=== PATIENT | female | born 1985 | race Caucasian/White ===

== ENCOUNTER 2019-07-19 02:54 | Emergency (ER) | payer BC, SELFPAY ==
--- NOTE | ~2019-07-19 | CT_ITS ---
EXAMINATION: CT abdomen pelvis w con DATE: 07/19/2019 04:25 INDICATION: Epigastric abdominal pain. Nausea and vomiting. TECHNIQUE: Computed tomography (CT) of the abdomen and pelvis was performed with 100 mL Omnipaque 350 intravenous contrast. Automated exposure control and iterative reconstruction technique were employe d. The dose-length product was 341.96 mGy-cm. COMPARISON: None. FINDINGS: The visualized portions of the lung bases demonstrate minimal atelectasis. No pleural effus ion. The heart size is normal. No pericardial effusion. There is diffuse hepatic steatosis. There are gallstones in the gallbladder including the gallbladder neck. There is mild fat stranding adjacent t o the gallbladder. The spleen, pancreas, adrenal glands, and kidneys are normal. There are no dilated loops of bowel. The appendix is normal. There are no pathologically enlarged lymph nodes. There is t race pelvic ascites. There is mild lumbar spondylosis. IMPRESSION: 1. Acute cholecystitis. Reviewed, dictated and finalized at location A. IMPRESSION: 1. Acute cholecystitis.
--- NOTE | 2019-07-19 03:02 | ED.ABDPAIN ---
HPI - Abdominal Pain General Chief Complaint: Abdominal Pain Stated Complaint: abd pain, n/v Time Seen by Provider: 07/19/19 03:01 History of Present Illness HPI narrative: Epigastric abdominal pain for the past few hours. Started after eating macaroni and cheese. She had similar pain several years ago and was told that it ws most likely her gall bladder. On review of the chart she did have an ultrasound at that time showing multiple gall stones. She never followed up. Related Data Allergies Allergy/AdvReac Type Severity Reaction Status Date / Time No Known Allergies Allergy Verified 07/19/19 03:13 Review of Systems Review of Systems: All systems reviewed & are unremarkable except as noted in HPI and below Constitutional: Constitutional: Reports chills Cardiovascular: Cardiovascular: Denies chest pain Respiratory: Respiratory: Denies dyspnea Gastrointestinal: Gastrointestinal: Reports abdominal pain and Reports nausea PMFSH Past Medical History Medical History (Updated 07/19/19 @ 05:41 by Roderick Buchanan MD) Gallstones Social History Social History (Updated 07/19/19 @ 03:26 by Roderick Buchanan MD) Smoking status: Never smoker Exam Const: General: no acute distress and alert Nutritional Appearance: well nourished Orientation/consciousness: patient oriented x3 HENMT: Head: normal to inspection Resp: Effort & Inspection: normal respiratory effort Auscultation: clear to auscultation bilaterally Cardio: Rate: regular rate Rhythm: regular rhythm GI: Inspection: non-distended GI Palp: Yes Soft to palpation, Yes Tenderness to palpation present (GI) (epigastrium), No Guarding due to palpation present (GI) and No Rebound tenderness present Neuro: General: patient oriented x3, moves all extremities, no focal motor deficits and CN's II-XI intact bilaterally Speech: normal speech Course Vital Signs Vital signs: Vital Signs Temperature 36.2 C L 07/19/19 03:10 Pulse Rate 91 07/19/19 03:10 Respiratory Rate 18 07/19/19 03:10 Blood Pressure 147/89 H 07/19/19 03:10 Pulse Oximetry 99 07/19/19 03:10 Temperature 36.2 C L 07/19/19 03:10 Pulse Rate 92 07/19/19 05:19 Respiratory Rate 17 07/19/19 05:19 Blood Pressure 131/89 07/19/19 05:19 Pulse Oximetry 100 07/19/19 05:19 MDM - Abdominal Pain Differential Diagnosis Differential diagnosis: Likely abdominal pain, pancreatitis and other (gastritis, acute cholecystitis) Medical Records Attestation: I reviewed the patient's medical records. Lab Data Attestation: I reviewed the patient's lab results. Result diagrams: 07/19/19 03:22 07/19/19 04:17 Labs: Lab Results 07/19/19 07/19/19 07/19/19 Range/Units 03:22 04:01 04:01 WBC 7.6 (4.5-10.0) K/mm3 RBC 4.13 L (4.2-5.4) M/mm3 Hgb 14.0 (12.0-15.0) g/dL Hct 41.7 (37.0-47.0) % MCV 101.0 H (80-100) fl MCH 33.9 (26-34) pg MCHC 33.6 (32-36) g/dl RDW 12.7 (11.5-14.5) % Plt Count 262 (150-375) k/mm3 MPV 9.9 (7.4-10.4) fl Immature Gran % (Auto) 0.4 (0-0.5) % Neut % (Auto) 60.8 (45.5-73.1) % Lymph % (Auto) 25.2 (18.3-44.2) % Sibley % (Auto) 11.9 H (2.6-8.5) % Eos % (Auto) 0.5 (0-4.4) % Baso % (Auto) 1.2 (0.2-1.2) % Lymph # (Auto) 1.92 (0.9-3.2) K/mm3 Sibley # (Auto) 0.9 H (0.1-0.6) K/mm3 Eos # (Auto) 0.0 (0-0.3) K/mm3 Baso # (Auto) 0.1 (0.0-0.1) K/mm3 Abs Immat Gran (auto) 0.03 (0.00-0.031) K/mm3 Absolute Neuts (auto) 4.6 (1.3-6.7) K/mm3 Absolute Nucleated RBC 0.0 (0.0-0.012) K/mm3 Nucleated RBC % 0.0 (0.0-0.2) % Sodium 132 L (137-145) mmol/L Potassium 3.8 (3.4-5.0) mmol/L Chloride 95 L (98-107) mmol/L Carbon Dioxide 25 (22-30) mmol/L BUN 3 L (7-17) mg/dL Creatinine 0.50 L (0.7-1.0) mg/dL Estim Creat Clear Calc Not Reportable Estimated GFR > 60 (59 - ) Glucose 134 H (65-105) mg/dL Calci
[2019-07-19 03:10] VITALS: BP 147/89; PULSE 91; RESP 18; TEMP 36.2; O2SAT 99
--- NOTE | 2019-07-19 03:10 | PC.NURSE ---
pt asked to provided urine sample. pt states she cannot go
[2019-07-19] MEDS: ONDANSETRON INJ 4 MG/2 ML VIAL IV PUSH (03:20)
[2019-07-19] MEDS: PANTOPRAZOLE SODIUM IV 40 MG VIAL IV PUSH (03:22)
[2019-07-19 03:28] LABS: Basophils Absolute Auto 0.1 K/mm3 (0.0-0.1); Basophils Percent Auto 1.2 % (0.2-1.2); Eosinophils Percent Auto 0.5 % (0-4.4); Hematocrit 41.7 % (37.0-47.0); Immature Granulocyte Absolute 0.03 K/mm3 (0.00-0.031); Immature Granulocyte Percent A 0.4 % (0-0.5); Lymphocytes Absolute Auto 1.92 K/mm3 (0.9-3.2); Lymphocytes Percent Auto 25.2 % (18.3-44.2); Mean Corpuscular HGB Conc 33.6 g/dl (32-36); Mean Corpuscular Hemoglobin 33.9 pg (26-34); Mean Platelet Volume 9.9 fl (7.4-10.4); Monocytes Absolute Auto 0.9 K/mm3 (0.1-0.6); Monocytes Percent Auto 11.9 % (2.6-8.5); Neutrophils Absolute Auto 4.6 K/mm3 (1.3-6.7); Neutrophils Percent Auto 60.8 % (45.5-73.1); Platelet Count Result 262 k/mm3 (150-375); Red Blood Count 4.13 M/mm3 (4.2-5.4); Red Cell Distribution Width 12.7 % (11.5-14.5); White Blood Count 7.6 K/mm3 (4.5-10.0)
[2019-07-19 04:14] LABS: Add Urine Microscopic? YES; Appearance Urine Clear (Clear); Bacteria Urine Trace /hpf; Bilirubin Urine Negative (Negative); Blood Urine Negative (Negative); Color Urine Yellow (Yellow); Glucose Urine UA Negative (Negative); Ketones Urine Trace mg/dL (Negative); Leukocyte Esterase Ur Negative LEU/UL (Negative); Mucus Urine Rare /lpf; Nitrate Urine Negative (Negative); Protein Urine Negative (Negative); RBC Urine 0-2 /hpf (0-2); Squamous Epithelial Cell Urine Occasional /hpf (Few); Urobilinogen Urine Negative mg/dL (<2.0); WBC Urine 0-3 /hpf
[2019-07-19 04:18] LABS: Estimated Glomerular Filt Rate > 60
[2019-07-19 04:21] LABS: Alanine Aminotransferase 102 U/L (4-35); Albumin Level 4.5 g/dL (3.5-5.1); Alkaline Phosphatase 76 U/L (38-126); Aspartate Amino Transferase 223 U/L (14-36); Bilirubin,Total 1.2 mg/dL (0.2-1.3); Blood Urea Nitrogen 3 mg/dL (7-17); Carbon Dioxide 25 mmol/L (22-30); Chloride 95 mmol/L (98-107); Estimated Glomerular Filt Rate > 60; Glucose 134 mg/dL (65-105); Lipase 86 U/L (23-300); Potassium 3.8 mmol/L (3.4-5.0); Sodium 132 mmol/L (137-145)
[2019-07-19 05:19] VITALS: BP 131/89; PULSE 92; RESP 17; O2SAT 100
[2019-07-19 05:45] VITALS: BP 130/77; PULSE 77; RESP 19; O2SAT 97
== END 2019-07-19 05:45 | disposition home or self-care (01) ==
PROVIDERS: Emergency Provider Emergency Medicine
DX: R10.84 Generalized abdominal pain (principal)
CPT/HCPCS: 36415; 74177; 80053; 81001; 81025; 83690; 85025; 96374; 96375; 99284; A9270; C9113; J2405; J3010; Q9967

== ENCOUNTER 2019-09-05 14:02 | Outpatient (CLI) | payer BC, SELFPAY ==
[2019-09-05 14:53] LABS: Alanine Aminotransferase 111 U/L (4-35); Albumin Level 4.3 g/dL (3.5-5.1); Alkaline Phosphatase 92 U/L (38-126); Amylase 51 U/L (30-110); Aspartate Amino Transferase 271 U/L (14-36); Bilirubin,Total 0.9 mg/dL (0.2-1.3); Lipase 42 U/L (23-300)
== END 2019-09-05 14:03 | disposition home or self-care (01) ==
PROVIDERS: Visit Provider Surgery
DX: K80.00 Calculus of gallbladder with acute cholecystitis without obstruction (principal); Z01.812 Encounter for preprocedural laboratory examination
CPT/HCPCS: 36415; 80076; 82150; 83690; 86850; 86900; 86901

== ENCOUNTER 2019-09-10 00:36 | Outpatient (CLI) | payer BC, SELFPAY ==
[2019-09-10 18:32] LABS: SARS-CoV-2 RNA PCR Negative
== END 2019-09-10 00:37 | disposition home or self-care (01) ==
LOC: ANHCOVIDDT 00:36
PROVIDERS: Visit Provider Surgery
DX: Z01.812 Encounter for preprocedural laboratory examination (principal); Z11.59 Encounter for screening for other viral diseases
CPT/HCPCS: 87635; C9803; U0003

== ENCOUNTER 2019-09-13 01:54 | Day surgery (SDC) | payer BC, SELFPAY ==
[2019-09-01 13:10] VITALS: BMI 24.3
[2019-09-13] VITALS (9 sets, daily range): BP systolic 104–134; BP diastolic 58–89; PULSE 61–102; RESP 12–20; TEMP 36.3–37; O2SAT 98–100
[2019-09-13] MEDS: LACTATED RINGERS 1,000 ML 30 ML IV CONT ×2 (08:10→10:40)
[2019-09-13] MEDS: KETOROLAC 15 MG/ML VIAL (*BKC) IV PUSH (08:10)
[2019-09-13 08:21] LABS: Hematocrit 38.4 % (37.0-47.0); Hemoglobin 13.3 g/dL (12.0-15.0); Mean Corpuscular HGB Conc 34.6 g/dl (32-36); Mean Corpuscular Hemoglobin 35.2 pg (26-34); Mean Corpuscular Volume 101.6 fl (80-100); Mean Platelet Volume 9.1 fl (7.4-10.4); Platelet Count Result 248 k/mm3 (150-375); Red Blood Count 3.78 M/mm3 (4.2-5.4); Red Cell Distribution Width 13.1 % (11.5-14.5); White Blood Count 7.3 K/mm3 (4.5-10.0)
[2019-09-13 08:31] LABS: Alanine Aminotransferase 79 U/L (4-35); Alkaline Phosphatase 93 U/L (38-126); Aspartate Amino Transferase 170 U/L (14-36); Bilirubin,Total 1.2 mg/dL (0.2-1.3)
--- NOTE | 2019-09-13 09:01 | PM.IMHP ---
H&P: HPI History of Present Illness Chief complaint: Acute Cholecystitis Narrative: Lalitha Piper is a 34 year old female who presents with a prior attack of abdominal pain and was worked up in the ED in June. She had evidence of acute cholecystitis, but was able to go home and felt better after some time. She now presents for elective lap ansley. Review of Systems Review of Systems: All systems reviewed & are unremarkable except as noted in HPI and below Constitutional: Constitutional: Denies chills, Denies fever(s), Denies headache(s) and Denies weight loss Eyes: Eyes: Denies change in vision ENT: Denies dizziness, Denies headache(s), Denies neck mass and Denies throat swelling Cardiovascular: Cardiovascular: Denies chest pain, Denies lightheadedness and Denies dyspnea Respiratory: Respiratory: Denies cough, Denies dyspnea and Denies wheezing Gastrointestinal: Gastrointestinal: Denies abdominal pain, Denies change in bowel habits, Denies nausea and Denies vomiting Genitourinary: Genitourinary: Denies hematuria and Denies dysuria Musculoskeletal: Musculoskeletal: Reports as per HPI Integumentary/Breasts: Skin/Breast: Reports as per HPI Neurologic: Denies dizziness and Denies headache(s) Allergic/Immunologic: Allergic/Immunologic: Denies throat swelling and Denies wheezing PMFSH Past Medical History Medical History Gallstones History of depression Family History Family History Mother Lupus Sibling Detached retina Grandparent Cancer Social History Social History Smoking packs per day: 0.5 Smoking cigarettes per day: 10.0 Years smoked: 10 Smoking pack-years: 5.00 Smoking status: Former smoker Tobacco type: e-cigarettes/vaping Additional smoking assessment comments: QUIT SMOKING CIGARETTES 6 YEARS AGO. 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 Gender identity (if verbalized by the patient): Female Spiritual care concerns: No Meds Home Medications and Allergies Home Medications Medication Instructions Recorded Confirmed Type multivitamin 1 tablet PO DAILY 09/01/19 09/13/19 History Allergies Allergy/AdvReac Type Severity Reaction Status Date / Time No Known Allergies Allergy Verified 09/13/19 08:21 Vital Signs Vital Signs - 24 hr 09/13/19 08:32 Temperature 37.0 C Pulse Rate 96 Respiratory Rate 20 Blood Pressure 125/77 Pulse Oximetry 100 Exam Const: General: no acute distress and alert Orientation/consciousness: patient oriented x3 HENMT: Head: normocephalic and atraumatic Ears: hearing grossly normal bilaterally General nose exam: Normal nares present Mouth: Yes Normal oral and palatal mucosa present Eyes: Periorbital: periorbital findings normal Sclera: sclerae normal EOM: EOMs intact bilaterally Neck: Neck: normal visual inspection, no lymphadenopathy and trachea midline Chest: Chest palpation & inspection: normal inspection of the chest Resp: Effort & Inspection: normal respiratory effort Auscultation: clear to auscultation bilaterally Cardio: Jugular venous distension: no JVD Rate: regular rate Rhythm: regular rhythm Heart sounds: S1 normal heart sound present and S2 normal heart sound present Peripheral pulses: Peripheral pulses 2+ throughout GI: Inspection: normal to inspection GI Palp: Yes Soft to palpation, No Tenderness to palpation present (GI), No Guarding due to palpation present (GI) and No Rebound tenderness present Percussion: Yes normal to percussion Auscultation: normal bowel sounds : General: Yes no CVA tenderness Back/Spine/Pelvis: Back: no CVA tenderness Neuro: General: patient oriented x3, no focal motor deficits and CN's II-X
--- NOTE | 2019-09-13 09:07 | WPDANESEPPF ---
Anes - Initial Pre Proc Eval Procedure: Operation Date: 09/13/19 09:30 Proposed Procedures p Laparoscopic Cholecystectomy, Possible Open - Benji Adames DO Date/Time: 09/13/19 09:07 Surgeon: Benji Adames DO Pre Op Diagnosis: Acute Cholecystitis Patient Data Age: 34 Gender: F Height: 1.65 m Weight: 65 kg Last Vital Signs Temp 37.0 C 09/13/19 08:32 Pulse 96 09/13/19 08:32 Resp 20 09/13/19 08:32 BP 125/77 09/13/19 08:32 Pulse Ox 100 09/13/19 08:32 Allergies Allergy/AdvReac Type Severity Reaction Status Date / Time No Known Allergies Allergy Verified 09/13/19 08:21 Home Medications Medication Instructions Recorded Confirmed Type multivitamin 1 tablet PO DAILY 09/01/19 09/13/19 History Laboratory Tests 09/13/19 09/13/19 08:07 08:07 WBC 7.3 K/mm3 K/mm3 (4.5-10.0) RBC 3.78 M/mm3 L M/mm3 (4.2-5.4) Hgb 13.3 g/dL g/dL (12.0-15.0) Hct 38.4 % % (37.0-47.0) MCV 101.6 fl H fl (80-100) MCH 35.2 pg H pg (26-34) MCHC 34.6 g/dl g/dl (32-36) RDW 13.1 % % (11.5-14.5) Plt Count 248 k/mm3 k/mm3 (150-375) MPV 9.1 fl fl (7.4-10.4) Total Bilirubin 1.2 mg/dL mg/dL (0.2-1.3) Direct Bilirubin 0.0 mg/dL mg/dL (0-0.3) AST 170 U/L H U/L (14-36) ALT 79 U/L H U/L (4-35) Alkaline Phosphatase 93 U/L U/L (38-126) Total Protein 7.0 g/dL g/dL (6.3-8.2) Albumin 4.0 g/dL g/dL (3.5-5.1) Patient hx anesthesia problems: none Family hx anesthesia problems: none [facility] Past Medical History Medical History (Updated 09/13/19 @ 09:08 by Rasta Casillas MD) Anxiety Eczema Gallstones History of depression Family History Family History Mother Lupus Sibling Detached retina Grandparent Cancer Social History Social History Smoking packs per day: 0.5 Smoking cigarettes per day: 10.0 Years smoked: 10 Smoking pack-years: 5.00 Smoking status: Former smoker Tobacco type: e-cigarettes/vaping Additional smoking assessment comments: QUIT SMOKING CIGARETTES 6 YEARS AGO. 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 Questions were solicited and answers provided to the satisfaction of the patient/family/POA.
[2019-09-13] MEDS: MIDAZOLAM HCL 2 MG/2 ML VIAL IV PUSH (09:20)
[2019-09-13] MEDS: ceFAZolin 2 GM/D5W 50 ML 2 GM/50 ML BAG IVPB (09:24)
[2019-09-13] MEDS: BUPIVACAINE/EPINEPHRINE 0.5% 10 ML VIAL 30 ML INFILTRATE (09:49)
--- NOTE | 2019-09-13 10:47 | PM.PROC ---
Procedure Note - Detailed Date of procedure: 09/13/19 Pre-op diagnosis: Acute Cholecystitis Post-op diagnosis: same Procedure performed: Laparoscopic Cholecystectomy Description of procedure: Procedure as well as risks, benefits, and alternatives were discussed with patient. Written consent was obtained and placed in chart prior to procedure. The patient was brought back to surgical suite. Patient was placed in supine position on operating table. Time-out was done to confirm patient and procedure. Patient was then intubated by the anesthesia department. Abdomen was prepped and draped in sterile fashion using chlorhexidine prep. 0.5% bupivacaine with epinephrine was infiltrated at each site of incision. An 11 millimeter vertical incision was made at the inferior portion of the umbilicus using a 15 blade scalpel. Blunt dissection was carried down to the linea alba. The linea alba was then incised using a 15 blade scalpel. The peritoneum was then bluntly entered. An 11 millimeter trocar was inserted and cabon dioxied insuflation was used to create a pneumoperitoneum. The camera was inserted and the abdomen was inspected. The patient was placed in reverse Trendelenberg position and rotated slightly to the left. A 5 millimeter incision was made in the epigastric region, and a 5 millimeter trocar was inserted under direct visualization. Two 5 millimeter incisions were made in the right upper quadrant, and two 5 millimeter trocars were inserted under direct visualization. The gallbladder was identified and grasped at the fundus and retracted superiorly. It was then grasped at the infundibulum retracted laterally. Careful dissection around the neck of the gallbladder was performed using blunt dissection with a [place] grasper and hook electrocautery. The cystic duct was identified, and a window was created behind it. The cystic artery was also identified and a window was created behind it. The critical view of safety was identified, visualizing the cystic duct running directly into the neck of the gallbladder, and the cystic artery running directly into the wall of the gallbladder. A 5 millimeter clip fly finisher was then used to place 2 clips proximally and 1 clip distally on both the cystic duct and cystic artery. They were then both transected using endoscopic scissors. Once safely away from the rohit hepatitis, the gallbladder was dissected free from the liver bed using hook electrocautery. Hemostasis was achieved along the way. The gallbladder was removed completely and then removed through the umbilical port. The liver bed was then inspected. Hemostasis appeared adequate, and our clips appeared secure. The area was gently irrigated with sterile saline. No other abnormalities were seen. The patient was flattened out in bed, and 1 final inspection was made around the abdominal cavity. The ports were then removed under direct visualization, the camera was removed, and the pneumoperitoneum was released. The fascia of the umbilical incision was approximated using an 0 Vicryl [id number] suture. The skin of the incisions was approximated using 4-0 Monocryl subcuticular sutures. Exofin glue was applied on top. The patient was then awakened from anesthesia, extubated, and transferred to recovery. Anesthesia: GETA and local (0.5% bupivicaine with epinephrine) Surgeon: Benji Adames DO Estimated blood loss (mL): 5 Complications: No immediate complications Condition: stable Disposition: same day Findings: This is a 34-year-old woman who presented with a prior episode of acute cholecystitis. She presented to the emergency department in June and a CT of her abdomen and pelvis showed evidence of acute cholecystitis. She had prior ultrasound 5 years ago that showed evidence of cholelithiasis. She improved after that initial episode in the emergency department and was minimally symptomatic after that. Discussions were made with the patient about treat
== END 2019-09-13 12:31 | disposition home or self-care (01) ==
PROVIDERS: Visit Provider Surgery
PROC: 0FT44ZZ Resection of Gallbladder, Percutaneous Endoscopic Approach (ICD-10-PCS; CPT 47562; principal; 2019-09-13 09:30)
DX: K80.10 Calculus of gallbladder with chronic cholecystitis without obstruction (principal); F17.290 Nicotine dependence, other tobacco product, uncomplicated
CPT/HCPCS: 47562; 36415; 80076; 85027; 88304; J0690; J1100; J1885; J2250; J2270; J2405; J2704; J7030; J7120

== ENCOUNTER 2021-09-29 05:36 | Inpatient (IN) | payer BC, SELFPAY ==
[2021-09-29] VITALS (25 sets, daily range): BP systolic 127–153; BP diastolic 82–108; PULSE 95–120; RESP 15–34; TEMP 36.1–36.3; O2SAT 93–100
--- NOTE | ~2021-09-29 | XR_ITS ---
EXAMINATION: XR abdomen obstructive series DATE: 10/01/2021 08:21 INDICATION: Adynamic ileus. TECHNIQUE: Upright and supine views of the abdomen were obtained. COMPARISON: CT abdomen pelvis 09/29/2021 FINDINGS: There are no dilated loops of bowel. No free intraperitoneal gas. There are airspace opacit ies at the lung bases, likely atelectasis. There are small pleural effusions. Surgical clips in the r ight upper quadrant are likely from cholecystectomy. IMPRESSION: 1. Nonobstructive bowel gas pattern. 2. Small pleural effusions. Reviewed, dictated and finalized at location A.
--- NOTE | ~2021-09-29 | XR_ITS ---
XR abdomen NG/feed tube insert INDICATION: Evaluate NG tube position. TECHNIQUE: Limited KUB perform for evaluating NG tube . COMPARISON: 10/01/2021 FINDINGS: NG tube tip in the stomach. Visualized bowel gas pattern is nonspecific.Cardiomegaly. Poss ible mild interstitial edema. Small right pleural effusion. IMPRESSION: 1: NG tube tip in the stomach. 2: Cardiomegaly with probable mild interstitial edema. Reviewed, dictated and finalized at location A.
--- NOTE | ~2021-09-29 | XR_ITS ---
EXAMINATION: XR chest 1V portable DATE: 10/02/2021 05:41 INDICATION: Respiratory failure. TECHNIQUE: A single frontal view of the chest was obtained. COMPARISON: Chest single view 10/01/21, chest CT 10/01/2021 FINDINGS: The lung volumes are small. There are small pleural effusions. There are airspace opacities at the lung bases. No pneumothorax. The heart size is normal. The endotracheal tube tip is 3.2 cm ab ove the shefali. The nasogastric tube tip is in the stomach. Surgical clips in the right upper quadran t are likely from cholecystectomy. A left upper extremity peripherally inserted central venous cathet er (PICC) is seen with tip at the superior cavoatrial junction. IMPRESSION: 1. Stable small lung volumes with airspace opacities at the lung bases, likely atelectasis. 2. Stable small pleural effusions. Reviewed, dictated and finalized at location A.
--- NOTE | ~2021-09-29 | CT_ITS ---
EXAMINATION: CT abdomen pelvis w con DATE: 09/29/2021 10:01 INDICATION: Epigastric abdominal pain, nausea and vomiting. Alcohol abuse. TECHNIQUE: Computed tomography (CT) of the abdomen and pelvis was performed with 100 CC Omnipaque 350 intravenous contrast. Automated exposure control and iterative reconstruction technique were employe d. Exam dose: 280.90 mGy-cm total exam DLP. COMPARISON: 07/19/2019 CT abdomen pelvis FINDINGS: Mild bilateral lower lobe atelectasis. Normal heart size. No pericardial or pleural effusio n. Diffuse hepatic steatosis. No hepatic space-occupying mass lesion is detected. Status post cholecystectomy. There is extensive fat stranding and fluid within the upper abdomen, surrounding the pancreas, extend ing along the left and right anterior pararenal fascia, surrounding the duodenum and portions of the stomach. There is duodenal dilatation and fluid suggesting adynamic ileus. Findings are consistent wi th acute pancreatitis. Normal morphology of the adrenal glands. Normal splenic size. No renal mass lesion or urinary tract c alculus or hydroureteronephrosis. Small wedge-shaped area of diminished attenuation in the lateral lo wer pole the right kidney may be due to acute pyelonephritis. Normal caliber of the abdominal aorta. No intraperitoneal or retroperitoneal or pelvic mass lesion or adenopathy or ascites. The uterus, adnexal areas and urinary bladder are unremarkable. There is mild free fluid in the parac olic gutters and adnexal areas and posterior cul-de-sac. No bowel obstruction or intraperitoneal free air. Small fat-containing umbilical hernia. Included skeletal structures are unremarkable. IMPRESSION: Acute pancreatitis Reviewed, dictated and finalized at Location A. Reviewed, dictated and finalized at location A. IMPRESSION: Acute pancreatitis
--- NOTE | ~2021-09-29 | XR_ITS ---
EXAMINATION: XR chest PICC line Exam Date/Time: 10/01/2021 17:38 CDT HISTORY: picc placement Comparison: X-ray chest 1:[address] chest abdomen and pelvis, 4:06 PM RESULT: Lines, tubes, and devices: New left upper extremity PICC, terminating at the cavoatrial junction. En dotracheal and nasogastric tubes remain in stable and good position. Cholecystectomy clips Lungs and pleura: Persistent bilateral lower lung consolidation and small-moderate bilateral effusio ns. Cardiomediastinal silhouette: Stable. Other: No acute osseous or upper abdominal finding. IMPRESSION: New left upper extremity PICC, in good position. No other significant interval change. Reviewed, dictated and finalized at location K.
--- NOTE | ~2021-09-29 | US_ITS ---
EXAMINATION: US renal BI DATE: 10/01/2021 18:17 INDICATION: Acute kidney injury rule out hydronephrosis TECHNIQUE: Multiple ultrasound grayscale images of the kidneys were obtained. COMPARISON: CT cap, same date FINDINGS: The right kidney measures 11.4 x 4.7 x 5.7 cm. The left kidney measures 12.8 x 5.7 x 6.1 cm. The kidn eys demonstrate normal parenchymal echogenicity. Right midpole renal anomaly detected on prior CT is not well seen sonographically There is no hydronephrosis. The bladder is normal. Echogenic liver pare nchyma. IMPRESSION: 1. No hydronephrosis. 2. Hepatic steatosis. Reviewed, dictated and finalized at location K.
--- NOTE | ~2021-09-29 | US_ITS ---
EXAMINATION: US percutaneous drain w cath DATE: 10/02/2021 16:46 INDICATION: Ascites. Abdominal compartment syndrome. TECHNIQUE: The procedure and its risks, benefits, and alternatives were discussed with the patient's mother. Potential risks discussed included bleeding and infection. The skin was prepped and draped in sterile fashion. 1% lidocaine was used for local anesthesia. Under ultrasound guidance, an 8.5 Fr pi gtail catheter with trochar was advanced into the ascites in the left lower quadrant. The catheter wa s stitched to the skin and a dressing was applied. There were no immediate complications. FINDINGS: Ultrasound images demonstrate ascites and the catheter within the fluid. IMPRESSION: 1. Successful ultrasound-guided peritoneal drain placement yielding clear, brown fluid. Reviewed, dictated and finalized at location A. IMPRESSION: 1. Successful ultrasound-guided peritoneal drain placement yielding clear, bro wn fluid.
--- NOTE | ~2021-09-29 | CT_ITS ---
EXAMINATION: CT BRAIN W/O DATE: 10/01/2021 16:14 INDICATION: Cardiac arrest. Acute pancreatitis. TECHNIQUE: Computed tomography (CT) of the head was performed without intravenous contrast. The dose- length product was 605.33 mGy-cm. Automated exposure control and iterative reconstruction technique w ere employed. COMPARISON: No prior studies for comparison. FINDINGS: Normal brain parenchymal volume for age. Normal rodas-white differentiation. No acute intrac ranial hemorrhage, infarction, mass or mass effect. No ventriculomegaly or midline shift. Midline sagittal images demonstrate a normal corpus callosum, c raniovertebral junction and sella turcica. Basilar cisterns are patent. Paranasal sinuses and mastoids are pneumatized. No depressed skull fractures. IMPRESSION: 1. No acute intracranial abnormality. Reviewed, dictated and finalized at location A.
--- NOTE | ~2021-09-29 | CT_ITS ---
EXAMINATION: CT chest abdomen pelvis wo con DATE: 10/01/2021 16:14 INDICATION: Cardiac arrest, acute pancreatitis . TECHNIQUE: Computed tomography (CT) of the chest, abdomen, and pelvis was performed without intraveno us contrast. Automated exposure control and iterative reconstruction technique were employed. The dos e-length product was 1058.83 mGy-cm. COMPARISON: CT abdomen and pelvis 09/29/2021. FINDINGS: Endotracheal and nasogastric tubes, in good position Thoracic aorta: No significant dilation or calcification. Lung parenchyma and airways: New bilateral upper lung dependent and lower lobe consolidation with vol ume loss. Thoracic inlet, axillae and chest wall: No thyroid or soft tissue mass. No axillary lymphadenopathy. Mild chest wall edema. Likely presternal soft tissue contusion. Mediastinum: No mass or lymphadenopathy. Heart and pericardium: Trace pericardial fluid. Coronary artery calcifications: Absent. Pleura: New moderate bilateral pleural fluid collections. Thoracic bones: Nondisplaced fractures anterior right fifth and sixth ribs. ABDOMEN/PELVIS: Liver: Hepatomegaly and steatosis. Biliary/Gallbladder: Gallbladder is absent. No bile duct dilation. Pancreas: Slightly increased pancreatic edema. Slightly increased degree of peripancreatic fluid. Spleen: Normal. Adrenals:No mass. Kidneys: Wedge-shaped hyperdensity in the right mid pole, may reflect contrast staining an area of is chemia/infarct or infection. GI tract: Decreased dilation of the second portion of the duodenum. Colonic submucosal fat as can be seen with chronic IBD, obesity, chemotherapy treatment, and celiac disease. No small or large bowel d ilation. Appendix not visualized. Mesentery/Peritoneum: Significantly increased volume of mesenteric, peritoneal, and deep pelvic fluid . Slightly hyperdense fluid layering in the left paracolic gutter. Ill-defined hyperdensity within a fluid collection in the anterior upper abdominal mesentery. Retroperitoneum: No mass Pelvis: The bladder is decompressed by a Abbasi catheter. Soft Tissues: Increased body wall edema. Abdominopelvic bones: No acute osseous finding in the abdomen/pelvis. IMPRESSION: Nondisplaced fractures of the anterior right fifth and sixth ribs. New bilateral dependent and lower lobe atelectasis/consolidation. New moderate bilateral pleural effusions. Increased pancreatic edema and peripancreatic inflammatory change. Possible upper abdominal mesenteric hematoma. Increased, now moderate abdominopelvic ascites. Hyperdensity in areas of abdominopelvic fluid may reflect proteinace ous or hemorrhagic content. Small infectious focus versus infarct in the right kidney midpole. Reviewed, dictated and finalized at location K. IMPRESSION: Nondisplaced fractures of the anterior right fifth and sixth ribs. New bilatera l dependent and lower lobe atelectasis/consolidation. New moderate bilateral pl eural effusions. Increased pancreatic edema and peripancreatic inflammatory matias nge. Possible upper abdominal mesenteric hematoma. Increased, now moderate abdo minopelvic ascites. Hyperdensity in areas of abdominopelvic fluid may reflect p roteinaceous or hemorrhagic content. Small infectious focus versus infarct in t he right kidney midpole.
--- NOTE | ~2021-09-29 | XR_ITS ---
EXAMINATION: XR chest ET placement DATE: 10/01/2021 13:21 INDICATION: Intubation. TECHNIQUE: A single frontal view of the chest was obtained. COMPARISON: CT abdomen and pelvis 09/29/2021 FINDINGS: There are airspace opacities in the perihilar regions and lower lung zones. There is a smal l left pleural effusion. No pneumothorax. The heart size is normal. The endotracheal tube tip is 1.6 cm above the shefali. The nasogastric tube tip is in the stomach. Surgical clips in the right upper qu adrant are likely from cholecystectomy. IMPRESSION: 1. Airspace opacities in the perihilar regions and lower lung zones, consistent with atelectasis vers us pneumonia versus pulmonary edema. 2. Small left pleural effusion. Reviewed, dictated and finalized at location A. IMPRESSION: 1. Airspace opacities in the perihilar regions and lower lung zones, consistent with atelectasis versus pneumonia versus pulmonary edema. 2. Small left pleural effusion.
[2021-09-29] MEDS: ONDANSETRON INJ 4 MG/2 ML VIAL IV PUSH ×5 (05:57→23:03)
[2021-09-29] MEDS: HYDROmorphone HCL INJ (*CRX) 1 MG/ML SYR 0.5 MG IV PUSH ×9 (06:00→23:02)
[2021-09-29] MEDS: SODIUM CHLORIDE 0.9% IV 2,000 ML 999 ML IV CONT (06:01)
[2021-09-29] MEDS: FAMOTIDINE 20 MG/2 ML VIAL IV PUSH (06:01)
--- NOTE | 2021-09-29 06:09 | ED.GENADULT ---
HPI - General Adult General Chief complaint: Abdominal Pain <Carlos Mcmullen MD - Last Filed: 09/29/21 07:07> Stated complaint: abd pain <Carlos Mcmullen MD - Last Filed: 09/29/21 07:07> Time Seen by Provider: 09/29/21 05:41 <Carlos Mcmullen MD - Last Filed: 09/29/21 07:07> History of Present Illness HPI narrative: This is a 36-year-old female with a history of alcohol use disorder presents to ED with sudden onset of epigastric pain that started approximately midnight. It is in the epigastric area and radiates to the rest of her stomach. It is 10 on 10 in intensity. Sudden onset constant. She felt like this before when she had gallbladder disease. There are no exacerbating or relieving factors. Is associated with persistent nausea and vomiting the patient has not been able to keep down water or food. She also has associated chills. She denies diarrhea or urinary symptoms. She denies chest pain or difficulty breathing. <Carlos Mcmullen MD - Last Filed: 09/29/21 07:07> Related Data Home medications: Home Medications Medication Instructions Recorded Confirmed multivitamin 1 tablet PO DAILY 09/01/19 09/30/19 <Carlos Mcmullen MD - Last Filed: 09/29/21 07:07> Allergies/adverse reactions: Allergies Allergy/AdvReac Type Severity Reaction Status Date / Time No Known Allergies Allergy Verified 09/29/21 07:00 <Carlos Mcmullen MD - Last Filed: 09/29/21 07:07> Review of Systems Review of Systems: CONSTITUTIONAL: Denies night sweats. EYES: No eye pain ENT: Denies rhinorrhea CARDIOVASCULAR: Denies palpitations RESPIRATORY: Denies hemoptysis GASTROINTESTINAL: Denies hematemesis GENITOURINARY: Denies hematuria. SKIN: Denies rash MUSCULOSKELETAL: Denies myalgia. NEUROLOGIC: Denies weakness. PSYCHIATRIC: Denies delusions <Carlos Mcmullen MD - Last Filed: 09/29/21 07:07> [facility] Past Medical History Medical History: Medical History (Updated 09/29/21 @ 11:52 by Kirsten Fisher MD) Anxiety Eczema Gallstones History of depression <Carlos Mcmullen MD - Last Filed: 09/29/21 07:07> Surgical History Surgical History: Surgical History Hx laparoscopic cholecystectomy <Carlos Mcmullen MD - Last Filed: 09/29/21 07:07> Family History Family History: Family History Mother Lupus Sibling Detached retina Grandparent Cancer <Carlos Mcmullen MD - Last Filed: 09/29/21 07:07> Social History Social History: Social History Smoking packs per day: 0.5 Smoking cigarettes per day: 10.0 Years smoked: 10 Smoking pack-years: 5.00 Smoking status: Former smoker Tobacco type: e-cigarettes/vaping Additional smoking assessment comments: QUIT SMOKING CIGARETTES 6 YEARS AGO. 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 EYES: PERRLA/EOMI, NOSE: Normal no drainage NECK: Supple, Trachea midline RESPIRATORY: CTAB, No increased work of breathing. CARDIOVASCULAR: S1S2 appreciated ABDOMINAL: abdomen is exquisitely tender in the epigastric area, Mild tenderness the right upper quadrant.the rest of the abdomen is soft nontender with no guarding or rebound. MUSCULOSKELETAl: No obvious deformities NEURO: Alert. Moving 4/4 extremities SKIN:: Warm, dry. Normal color PSYCHIATRIC: Normal affect <Carlos Mcmullen MD - Last Filed: 09/29/21 07:07> Course Course Emergency Course: This is a 36-year-old female presenting to ED with sudden onset of
[2021-09-29 06:29] LABS: Basophils Absolute Auto 0.2 K/mm3 (0.0-0.1); Basophils Percent Auto 1.3 % (0.2-1.2); Eosinophils Absolute Auto 0.1 K/mm3 (0-0.3); Eosinophils Percent Auto 0.8 % (0-4.4); Hematocrit 41.5 % (37.0-47.0); Hemoglobin 13.5 g/dL (12.0-15.0); Immature Granulocyte Absolute 0.08 K/mm3 (0.00-0.031); Immature Granulocyte Percent A 0.5 % (0-0.5); Lymphocytes Absolute Auto 3.83 K/mm3 (0.9-3.2); Lymphocytes Percent Auto 25.4 % (18.3-44.2); Mean Corpuscular HGB Conc 32.5 g/dl (32-36); Mean Corpuscular Hemoglobin 36.2 pg (26-34); Mean Corpuscular Volume 111.3 fl (80-100); Mean Platelet Volume 9.5 fl (7.4-10.4); Monocytes Absolute Auto 1.4 K/mm3 (0.1-0.6); Monocytes Percent Auto 9.5 % (2.6-8.5); Neutrophils Absolute Auto 9.4 K/mm3 (1.3-6.7); Neutrophils Percent Auto 62.5 % (45.5-73.1); Platelet Count Result 322 k/mm3 (150-375); Red Blood Count 3.73 M/mm3 (4.2-5.4); Red Cell Distribution Width 12.3 % (11.5-14.5); White Blood Count 15.1 K/mm3 (4.5-10.0)
[2021-09-29 06:46] LABS: Alanine Aminotransferase 54 U/L (6-35); Albumin Level 3.8 g/dL (3.5-5.1); Alkaline Phosphatase 148 U/L (38-126); Anion Gap 15 mmol/L (8-16); Aspartate Amino Transferase 230 U/L (14-36); Bilirubin,Total 1.4 mg/dL (0.2-1.3); Blood Urea Nitrogen 5 mg/dL (7-17); Calcium 7.8 mg/dL (8.4-10.2); Carbon Dioxide 21 mmol/L (22-30); Chloride 105 mmol/L (98-107); Estimated CRCL calculation 116 ml/min; Estimated Glomerular Filt Rate > 60; Glucose 161 mg/dL (65-110); Potassium 3.2 mmol/L (3.4-5.0); Sodium 141 mmol/L (137-145)
[2021-09-29 07:13] LABS: Ethanol 178 mg/dL (<10)
[2021-09-29 07:49] LABS: Lipase 31923 U/L (23-300)
[2021-09-29 09:39] LABS: SARS-CoV-2 RNA PCR Negative
[2021-09-29] MEDS: SODIUM CHLORIDE 0.9% IV 1,000 ML 999 ML IV CONT (09:41)
[2021-09-29 11:58] LABS: Glucose Point of Care 161 mg/dl (65-105)
--- NOTE | 2021-09-29 12:40 | PM.IMHP ---
H&P: HPI History of Present Illness Date/Time: 09/29/21 12:40 Chief Complaint: Abdominal pain. Narrative: This is a pleasant 36-year-old female with history of alcohol abuse who presented to the emergency department via EMS from home for evaluation of abdominal pain. Last evening around midnight when she was getting ready for bed she developed nausea and she had an episode of nonbilious, nonbloody emesis. She goes on to say that it is not unusual for her to have such episodes since she had a cholecystectomy a couple of years ago however she continued to have multiple episodes of emesis followed by dry heaves throughout the night. After a couple of hours she developed abdominal pain which she initially attributed to the retching, however it quickly increased in severity and has been constant since that time. She describes a squeezing and aching pain centered in the epigastric region which radiates diffusely throughout the upper abdomen. At its height she rates the pain 9.5/10 though IV pain medications given in the emergency department have taken the edge off. Pertinent findings on workup in the emergency department include a white blood cell count of 15.1, total bili I 0.4, AST 230, ALT 54, alkaline phosphatase 148, lipase of 31,923, and ethyl alcohol level was 178. CT of the abdomen and pelvis showed findings of acute pancreatitis and suggestions of adynamic ileus and she is being admitted in this setting for further care. It should be noted that she has a history of alcohol abuse, previously drinking a half of a 5th of vodka a day. Two weeks ago she started outpatient treatment and she has been cutting back on her alcohol consumption, now reportedly drinking less than a half a pt of vodka a day. Librium has helped with her symptoms though she does still get tremors. She reports that her last drink was over 24 hours ago though again her alcohol level was 178 at 06:00. Review of Systems Review of Systems: Twelve systems were reviewed. No fever, chills, or sweats. No recent cold or flu symptoms. No known sick contacts. She denies chest pain. Reports mild shortness of breath due to splinting as deep breaths make her pain worse. She had a normal bowel movement 2 days ago. No history of alcohol withdrawal seizures. She denies hallucinations. Except as documented, all other systems were reviewed and are negative. [facility] Past Medical History Medical History (Updated 09/29/21 @ 13:32 by Carrie Walter PA-C) Alcohol abuse Anxiety Cystic acne Depression Eczema Hepatic steatosis Surgical History Surgical History (Updated 09/29/21 @ 13:16 by Carrie Walter PA-C) History of laparoscopic cholecystectomy (08/2019) Family History Family History Mother Lupus Sibling Detached retina Grandparent Cancer Social History Social History (Updated 09/29/21 @ 13:17 by Carrie Walter PA-C) Social History: Surrogate medical decision maker: Lalitha Piper, mother. Code status: Full code. Smoking packs per day: 0.5 Smoking cigarettes per day: 10.0 Years smoked: 10 Smoking pack-years: 5.00 Smoking status: Former smoker Tobacco type: e-cigarettes/vaping Additional smoking assessment comments: Quit using cigarettes in 2015, now vapes. Alcohol intake: current Alcohol use details: Previously drank a half of a 5th of vodka a day, now reportedly drinking less than a half pt. Substance use: never Additional living arrangements comments: The patient lives with her fiance in [place]. Additional occupation/education comments: Artist, works from home. Spiritual care concerns: No Meds Home Medications and Allergies Home Medications Medication Instructions Recorded Confirmed Type multivitamin 1 tablet PO DAILY 09/01/19 09/30/19 History Allergies Allergy/AdvReac Type Severity Reaction Status Date / Time No Known Allergies Allergy Verifie
[2021-09-29] MEDS: SODIUM CHLORIDE 0.9% IV 1,000 ML 200 ML IV CONT ×2 (12:48→17:11)
[2021-09-29] MEDS: POTASSIUM CHLORIDE INJ 40 MEQ in SODIUM CHLORIDE 0.9% IV 500 ML 130 MEQ IVPB (12:48)
[2021-09-29] MEDS: diazePAM INJ (*CRX) 10 MG/2 ML SYRINGE 5 MG IV PUSH ×3 (14:36→23:01)
--- NOTE | 2021-09-29 14:46 | PC.NURSE ---
Patient report called to MARIAH Redmond. All questions answered at this time.
--- NOTE | 2021-09-29 15:15 | ADMGEN ---
This patient, Lalitha Piper, was admitted to Medical Room 345-01. Patient/family oriented to hospital policies and general routines including ID bracelet, bed and alarms, visiting hours, pain management, procedures, bathroom and other care routines, personal items, smoking policy, room service/diet, and visiting hours. Information on how to activate the Rapid Response Team has been discussed. Patient/Family are encouraged to report perceived risks to care and to ask questions if they do not understand what they are told or what they should do.
[2021-09-29 17:09] LABS: Glucose Point of Care 141 mg/dl (65-105)
[2021-09-29] MEDS: NICOTINE (*PBKC) 7 MG PATCH 1 PATCH TRANSDERM (22:31)
[2021-09-29] MEDS: chlordiazePOXIDE (*CRX) 10 MG CAPSULE PO (22:52)
--- NOTE | 2021-09-29 23:00 | PC.NURSE ---
Pt became severely nauseous and threw up shortly after taking ALIYA 10mg librium; RKWA performed w/ score of 13, pt given IV Valium at this time
[2021-09-30] VITALS (9 sets, daily range): BP systolic 99–114; BP diastolic 63–74; PULSE 116–144; RESP 18–20; TEMP 36.1–37.1; O2SAT 96–98
[2021-09-30 00:12] LABS: Glucose Point of Care 140 mg/dl (65-105)
[2021-09-30] MEDS: HYDROmorphone HCL INJ (*CRX) 1 MG/ML SYR 0.5 MG IV PUSH ×2 (01:37→05:02)
[2021-09-30] MEDS: SODIUM CHLORIDE 0.9% IV 1,000 ML 200 ML IV CONT ×2 (04:11→09:34)
[2021-09-30 05:59] LABS: Hematocrit 46.2 % (37.0-47.0); Hemoglobin 15.1 g/dL (12.0-15.0); Mean Corpuscular HGB Conc 32.7 g/dl (32-36); Mean Corpuscular Hemoglobin 36.1 pg (26-34); Mean Corpuscular Volume 110.5 fl (80-100); Mean Platelet Volume 9.8 fl (7.4-10.4); Platelet Count Result 253 k/mm3 (150-375); Red Blood Count 4.18 M/mm3 (4.2-5.4); White Blood Count 15.2 K/mm3 (4.5-10.0)
[2021-09-30 06:10] LABS: Iron 113 ug/dL (37-170)
[2021-09-30 06:19] LABS: Percent Iron Saturation 47 % (20-50)
[2021-09-30] MEDS: ONDANSETRON INJ 4 MG/2 ML VIAL IV PUSH (06:25)
[2021-09-30 06:28] LABS: Alanine Aminotransferase 37 U/L (6-35); Alkaline Phosphatase 87 U/L (38-126); Anion Gap 7 mmol/L (8-16); Aspartate Amino Transferase 138 U/L (14-36); Bilirubin,Total 3.4 mg/dL (0.2-1.3); Blood Urea Nitrogen 9 mg/dL (7-17); Calcium 5.2 mg/dL (8.4-10.2); Carbon Dioxide 21 mmol/L (22-30); Chloride 100 mmol/L (98-107); Estimated CRCL calculation 118 ml/min; Estimated Glomerular Filt Rate > 60; Glucose 120 mg/dL (65-110); Potassium 4.2 mmol/L (3.4-5.0); Sodium 128 mmol/L (137-145)
[2021-09-30 06:31] LABS: Magnesium 0.9 mg/dL (1.6-2.3)
[2021-09-30] MEDS: chlordiazePOXIDE (*CRX) 10 MG CAPSULE PO ×3 (06:33→22:16)
[2021-09-30] MEDS: FAMOTIDINE 20 MG/2 ML VIAL IV PUSH ×2 (06:35→20:36)
[2021-09-30 07:01] LABS: Glucose Point of Care 157 mg/dl (65-105)
[2021-09-30 07:17] LABS: Lipase 6711 U/L (23-300)
--- NOTE | 2021-09-30 07:21 | WPDGICN ---
Assessment and Plan Assessment and plan (1) Acute pancreatitis: Code(s): K85.90 - Acute pancreatitis without necrosis or infection, unspecified Status: Acute Assessment and Plan: Patient with acute pancreatitis manifested by elevated lipase levels as well as abnormal CT scan. Elevated LFTs likely on this basis. Will monitor LFTs and fractionate the bilirubin. If bilirubin fails to improve then follow-up MRCP may be indicated in a day or 2. At the present time treatment with NPO bowel rest pain control or encouraged IV fluid rehydration and monitor laboratory studies. (2) Alcohol abuse: Code(s): F10.10 - Alcohol abuse, uncomplicated Status: Acute Assessment and Plan: Patient with ongoing alcohol abuse. Currently monitored at [facility]. Plan is for continued alcohol rehabilitation and alcohol avoidance if at all possible. Watch for signs of withdrawal during this hospital stay. GI Consult Note Consult date/time: 09/30/21 07:21 Reason for consult: Acute pancreatitis. HPI: Lalitha Piper is a 36 year old female With an underlying history of alcohol abuse I am asked to see at the request of the emergency room because of acute pancreatitis. Patient has a history of cholecystectomy 2 years ago because of recurrent nausea vomiting. She has a history of ongoing alcohol abuse. Drinking heavily typically vodka. She recently has been followed at [facility] and has attempted to decrease her alcohol Intake. She was started on Librium 2 weeks ago because of concerns over withdrawal symptoms. Patient developed recurrent nausea vomiting along with diffuse abdominal pain that persisted in yesterday presented to the emergency room. She was found to have a markedly elevated lipase. CT scan consistent with pancreatitis. And also on elevated alcohol level. patient denies any other change in medication. She has had no recent travel. Family history noncontributory. Review of Systems Review of Systems: Review of systems noncontributory. FOR[facility]LY [facility] Past Medical History Medical History (Updated 09/29/21 @ 13:32 by Carrie Walter PA-C) Alcohol abuse Anxiety Cystic acne Depression Eczema Hepatic steatosis Surgical History Surgical History (Updated 09/29/21 @ 13:16 by Carrie Walter PA-C) History of laparoscopic cholecystectomy (08/2019) Family History Family History Mother Lupus Sibling Detached retina Grandparent Cancer Social History Social History (Updated 09/29/21 @ 13:17 by Carrie Walter PA-C) Social History: Surrogate medical decision maker: Lalitha Piper, mother. Code status: Full code. Smoking packs per day: 0.5 Smoking cigarettes per day: 10.0 Years smoked: 10 Smoking pack-years: 5.00 Smoking status: Current every day smoker Tobacco type: e-cigarettes/vaping Additional smoking assessment comments: Quit using cigarettes in 2016, now vapes. Alcohol intake: current Drinks per week: 70 Alcohol use details: Previously drank a half of a 5th of vodka a day, now reportedly drinking less than a half pt. Substance use: unknown Additional living arrangements comments: The patient lives with her fiance in [place]. Additional occupation/education comments: Artist, works from home. Spiritual care concerns: No Meds Home Medications and Allergies Home Medications Medication Instructions Recorded Confirmed Type multivitamin 1 tablet PO DAILY 09/01/19 09/29/21 History chlordiazepoxide 10 mg tablet 10 mg PO TID 09/29/21 09/29/21 History Allergies Allergy/AdvReac Type Severity Reaction Status Date / Time No Known Allergies Allergy Verified 09/29/21 15:23 Vital Signs Vital Signs - 24 hr 09/29/21 07:30 09/29/21 08:00 09/29/21 08:30 Temperature Pulse Rate 99 103 H 105 H Respiratory Rate 20 23 H 19 Blood Pressure 131/90 130/91 H 129/82 Pulse
[2021-09-30 07:36] LABS: Band Neutrophils Percent 19 % (0-6); Metamyelocytes Percent 4 %; Monocytes Absolute Manual 0.15 K/mm3 (0.1-0.90); Monocytes Percent Manual 1 % (3-9); Neutrophils Absolute Manual 14.44 K/mm3 (1.7-7.2); Neutrophils Percent Manual 76 % (46-73); Total Cells Counted 100
[2021-09-30 07:37] LABS: Platelet Estimate Adequate (Adequate)
[2021-09-30 07:38] LABS: Folic Acid 3.5 ng/mL (2.76->20)
[2021-09-30] MEDS: THIAMINE HCL 200 MG/2 ML VIAL 100 MG IV PUSH (09:31)
[2021-09-30] MEDS: FOLIC ACID 1 MG/0.2 ML INJ IV PUSH (09:31)
[2021-09-30] MEDS: NICOTINE (*PBKC) 7 MG PATCH 1 PATCH TRANSDERM (09:32)
[2021-09-30] MEDS: ENOXAPARIN 40 MG/0.4 ML SYRINGE SUB-Q (09:32)
[2021-09-30 10:20] LABS: Anion Gap 7 mmol/L (8-16); Blood Urea Nitrogen 11 mg/dL (7-17); Carbon Dioxide 21 mmol/L (22-30); Chloride 102 mmol/L (98-107); Estimated CRCL calculation 100 ml/min; Estimated Glomerular Filt Rate > 60; Glucose 110 mg/dL (65-110); Potassium 4.2 mmol/L (3.4-5.0); Sodium 130 mmol/L (137-145)
--- NOTE | 2021-09-30 11:16 | P.PNIM_ITS ---
Progress Note: A&P Assessment and Plan (1) Acute pancreatitis: Code(s): K85.90 - Acute pancreatitis without necrosis or infection, unspecified Status: Acute Assessment and Plan: Most likely related to alcohol abuse; she is status post cholecystectomy several years ago and there was no evidence of ductal dilatation on imaging. * Appreciate gastroenterology consultation * Continue with IV fluid rehydration NS 125 ml/hr and bowel rest. NPO diet * Analgesics and antiemetics available as needed. * Trend lipase. Improved to 6700 today * NPO diet * Will discontinue enoxaparin as pt is at risk for hemorrhagic pancreatitis. (2) Systemic inflammatory response syndrome: Code(s): R65.10 - Systemic inflammatory response syndrome (SIRS) of non-infectious origin without acute organ dysfunction Status: Acute Assessment and Plan: She has evidence of a systemic inflammatory response with tachycardia, tachypnea, and leukocytosis * [place] to be secondary to acute pancreatitis * Continue with close monitoring (3) Transaminitis: Code(s): R74.01 - Elevation of levels of liver transaminase levels Status: Acute Assessment and Plan: Likely due to a combination of factors including chronic alcohol abuse, diffuse hepatic steatosis noted on imaging, and pancreatitis. * Increase in total bilirubin today * Will evaluate indirect bilirubin levels * MRCP should be considered in 1-2 days if no improvement in bilirubin or LFTs (4) Electrolyte abnormality: Code(s): E87.8 - Other disorders of electrolyte and fluid balance, not elsewhere classified Status: Acute Assessment and Plan: Likely multifactorial secondary to acute pancreatitis and alcohol abuse * Hypokalemia: Resolved with supplementation. * Hyponatremia: Sodium improved with rehydration * Hypomagnesemia: Mag is 0.9. Will give 3 g IV magnesium sulfate * Hypocalcemia: Mag is down to 4.0 (5.6 corrected). Following magnesium supplementation, 1 g IV Calcium gluconate * Repeat BMP and mag following magnesium and calcium supplementation (5) Adynamic ileus: Code(s): K56.0 - Paralytic ileus Status: Acute Assessment and Plan: Related to pancreatitis. * Continue bowel rest, IV fluids, and supportive care. (6) Alcohol abuse: Code(s): F10.10 - Alcohol abuse, uncomplicated Status: Acute Assessment and Plan: Within the past couple weeks she has started outpatient therapy for her alcohol abuse and she is currently taking Librium while tapering off of alcohol. Currently drinking less than half a pint of vodka/day. Last drink 24 hours prior to presentation * Continue scheduled Librium 10 mg q8h * CIWA protocol in place. Scores 5-7 today * Valium as needed for CIWA >8 (due to IV ativan shortage) * Thiamine and folic acid supplementation. * Will need to return to outpatient program on resolution of acute illness Subjective Date/time seen: 09/30/21 11:16 Interval history: Date of service: 09/30/2021 Lalitha Piper is a 36-year-old female with a history of alcohol abuse, depression, anxiety, hepatic steatosis, history of laparoscopic cholecystectomy who is seen in follow-up for acute pancreatitis. She is feeling poorly today. She complains of cramping/bloating abdominal discomfort that she rates as 5/10. She occasionally become short of breath with this pain. She denies nausea, vomiting, fever, or chills. She states she is a bit dizzy after getting Li brium. She denies shakiness or tremors. Denies palpitations. Denies
--- NOTE | 2021-09-30 11:16 | PM.IMPN ---
Progress Note: A&P Assessment and Plan (1) Acute pancreatitis: Code(s): K85.90 - Acute pancreatitis without necrosis or infection, unspecified Status: Acute Assessment and Plan: Most likely related to alcohol abuse; she is status post cholecystectomy several years ago and there was no evidence of ductal dilatation on imaging. Appreciate gastroenterology consultation Continue with IV fluid rehydration NS 125 ml/hr and bowel rest. NPO diet Analgesics and antiemetics available as needed. Trend lipase. Improved to 6700 today NPO diet Will discontinue enoxaparin as pt is at risk for hemorrhagic pancreatitis. (2) Systemic inflammatory response syndrome: Code(s): R65.10 - Systemic inflammatory response syndrome (SIRS) of non-infectious origin without acute organ dysfunction Status: Acute Assessment and Plan: She has evidence of a systemic inflammatory response with tachycardia, tachypnea, and leukocytosis [place] to be secondary to acute pancreatitis Continue with close monitoring (3) Transaminitis: Code(s): R74.01 - Elevation of levels of liver transaminase levels Status: Acute Assessment and Plan: Likely due to a combination of factors including chronic alcohol abuse, diffuse hepatic steatosis noted on imaging, and pancreatitis. Increase in total bilirubin today Will evaluate indirect bilirubin levels MRCP should be considered in 1-2 days if no improvement in bilirubin or LFTs (4) Electrolyte abnormality: Code(s): E87.8 - Other disorders of electrolyte and fluid balance, not elsewhere classified Status: Acute Assessment and Plan: Likely multifactorial secondary to acute pancreatitis and alcohol abuse Hypokalemia: Resolved with supplementation. Hyponatremia: Sodium improved with rehydration Hypomagnesemia: Mag is 0.9. Will give 3 g IV magnesium sulfate Hypocalcemia: Mag is down to 4.0 (5.6 corrected). Following magnesium supplementation, 1 g IV Calcium gluconate Repeat BMP and mag following magnesium and calcium supplementation (5) Adynamic ileus: Code(s): K56.0 - Paralytic ileus Status: Acute Assessment and Plan: Related to pancreatitis. Continue bowel rest, IV fluids, and supportive care. (6) Alcohol abuse: Code(s): F10.10 - Alcohol abuse, uncomplicated Status: Acute Assessment and Plan: Within the past couple weeks she has started outpatient therapy for her alcohol abuse and she is currently taking Librium while tapering off of alcohol. Currently drinking less than half a pint of vodka/day. Last drink 24 hours prior to presentation Continue scheduled Librium 10 mg q8h CIWA protocol in place. Scores 5-7 today Valium as needed for CIWA >8 (due to IV ativan shortage) Thiamine and folic acid supplementation. Will need to return to outpatient program on resolution of acute illness Subjective Date/time seen: 09/30/21 11:16 Interval history: Date of service: 09/30/2021 Lalitha Piper is a 36-year-old female with a history of alcohol abuse, depression, anxiety, hepatic steatosis, history of laparoscopic cholecystectomy who is seen in follow-up for acute pancreatitis. She is feeling poorly today. She complains of cramping/bloating abdominal discomfort that she rates as 5/10. She occasionally become short of breath with this pain. She denies nausea, vomiting, fever, or chills. She states she is a bit dizzy after getting Librium. She denies shakiness or tremors. Denies palpitations. Denies hallucinations. She states she has never had alcohol withdrawal symptoms in the past. Her last bowel movement was 1 week ago. She denies any urinary symptoms including dysuria or hematuria. Review of Systems Review of Systems: All systems reviewed & are unremarkable except as noted in HPI and below Exam Narrative: General: Somewhat ill-appearing 36-year-old female, walking
[2021-09-30] MEDS: diazePAM INJ (*CRX) 10 MG/2 ML SYRINGE 5 MG IV PUSH (11:26)
[2021-09-30] MEDS: MAGNESIUM SULFATE 3GM/D5W100ML 3 GM/100 ML BAG IVPB (11:47)
[2021-09-30 12:24] LABS: Glucose Point of Care 155 mg/dl (65-105)
[2021-09-30] MEDS: CALCIUM GLUC 1,000 MG/NS 50 ML 1,000 MG/50 ML BAG 100 MG IVPB (12:48)
[2021-09-30 14:59] LABS: Anion Gap 9 mmol/L (8-16); Blood Urea Nitrogen 12 mg/dL (7-17); Calcium 4.1 mg/dL (8.4-10.2); Carbon Dioxide 17 mmol/L (22-30); Chloride 100 mmol/L (98-107); Estimated CRCL calculation 100 ml/min; Estimated Glomerular Filt Rate > 60; Glucose 127 mg/dL (65-110); Sodium 126 mmol/L (137-145)
[2021-09-30 18:04] LABS: Glucose Point of Care 150 mg/dl (65-105)
[2021-09-30] MEDS: SODIUM CHLORIDE 0.9% IV 1,000 ML 125 ML IV CONT (18:29)
[2021-09-30 22:18] LABS: Calcium 3.9 mg/dL (8.4-10.2); Sodium 125 mmol/L (137-145)
--- NOTE | 2021-09-30 23:23 | ECG_ITS ---
Measurements Intervals Burden Rate: 132 P: 53 LA: 144 QRS: 9 QRSD: 74 T: 15 QT: 327 QTc: 485 Interpretive Statements SINUS TACHYCARDIA POOR R-WAVE PROGRESSION, COMMIT NOT RULE OUT AN OLD ANTERIOR PR LOW VOLTAGE EKG NONSPECIFIC ST T-WAVE CHANGES NO PREVIOUS ECG AVAILABLE FOR COMPARISON Electronically Signed On 10-01-2021 16:28:41 CDT by Shira Carpenter M.D.
--- NOTE | 2021-09-30 23:38 | PC.NURSE ---
Patient refusing Telemetry, patient made aware of the urgent nature of her condition. Provider notified. EKG ordered. 1L bolus currently running.
[2021-09-30] MEDS: SODIUM CHLORIDE 0.9% IV 1,000 ML 999 ML IV CONT (23:40)
--- NOTE | 2021-09-30 23:46 | P.PNCROSS_ITS ---
Event Note Event Note Event Note: The patient's calcium level continues to drop. I spoke with the pharmacist socrates larson and calcium supplements. Since the patient is NPO we have to give her calcium IV therefore after speaking with the pharmacist was recommended that we do calcium chloride however the patient would need to be on telemetry. The patient was connected to telemetry and stated that she had epigastric discomfort and felt bloated. I obtained an EKG which was reading as abnormal. I spoke with the [facility] supervisor and we decided to move the patient to IMU to be monitored closely and to run troponins.
[2021-10-01] VITALS (22 sets, daily range): BP systolic 85–120; BP diastolic 64–103; PULSE 82–149; RESP 16–37; TEMP 36.4–37.2; O2SAT 95–100
[2021-10-01 00:05] LABS: Glucose Point of Care 103 mg/dl (65-105)
[2021-10-01] MEDS: chlordiazePOXIDE (*CRX) 25 MG CAPSULE 50 MG PO ×2 (00:32→05:41)
[2021-10-01] MEDS: diazePAM INJ (*CRX) 10 MG/2 ML SYRINGE IV PUSH ×3 (00:34→11:31)
--- NOTE | 2021-10-01 00:43 | PC.NURSE ---
Patient transferred to IMU per Masha JARA for worsening alcohol per CIWA scores and physical assessment. Dr. Miranda notified and new medication orders entered and executed per APR. Report called to IMU RN @ 0026. furniture polisher and kitchen work supervisor involved in transfer as well.
[2021-10-01] MEDS: HYDROmorphone HCL INJ (*CRX) 1 MG/ML SYR 0.5 MG IV PUSH ×2 (00:57→04:10)
--- NOTE | 2021-10-01 01:03 | PC.NURSE ---
PATIENT TRANSFERRED FROM [address] [place] [address]. PATIENT IS DROWSY, ORIENTED X2, RESTLESS, TREMORS, SOME PHOTOPHOBIA. PATIENT IS COOPERATIVE AT THIS TIME.
[2021-10-01] MEDS: CALCIUM CHLOR 1,000MG/100ML NS 1,000 MG/100 ML BAG 100 MG IVPB (01:11)
--- NOTE | 2021-10-01 01:29 | PC.NURSE ---
PATIENT IS DROWSY, UNCOOPERATIVE. REMOVING TELEMETRY, CALLED NURSE A BITCH FOR PUTTING IT BACK ON. PATIENT WAS INSTRUCTED OF THE IMPORTANCE OF THE TELEMETRY WHILE RECEIVING HER MEDICATION. PATIENT TOLD STAFF TO GET THE FUCK OUT OF HERE.
[2021-10-01] MEDS: THIAMINE 500 MG/NS 100 ML 500 MG/100 ML BAG 200 MG IVPB (02:59)
[2021-10-01 04:15] LABS: Hematocrit 43.6 % (37.0-47.0); Hemoglobin 14.2 g/dL (12.0-15.0); Mean Corpuscular HGB Conc 32.6 g/dl (32-36); Mean Corpuscular Hemoglobin 36.2 pg (26-34); Mean Corpuscular Volume 111.2 fl (80-100); Mean Platelet Volume 10.3 fl (7.4-10.4); Platelet Count Result 206 k/mm3 (150-375); Red Blood Count 3.92 M/mm3 (4.2-5.4); White Blood Count 21.1 K/mm3 (4.5-10.0)
[2021-10-01 04:34] LABS: Alanine Aminotransferase 33 U/L (6-35); Albumin Level 2.6 g/dL (3.5-5.1); Alkaline Phosphatase 68 U/L (38-126); Anion Gap 12 mmol/L (8-16); Aspartate Amino Transferase 159 U/L (14-36); Bilirubin,Total 4.3 mg/dL (0.2-1.3); Blood Urea Nitrogen 20 mg/dL (7-17); Calcium 3.8 mg/dL (8.4-10.2); Carbon Dioxide 14 mmol/L (22-30); Chloride 100 mmol/L (98-107); Estimated CRCL calculation 49 ml/min; Estimated Glomerular Filt Rate 47; Glucose 117 mg/dL (65-110); Magnesium 1.6 mg/dL (1.6-2.3); Phosphorus 2.4 mg/dL (2.5-4.5); Potassium 4.2 mmol/L (3.4-5.0); Sodium 126 mmol/L (137-145)
[2021-10-01 04:44] LABS: Parathyroid Intact 341.1 pg/mL (7.5-53.5)
[2021-10-01 04:50] LABS: Troponin I 0.027 ng/mL (0.000-0.034)
[2021-10-01 05:08] LABS: Vitamin D 25 Hydroxy 30.5 ng/mL
[2021-10-01 05:53] LABS: Glucose Point of Care 138 mg/dl (65-105)
--- NOTE | 2021-10-01 06:19 | PCDIET ---
PATIENT IS CLIMBING OUT OF BED. SHE HAD DIARRHEA ALL OVER HERSELF. SHE TOOK HER PANTS AND UNDERWEAR OFF AND SOMEWHAT CLEANED HERSELF UP. SHE REFUSED HELP FROM US. SHE IS ALERT AND ORIENTED BARELY X 2. SHE WAS HALF NAKED AND WAS TRYING TO GO OUTSIDE TO VAPE. SHE KEPT SAYING THAT WE WERE BEING HATEFUL AND TREATING HER LIKE A PRISONER. SHE WAS CURSING AT STAFF AND THREATENING TO DO HARM. I TRIED TO EXPLAIN HER CONDITION TO HER AND TRIED TO SETTLE HER DOWN. I WAS ABLE TO FINALLY CONVINCE HER TO TAKE HER LIBRIUM AND VALIUM, TO MAKE HER LESS JITTERY AND ANXIOUS. SHE REFUSED A NICOTINE PATCH. A VAPE WAS CONVISCATED FROM HER AND LOCKED IN CLOSET WITH HER NAME ON IT. LAP WELDER AND CHARGE NURSE GARY DUNHAM. DR EPPS IS AWARE OF PATIENTS CURRENT CONDITION AND DID NOT WANT THE PATIENT TO LEAVE IN HER CONDITION.
[2021-10-01 07:52] LABS: Troponin I 0.029 ng/mL (0.000-0.034)
--- NOTE | 2021-10-01 07:53 | WPDGIPROGNO ---
Progress Note: A&P Assessment and Plan (1) Acute pancreatitis: Code(s): K85.90 - Acute pancreatitis without necrosis or infection, unspecified Status: Acute Assessment and Plan: Patient with acute pancreatitis. White count is elevated. She appears to have an ileus with absent bowel sounds and distended abdomen. Plan to place NG tube. Obstructive series will be monitored. We will try it to collect suppository to stimulate bowel motility. Continue NPO status. Continue to follow labs including LFTs and lipase. Because of her decreased level of arousal would try to limit narcotics and sedation at this point. (2) Alcohol abuse: Code(s): F10.10 - Alcohol abuse, uncomplicated Status: Acute Assessment and Plan: Patient somewhat sedated this morning would recommend limiting narcotics and sedatives. Continue to watch for signs of alcohol withdrawal otherwise not yet evident. Subjective Date/time seen: 10/01/21 07:53 Patient is somnolent this morning. Very quiet. Reports no recent bowel movement. Continues to receive pain medicines. Review of Systems Review of Systems: Review of systems noncontributory. Exam Narrative: Patient appears somnolent. Somewhat difficult to arouse this morning quiet. HEENT exam reveals no icterus. Lungs are clear. Heart without murmur. Abdomen is modestly distended. Bowel sounds are absent. No organomegaly present no localized tenderness at this time she did recently received pain stress. Objective Data Vital Signs Vital Signs: Vital Signs - 24 hr 09/30/21 08:00 09/30/21 08:00 09/30/21 12:00 Temperature Pulse Rate Pulse Rate [Left Monitor] Respiratory Rate Blood Pressure 114/74 114/74 Pulse Oximetry Oxygen Delivery Room Air 09/30/21 15:03 09/30/21 16:00 09/30/21 20:00 Temperature 97.0 F L Pulse Rate 132 H Pulse Rate [Left Monitor] 144 H 120 H Respiratory Rate 20 Blood Pressure 107/73 113/74 Pulse Oximetry 97 Oxygen Delivery 09/30/21 20:00 09/30/21 21:10 09/30/21 23:55 Temperature Pulse Rate Pulse Rate [Left Monitor] 132 H Respiratory Rate Blood Pressure Pulse Oximetry 97 Oxygen Delivery Room Air Room Air 09/30/21 23:56 10/01/21 00:05 10/01/21 01:18 Temperature 98.7 F 98.7 F Pulse Rate 128 H 130 H 128 H Pulse Rate [Left Monitor] Respiratory Rate 18 16 Blood Pressure 99/63 L 120/72 Pulse Oximetry 98 98 Oxygen Delivery 10/01/21 01:18 10/01/21 01:18 10/01/21 02:00 Temperature Pulse Rate 128 H 120 H Pulse Rate [Left Monitor] 128 H Respiratory Rate 16 Blood Pressure 85/64 L Pulse Oximetry 98 Oxygen Delivery Room Air 10/01/21 04:00 10/01/21 04:00 10/01/21 04:00 Temperature 98.9 F Pulse Rate 141 H 139 H Pulse Rate [Left Monitor] 130 H Respiratory Rate 20 Blood Pressure 95/74 L 95/74 L Pulse Oximetry 95 Oxygen Delivery 10/01/21 04:00 10/01/21 06:00 Temperature Pulse Rate 139 H 128 H Pulse Rate [Left Monitor] Respiratory Rate 16 Blood Pressure Pulse Oximetry 98 Oxygen Delivery Room Air Intake/Output Intake/Output: Intake & Output 09/28/21 09/29/21 09/30/21 10/01/21 23:59 23:59 23:59 23:59 Intake Total 4520 3170 Output Total 2 Balance 4520 3170 -2 Meds/Results Medications: Active Medications Generic Name Dose Route Start Last Admin Trade Name Freq PRN Reason Stop Dose Admin Chlordiazepoxide HCl 50 mg 10/01/21 00:20 10/01/21 05:41 Chlordiazepoxide (*Crx) 25 Mg Capsule PO 50 mg Q6HR ALIYA Administration Diazepam 10 mg 10/01/21 01:41 10/01/21 05:42 Diazepam Inj (*Crx) 10 Mg/2 Ml Syringe IV PUSH 10 mg Q4H PRN Administration Withdrawal AND CIWA > 8 Enoxaparin Sodium 40 mg 09/30/21 09:00 09/30/21 09:32 Enoxaparin 40 Mg/0.4 Ml Syringe SUB-Q 40 mg DAILY ALIYA Administration Famotidine 20 mg 09/30/21 09:00 09/30/21 20:36 Famotidine 20 Mg/2 M
[2021-10-01 08:24] LABS: Glucose Point of Care 117 mg/dl (65-105)
[2021-10-01 08:29] LABS: Bilirubin Direct 1.4 mg/dL (0-0.3); Bilirubin Indirect 1.8 mg/dL (0-1.1); Bilirubin,Total 4.2 mg/dL (0.2-1.3)
--- NOTE | 2021-10-01 08:30 | P.PNIM_ITS ---
Progress Note: A&P Assessment and Plan (1) Acute pancreatitis: Code(s): K85.90 - Acute pancreatitis without necrosis or infection, unspecified Status: Acute Assessment and Plan: Most likely related to alcohol abuse; she is status post cholecystectomy several years ago and there was no evidence of ductal dilatation on imaging. * GI following and appreciate recommendations. * Lipase trending down. 31,923 to 6711 to 3570 today * Increase IV fluid given worsening BUN/Cr and 5 urine voids in 24 hours. NS 250 ml/hr and bowel rest. * Continue NPO * Analgesics and antiemetics available as needed. * On lovenox for VTE prophylaxis. H/H stable. * Will repeat CT abd/pelvis if no clinical improvement to rule out necrosis or abscess. (2) Systemic inflammatory response syndrome: Code(s): R65.10 - Systemic inflammatory response syndrome (SIRS) of non-infectious origin without acute organ dysfunction Status: Acute Assessment and Plan: On admission: WBC 15, tachycardia, tachypnea, acute pancreatitis on imaging. * [place] to be secondary to acute pancreatitis * WBC 21 today, afebrile. Monitor closely. Consider adding IV abx. (3) Electrolyte abnormality: Code(s): E87.8 - Other disorders of electrolyte and fluid balance, not elsewhere classified Status: Acute Assessment and Plan: Likely multifactorial secondary to acute pancreatitis and alcohol abuse * Hypocalcemia: serum calcium 3.9, albumin 2.5 today. Ionized calcium pending. Patient given 1 g IV Calcium gluconate x 3 doses since 09/30/21, 1 gram IV calcium chloride x1 09/30 @2200. Give stat 2 grams IVPB calcium gluconate, repeat calcium in 2 hours. Mag 1.6 and supplement Magnesium 2 grams IVPB. PTH elevated, Vit D 25-OH 30. Phos 2.9. Monitor tetany. * Hypokalemia: Resolved after supplementation. K 4.2 today. * Hyponatremia: Sodium 126 today. Continue IV fluids. * Hypomagnesemia: Mag is 1.6. Give 2 g IV magnesium sulfate * Monitor chemistry closely. (4) Adynamic ileus: Code(s): K56.0 - Paralytic ileus Status: Acute Assessment and Plan: Related to pancreatitis. * Bowel rest, IV fluids, and supportive care. * NG tube placed per GI. (5) Transaminitis: Code(s): R74.01 - Elevation of levels of liver transaminase levels Status: Acute Assessment and Plan: Likely due to a combination of factors including chronic alcohol abuse, diffuse hepatic steatosis noted on imaging, and pancreatitis. H/O lap ansley 08/2019 * Tbili 4.2; indirect 1.8, direct 1.4, AST 159 * GI following and appreciate recommendations. Will defer need for MRCP to GI. (6) Alcohol abuse: Code(s): F10.10 - Alcohol abuse, uncomplicated Status: Acute Assessment and Plan: Within the past couple weeks she has started outpatient therapy for her alcohol abuse and she is currently taking Librium while tapering off of alcohol. Currently drinking less than half a pint of vodka/day. Last drink 24 hours prior to presentation, per patient, however alcohol level 178 on admission. 10/01/21 - +tachycardia, CIWA 20, patient visibly agitated. Increase Valium 10 mg IV Q2 hours PRN CIWA>8. * Librium scheduled, however, patient may not be able to take d/t NG tube. * CIWA protocol * Seizure precautions. * Continue thiamine and folic acid supplementation. * Will need to return to outpatient program on resolution of acute illness. Discussed Vivitrol injections. (7) Acute kidney injury: Code(s): N17.9 - Acute kidney failure, unspecified St
--- NOTE | 2021-10-01 08:30 | PM.IMPN ---
Progress Note: A&P Assessment and Plan (1) Acute pancreatitis: Code(s): K85.90 - Acute pancreatitis without necrosis or infection, unspecified Status: Acute Assessment and Plan: Most likely related to alcohol abuse; she is status post cholecystectomy several years ago and there was no evidence of ductal dilatation on imaging. GI following and appreciate recommendations. Lipase trending down. 31,923 to 6711 to 3570 today Increase IV fluid given worsening BUN/Cr and 5 urine voids in 24 hours. NS 250 ml/hr and bowel rest. Continue NPO Analgesics and antiemetics available as needed. On lovenox for VTE prophylaxis. H/H stable. Will repeat CT abd/pelvis if no clinical improvement to rule out necrosis or abscess. (2) Systemic inflammatory response syndrome: Code(s): R65.10 - Systemic inflammatory response syndrome (SIRS) of non-infectious origin without acute organ dysfunction Status: Acute Assessment and Plan: On admission: WBC 15, tachycardia, tachypnea, acute pancreatitis on imaging. [place] to be secondary to acute pancreatitis WBC 21 today, afebrile. Monitor closely. Consider adding IV abx. (3) Electrolyte abnormality: Code(s): E87.8 - Other disorders of electrolyte and fluid balance, not elsewhere classified Status: Acute Assessment and Plan: Likely multifactorial secondary to acute pancreatitis and alcohol abuse Hypocalcemia: serum calcium 3.9, albumin 2.5 today. Ionized calcium pending. Patient given 1 g IV Calcium gluconate x 3 doses since 09/30/21, 1 gram IV calcium chloride x1 09/30 @2200. Give stat 2 grams IVPB calcium gluconate, repeat calcium in 2 hours. Mag 1.6 and supplement Magnesium 2 grams IVPB. PTH elevated, Vit D 25-OH 30. Phos 2.9. Monitor tetany. Hypokalemia: Resolved after supplementation. K 4.2 today. Hyponatremia: Sodium 126 today. Continue IV fluids. Hypomagnesemia: Mag is 1.6. Give 2 g IV magnesium sulfate Monitor chemistry closely. (4) Adynamic ileus: Code(s): K56.0 - Paralytic ileus Status: Acute Assessment and Plan: Related to pancreatitis. Bowel rest, IV fluids, and supportive care. NG tube placed per GI. (5) Transaminitis: Code(s): R74.01 - Elevation of levels of liver transaminase levels Status: Acute Assessment and Plan: Likely due to a combination of factors including chronic alcohol abuse, diffuse hepatic steatosis noted on imaging, and pancreatitis. H/O lap ansley 08/2019 Tbili 4.2; indirect 1.8, direct 1.4, AST 159 GI following and appreciate recommendations. Will defer need for MRCP to GI. (6) Alcohol abuse: Code(s): F10.10 - Alcohol abuse, uncomplicated Status: Acute Assessment and Plan: Within the past couple weeks she has started outpatient therapy for her alcohol abuse and she is currently taking Librium while tapering off of alcohol. Currently drinking less than half a pint of vodka/day. Last drink 24 hours prior to presentation, per patient, however alcohol level 178 on admission. 10/01/21 - +tachycardia, CIWA 20, patient visibly agitated. Increase Valium 10 mg IV Q2 hours PRN CIWA>8. Librium scheduled, however, patient may not be able to take d/t NG tube. CIWA protocol Seizure precautions. Continue thiamine and folic acid supplementation. Will need to return to outpatient program on resolution of acute illness. Discussed Vivitrol injections. (7) Acute kidney injury: Code(s): N17.9 - Acute kidney failure, unspecified Status: Acute Assessment and Plan: 2/2 acute pancreatitis, 10/01/21- BUN 20, creatinine 1.3, GFR 47. Continue IV fluids. Insert guillermo for acute I/O monitoring in acutely ill patient. Plan Patient transferred to ICU for closer patient monitoring. Time Spent With Patient Time with patient: Greater than 35 minutes Subjective Date/time seen: 10/01/21 08:30 Patient found sit
[2021-10-01] MEDS: NICOTINE (*PBKC) 7 MG PATCH 1 PATCH TRANSDERM (08:31)
[2021-10-01] MEDS: ENOXAPARIN 40 MG/0.4 ML SYRINGE SUB-Q (08:32)
[2021-10-01] MEDS: SODIUM CHLORIDE 0.9% IV 500 ML IV CONT (08:32)
[2021-10-01] MEDS: FAMOTIDINE 20 MG/2 ML VIAL IV PUSH (08:32)
[2021-10-01] MEDS: diazePAM INJ (*CRX) 10 MG/2 ML SYRINGE 5 MG IV PUSH (08:32)
[2021-10-01 08:38] LABS: Lipase 3570 U/L (23-300)
[2021-10-01] MEDS: SODIUM CHLORIDE 0.9% IV 1,000 ML 250 ML IV CONT (09:24)
[2021-10-01] MEDS: CALCIUM GLUC 2,000 MG/NS 100ML 2,000 MG/100 ML BAG 100 MG IVPB ×3 (09:25→18:53)
[2021-10-01 09:46] LABS: Phosphorus 2.9 mg/dL (2.5-4.5)
[2021-10-01 10:44] LABS: Amphetamine Screen Urine Negative (Negative); Barbiturate Screen Urine Negative (Negative); Benzodiazepines Screen Urine Positive (Negative); Cannabinoid Screen Urine Negative (Negative); Cocaine Screen Urine Negative (Negative); Methadone Screen Urine Negative (Negative); Opiate Screen Urine Positive (Negative); Phencyclidine Screen Urine Negative (Negative)
[2021-10-01] MEDS: MAGNESIUM SULF 2 GM/WATER 50ML 2 GM/50 ML BAG IVPB (11:30)
[2021-10-01 12:19] LABS: Glucose Point of Care 100 mg/dl (65-105)
[2021-10-01] MEDS: FOLIC ACID 1 MG/0.2 ML INJ IV PUSH (12:23)
[2021-10-01 12:31] LABS: Calcium 3.5 mg/dL (8.4-10.2)
[2021-10-01] MEDS: hetaSTARCH 6%/NACL 500 ML 250 ML IV CONT ×2 (12:48→15:02)
--- NOTE | 2021-10-01 13:37 | WPDCNINT ---
Assessment and Plan Assessment and plan (1) Cardiac arrest: Code(s): I46.9 - Cardiac arrest, cause unspecified Status: Acute Assessment and Plan: Patient went into PEA arrest after starting Precedex infusion, brief arrest with ROSC in 3 minutes -patient unresponsive dilated but reactive pupils, following, -could be multifactorial, SIRS secondary to acute pancreatitis but most likely occurred after starting the Precedex infusion -will check troponins, EKG and stat labs (2) Acute respiratory failure: Code(s): J96.00 - Acute respiratory failure, unspecified whether with hypoxia or hypercapnia Status: Acute Assessment and Plan: Acute respiratory failure likely related to PEA arrest -patient was intubated and placed on mechanical ventilation on 10/01/2021 -patient was cyanotic during code blue, bag-mask ventilation was commenced immediately at the time of the code -continue CMV mode of ventilation, peep of 5, 100% FiO2, in O2 sats greater than 92% -chest x-ray post intubation showed airspace opacities in the perihilar regions and lower lung zones consistent with atelectasis versus pneumonia versus pulmonary edema, small left pleural effusion -patient is currently sedated with fentanyl and Versed infusion as she is tachycardic and dyssynchronous with the ventilator (3) Acute pancreatitis: Code(s): K85.90 - Acute pancreatitis without necrosis or infection, unspecified Status: Acute Assessment and Plan: Acute pancreatitis on admission currently elevated lipase which is trending down -patient also has an ileus, NG tube in place -hypocalcemia due to pancreatitis with aggressive calcium replacement -will check ionized calcium -GI following the patient, may require MRCP once able -may repeat CT scan of the chest, abdomen and pelvis (4) Acute kidney injury: Code(s): N17.9 - Acute kidney failure, unspecified Status: Acute Assessment and Plan: Acute kidney injury likely related to SIRs, acute pancreatitis, hypovolemia, third-spacing -decreased urine output, worsening renal function -will add albumin -will check renal ultrasound and urine lytes, CK level and urine eosinophil -consult nephrology -continue IV fluids at 100 mL/hour (they were at 250 mL/hour, chest x-ray shows pulmonary edema) -continue to monitor renal function, electrolytes and urine (5) Alcohol abuse: Code(s): F10.10 - Alcohol abuse, uncomplicated Status: Acute Assessment and Plan: Patient was on Librium which is currently on hold, patient is sedated with fentanyl and Versed at this time -continue folic acid and thiamine (6) Adynamic ileus: Code(s): K56.0 - Paralytic ileus Status: Acute Assessment and Plan: Patient has an ileus, likely related to acute pancreatitis -NG tube to low intermittent suction -GI following the patient (7) Hypocalcemia: Code(s): E83.51 - Hypocalcemia Status: Acute Assessment and Plan: Hypocalcemia related to acute severe pancreatitis -will replace calcium (corrected calcium is 4.90) -ionized calcium pending Plan CT brain, chest, abdomen and pelvis Sodium bicarb infusion Renal ultrasound Nephrology consult Calcium gluconate Repeat lactic acid Additional Plan Discussed with patient's mother and updated with patient's condition and plan of care, answered all questions Code status: Full Code Critical care time spent: 55 minutes This dictation may have been done utilizing a voice recognition system. Attempts have been made to correct errors. However, there may be uncorrected grammatical, spelling, and recognition errors present. Due to a high probability of clinically significant, life threatening deterioration, the patient required my highest level of preparedness to intervene emergently and I personally spent this critical care time directly and personally managing the patient. This critical care time included louie
--- NOTE | 2021-10-01 13:37 | WPDPROCEDUR ---
Procedures Intubation Intubation Date: 10/01/21 Intubation Time: 13:05 Consent: Emergent intubation due to code blue Sedative: none Laryngoscope: fiber optic video scope Assist device used: fiber optic device ET tube size: 7.5 Tube secured depth (cm): 23 Tube secured location: lips Tube placement confirmation: visualized tube passing through cords, equal breath sounds bilaterally, no breath sounds over epigastrium and confirmation by capnometry Patient tolerated procedure: well Intubation complications: none
--- NOTE | 2021-10-01 14:03 | PDCODEBLUE ---
Code Blue Note Code Blue Note Time Arrived at Code Blue: 1:00 p.m. Initial Rhythm on Arrival: PEA Airway Management: Pt intubated during resuscitation Chest Compressions: Initiated upon arrival Result of Code Blue: In ICU Cardiac Rhythm Post Code: Sinus tachycardia at 1:03 p.m. Code Blue Summary: Patient was transferred to the ICU from intermediate Unit for Precedex infusion. Once Precedex was started, patient became bradycardic, hypotensive, went PEA arrest. CPR commenced immediately, patient received 1 round of epinephrine, 1 bicarb, 1 D50 and 1 atropine with ROSC at 1:03 p.m. -patient was intubated at 1:05 p.m. -patient is unresponsive, pupils are dilated and reactive -updated patient's mother in the conference room
[2021-10-01] MEDS: FENTANYL 2,500MCG/NS250ML(*CRX 2,500 MCG/250 ML BAG IV CONT (14:13)
[2021-10-01] MEDS: MIDAZOLAM 100MG/NS 100ML(*CRX) 100 MG/100 ML BAG IV CONT (14:14)
[2021-10-01 14:34] LABS: INR 2.1; Partial Thromboplastin Time 39.3 SECONDS (22.3-36.8); Prothrombin Time 22.9 Seconds (11.1-14.7)
[2021-10-01 14:47] LABS: Lactic Acid Reflex 5.6 mmol/L (0.7-2.0)
[2021-10-01 14:52] LABS: Alanine Aminotransferase 39 U/L (6-35); Albumin Level 1.9 g/dL (3.5-5.1); Alkaline Phosphatase 99 U/L (38-126); Anion Gap 16 mmol/L (8-16); Aspartate Amino Transferase 187 U/L (14-36); Bilirubin,Total 3.8 mg/dL (0.2-1.3); Blood Urea Nitrogen 25 mg/dL (7-17); Calcium 3.3 mg/dL (8.4-10.2); Carbon Dioxide 10 mmol/L (22-30); Chloride 101 mmol/L (98-107); Creatine Kinase 1480 U/L (30-135); Estimated CRCL calculation 29 ml/min; Estimated Glomerular Filt Rate 25; Glucose 158 mg/dL (65-110); Magnesium 2.6 mg/dL (1.6-2.3); Phosphorus 5.7 mg/dL (2.5-4.5); Potassium 4.1 mmol/L (3.4-5.0); Sodium 127 mmol/L (137-145); Troponin I 0.039 ng/mL (0.000-0.034)
[2021-10-01 14:57] LABS: Alveolar/Arterial O2 Gradient 601.3 mmHg; Fractional Inspired Oxygen 100 %; HCO3 ABG 8.6 mEq/l (22.0-26.0); Oxygen Content ABG 16.5 %vol (16.0-22.0); Oxygen Saturation ABG 95.8 % (95.0-100.0); Oxyhemoglobin 95.1 % THb (90.0-100.0); PO2 ABG 90.9 mmHg (80.0-100.0); PO2 FiO2 Ratio Arterial Blood 0.91 %; Total Hemoglobin 12.3 g/dL (12.0-18.0)
[2021-10-01 15:00] LABS: PCO2 ABG 20.8 mmHg (35.0-45.0); pH ABG 7.232 (7.350-7.450)
[2021-10-01 15:01] LABS: Arterial Blood Gas PEEP 5 cmH2O; Arterial Blood Gas Tidal Volume 400 ml; Arterial Blood Gas Vent Mode CMV; Arterial Blood Gas Ventilator rate 20 /MIN; Device VENTILATOR; Site Drawn LEFT BRACHIAL
[2021-10-01] MEDS: SODIUM BICARBONATE 8.4% 50 MEQ/50 ML SYRINGE IV PUSH (15:13)
[2021-10-01 15:29] LABS: D Dimer > 20.00 ug/mL (<0.48)
[2021-10-01] MEDS: SODIUM BICARBONATE 8.4% 150 MEQ in DEXTROSE 5% 1,000 ML 950 ML 100 MEQ IV CONT (15:31)
[2021-10-01 15:59] LABS: Hematocrit 34.3 % (37.0-47.0); Hemoglobin 10.8 g/dL (12.0-15.0); Mean Corpuscular HGB Conc 31.5 g/dl (32-36); Mean Corpuscular Hemoglobin 36.4 pg (26-34); Mean Corpuscular Volume 115.5 fl (80-100); Mean Platelet Volume 10.7 fl (7.4-10.4); Platelet Count Result 150 k/mm3 (150-375); Red Blood Count 2.97 M/mm3 (4.2-5.4); Red Cell Distribution Width 12.3 % (11.5-14.5); White Blood Count 15.4 K/mm3 (4.5-10.0)
[2021-10-01 16:10] LABS: Ammonia 10 umol/L (9-30)
[2021-10-01 16:11] LABS: Lactic Acid Reflex 3.5 mmol/L (0.7-2.0)
[2021-10-01 16:21] LABS: Creatine Kinase 2541 U/L (30-135)
[2021-10-01 16:57] LABS: Lipase 2810 U/L (23-300)
[2021-10-01 17:05] LABS: Band Neutrophils Percent 25 % (0-6); Lymphocytes Absolute Manual 1.38 K/mm3 (1.1-4.5); Metamyelocytes Percent 2 %; Monocytes Absolute Manual 0.77 K/mm3 (0.1-0.90); Monocytes Percent Manual 5 % (3-9); Neutrophils Absolute Manual 12.93 K/mm3 (1.7-7.2); Neutrophils Percent Manual 59 % (46-73); Platelet Estimate Adequate (Adequate); Total Cells Counted 100
[2021-10-01 17:19] LABS: Reflex Lactic Acid Yes or No Add Lactic
[2021-10-01 18:29] LABS: Lactic Acid 1.8 mmol/L (0.7-2.0)
[2021-10-01 18:47] LABS: Troponin I 0.055 ng/mL (0.000-0.034)
[2021-10-01 18:51] LABS: Glucose Point of Care 152 mg/dl (65-105)
[2021-10-01] MEDS: ALBUMIN HUMAN 25% 25 GM/100 ML 100 ML IVPB (18:56)
[2021-10-01 19:57] LABS: Appearance Urine Slightly Cloudy (Clear); Bilirubin Urine 3+ (Negative); Blood Urine 3+ (Negative); Color Urine Yellow (Yellow); Glucose Urine UA Trace mg/dL (Negative); Ketones Urine Trace mg/dL (Negative); Leukocyte Esterase Ur Negative LEU/UL (Negative); Nitrate Urine Negative (Negative); Protein Urine 2+ mg/dL (Negative); Specific Grav Ur >= 1.030 (1.001-1.035)
[2021-10-01 20:04] LABS: Budding Yeast Urine Present /hpf; Mucus Urine Few /lpf; RBC Urine 21-50 /hpf (0-2); Squamous Epithelial Cell Urine Many /hpf (Few); WBC Urine 21-30 /hpf
[2021-10-01 20:06] LABS: Add Urine Microscopic? YES
[2021-10-01 20:26] LABS: Eosinophil Urine None Seen % (None Seen)
[2021-10-01 20:34] LABS: Creatinine Urine 169.3 mg/dL
[2021-10-01 20:36] LABS: Potassium Urine Random 48.2 meq/L; Sodium Urine Random 16 meq/L
[2021-10-01] MEDS: MINERAL OIL/WHITE PETROLATUM OINTMENT 1 APPLIC EACH EYE (20:37)
[2021-10-02] VITALS (19 sets, daily range): BP systolic 97–125; BP diastolic 59–69; PULSE 101–124; RESP 16–20; TEMP 36.6–37.1; O2SAT 95–100; BMI 26.9
[2021-10-02] MEDS: ALBUMIN HUMAN 25% 25 GM/100 ML 100 ML IVPB ×4 (00:14→17:06)
[2021-10-02] MEDS: CENTRAL LINE FLUSH 10 ML IV PUSH ×3 (00:16→14:18)
[2021-10-02 00:24] LABS: Glucose Point of Care 193 mg/dl (65-105)
[2021-10-02] MEDS: MIDAZOLAM 100MG/NS 100ML(*CRX) 100 MG/100 ML BAG 8 MG IV CONT ×2 (01:54→14:11)
[2021-10-02] MEDS: SODIUM BICARBONATE 8.4% 150 MEQ in DEXTROSE 5% 1,000 ML 950 ML 100 MEQ IV CONT (01:56)
[2021-10-02 05:09] LABS: Hematocrit 28.5 % (37.0-47.0); Hemoglobin 9.2 g/dL (12.0-15.0); Immature Platelet Fraction Pct 8.3 % (0.9-11.2); Mean Corpuscular HGB Conc 32.3 g/dl (32-36); Mean Corpuscular Hemoglobin 36.1 pg (26-34); Mean Corpuscular Volume 111.8 fl (80-100); Mean Platelet Volume 11.3 fl (7.4-10.4); Platelet Count Result 110 k/mm3 (150-375); Red Blood Count 2.55 M/mm3 (4.2-5.4); Red Cell Distribution Width 12.6 % (11.5-14.5); White Blood Count 7.9 K/mm3 (4.5-10.0)
[2021-10-02 05:17] LABS: Lactic Acid Reflex 1.5 mmol/L (0.7-2.0)
[2021-10-02 05:30] LABS: INR 1.8; Prothrombin Time 20.3 Seconds (11.1-14.7)
[2021-10-02 05:31] LABS: Partial Thromboplastin Time 38.7 SECONDS (22.3-36.8)
[2021-10-02 05:32] LABS: Band Neutrophils Percent 10 % (0-6); Lymphocytes Absolute Manual 0.47 K/mm3 (1.1-4.5); Monocytes Absolute Manual 0.63 K/mm3 (0.1-0.90); Monocytes Percent Manual 8 % (3-9); Neutrophils Absolute Manual 6.79 K/mm3 (1.7-7.2); Neutrophils Percent Manual 76 % (46-73); Total Cells Counted 100
[2021-10-02 05:33] LABS: Anisocytosis 1+ (NORMAL); Platelet Estimate Decreased (Adequate)
[2021-10-02 05:35] LABS: Alveolar/Arterial O2 Gradient 191.3 mmHg; Carboxyhemoglobin 0.2 % THb (0-2.0); Fractional Inspired Oxygen 45 %; HCO3 ABG 16.1 mEq/l (22.0-26.0); Methemoglobin ABG 0.6 %THb (0-1.5); Oxygen Content ABG 14.1 %vol (16.0-22.0); Oxygen Saturation ABG 97.4 % (95.0-100.0); Oxyhemoglobin 95.7 % THb (90.0-100.0); PCO2 ABG 28.3 mmHg (35.0-45.0); PO2 ABG 97.4 mmHg (80.0-100.0); PO2 FiO2 Ratio Arterial Blood 2.16 %; Reduced Hemoglobin 3.5 %THb (0-5.0); Total Hemoglobin 10.4 g/dL (12.0-18.0); pH ABG 7.372 (7.350-7.450)
[2021-10-02 05:36] LABS: Arterial Blood Gas Ventilator rate 20 /MIN; Device VENTILATOR; Modified Allen's Test Pass; Site Drawn RIGHT RADIAL
[2021-10-02 05:37] LABS: Arterial Blood Gas PEEP 8 cmH2O; Arterial Blood Gas Tidal Volume 400 ml; Arterial Blood Gas Vent Mode CMV
[2021-10-02 05:45] LABS: Alanine Aminotransferase 25 U/L (6-35); Albumin Level 2.3 g/dL (3.5-5.1); Alkaline Phosphatase 63 U/L (38-126); Anion Gap 10 mmol/L (8-16); Aspartate Amino Transferase 168 U/L (14-36); Bilirubin,Total 3.7 mg/dL (0.2-1.3); Blood Urea Nitrogen 33 mg/dL (7-17); Calcium 2.2 mg/dL (8.4-10.2); Carbon Dioxide 17 mmol/L (22-30); Chloride 101 mmol/L (98-107); Estimated CRCL calculation 31 ml/min; Estimated Glomerular Filt Rate 27; Glucose 172 mg/dL (65-110); Lipase 1108 U/L (23-300); Magnesium 1.7 mg/dL (1.6-2.3); Phosphorus 2.5 mg/dL (2.5-4.5); Potassium 3.4 mmol/L (3.4-5.0); Sodium 128 mmol/L (137-145)
[2021-10-02 06:00] LABS: Creatine Kinase 4248 U/L (30-135)
[2021-10-02] MEDS: FENTANYL 2,500MCG/NS250ML(*CRX 2,500 MCG/250 ML BAG 15 MCG IV CONT (06:11)
--- NOTE | 2021-10-02 07:40 | WPDGIPROGNO ---
Progress Note: A&P Assessment and Plan (1) Cardiac arrest: Code(s): I46.9 - Cardiac arrest, cause unspecified Status: Acute Assessment and Plan: patient is status post CP arrest yesterday now on ventilator. ICU management to continue. (2) Acute kidney injury: Code(s): N17.9 - Acute kidney failure, unspecified Status: Acute Assessment and Plan: Patient with modest renal insufficiency after cardiopulmonary arrest. Could be related to volume contraction associated with pancreatitis. Continue IV fluid resuscitation monitor renal function. CK level elevated raising question rhabdomyolysis is a contributing factor. (3) Acute respiratory failure: Code(s): J96.00 - Acute respiratory failure, unspecified whether with hypoxia or hypercapnia Status: Acute Assessment and Plan: Patient now on ventilator support. (4) Alcohol abuse: Code(s): F10.10 - Alcohol abuse, uncomplicated Status: Acute Assessment and Plan: Ongoing going alcohol abuse prior to admission the hospital. (5) Acute pancreatitis: Code(s): K85.90 - Acute pancreatitis without necrosis or infection, unspecified Status: Acute Assessment and Plan: Patient admitted to the hospital with acute pancreatitis from alcohol use. Lipase gradually decreasing. Follow-up see CT scan reveals pancreatitis slowly improving. Continue supportive care. Subjective Date/time seen: 10/02/21 07:40 Patient now in the ICU. Had cardiopulmonary arrest yesterday now on the ventilator unable to add any history. Review of Systems Review of Systems: ROS unobtainable: Yes unobtainable due to endotracheal tube Exam Narrative: Patient on the ventilator. Vital signs stable with support. HEENT exam reveals No obvious icterus. NG tube in place. Lungs reveal few rhonchi. Heart without murmur. Abdomen with modest distention. Absent bowel sounds. Objective Data Vital Signs Vital Signs: Vital Signs - 24 hr 10/01/21 08:00 10/01/21 08:00 10/01/21 08:00 Temperature 97.7 F Pulse Rate 139 H 132 H Pulse Rate [Left Monitor] Respiratory Rate 22 H Blood Pressure 117/82 Pulse Oximetry 100 Oxygen Delivery Room Air Fraction of Inspired Oxygen 10/01/21 12:00 10/01/21 12:00 10/01/21 10:00 Temperature Pulse Rate 130 H 122 H Pulse Rate [Left Monitor] Respiratory Rate Blood Pressure Pulse Oximetry Oxygen Delivery Room Air Fraction of Inspired Oxygen 10/01/21 13:06 10/01/21 14:13 10/01/21 14:14 Temperature Pulse Rate 140 H 146 H 146 H Pulse Rate [Left Monitor] Respiratory Rate 37 H 37 H Blood Pressure Pulse Oximetry 99 Oxygen Delivery Mechanical Ventilation Fraction of Inspired Oxygen 100 10/01/21 14:29 10/01/21 14:30 10/01/21 16:44 Temperature Pulse Rate 149 H 149 H 129 H Pulse Rate [Left Monitor] Respiratory Rate 33 H 33 H Blood Pressure Pulse Oximetry 97 Oxygen Delivery Mechanical Ventilation Fraction of Inspired Oxygen 80 10/01/21 12:00 10/01/21 14:00 10/01/21 16:00 Temperature Pulse Rate 110 H 82 Pulse Rate [Left Monitor] 128 H Respiratory Rate 23 H Blood Pressure 116/103 H Pulse Oximetry 100 Oxygen Delivery Fraction of Inspired Oxygen 10/01/21 16:00 10/01/21 16:00 10/01/21 16:00 Temperature 98.4 F Pulse Rate 131 H 89 131 H Pulse Rate [Left Monitor] Respiratory Rate 18 18 Blood Pressure 108/75 Pulse Oximetry 100 100 Oxygen Delivery Mechanical Ventilation Fraction of Inspired Oxygen 10/01/21 18:00 10/01/21 15:00 10/01/21 15:00 Temperature Pulse Rate 122 H 140 H 140 H Pulse Rate [Left Monitor] Respiratory Rate 33 H 33 H Blood Pressure Pulse Oximetry Oxygen Delivery Fraction of Inspired Oxygen 10/01/21 20:00 10/01/21 20:00 10/01/21 20:00 Temperature Pulse Rate 122 H 122 H Pulse Rate [Left Monitor] 122 H Res
[2021-10-02] MEDS: ENOXAPARIN 40 MG/0.4 ML SYRINGE SUB-Q (08:37)
[2021-10-02] MEDS: MINERAL OIL/WHITE PETROLATUM OINTMENT 1 APPLIC EACH EYE (08:37)
[2021-10-02] MEDS: FOLIC ACID 1 MG/0.2 ML INJ IV PUSH (08:41)
[2021-10-02] MEDS: NICOTINE (*PBKC) 7 MG PATCH 1 PATCH TRANSDERM (08:41)
[2021-10-02] MEDS: THIAMINE HCL 200 MG/2 ML VIAL 100 MG IV PUSH (08:41)
[2021-10-02] MEDS: FAMOTIDINE 20 MG/2 ML VIAL IV PUSH (08:42)
[2021-10-02 09:43] LABS: Triglycerides 193 mg/dL (<150)
[2021-10-02] MEDS: MAGNESIUM SULF 2 GM/WATER 50ML 2 GM/50 ML BAG IVPB (10:17)
[2021-10-02] MEDS: CALCIUM CHLOR 1,000MG/100ML NS 1,000 MG/100 ML BAG 100 MG IVPB ×4 (10:32→17:05)
[2021-10-02] MEDS: PANTOPRAZOLE SODIUM IV 40 MG VIAL IV PUSH (11:42)
--- NOTE | 2021-10-02 11:46 | WPDINTPN ---
Progress Note: A&P Assessment and Plan (1) Cardiac arrest: Code(s): I46.9 - Cardiac arrest, cause unspecified Status: Acute Assessment and Plan: Patient went into PEA arrest after starting Precedex infusion, brief arrest with ROSC in 3 minutes -patient intubated and sedated -likely multifactorial, SIRS, electrolyte and metabolic abnormalities, acidosis secondary to acute pancreatitis which could have been exacerbated by Precedex infusion Mildly Elevated troponins Reviewed EKG Check echocardiogram if patient does not transfer -see below (2) Acute respiratory failure: Code(s): J96.00 - Acute respiratory failure, unspecified whether with hypoxia or hypercapnia Status: Acute Assessment and Plan: Acute respiratory failure likely related to PEA arrest -patient was intubated and placed on mechanical ventilation on 10/01/2021 -patient was cyanotic during code blue, bag-mask ventilation was commenced immediately at the time of the code -continue CMV mode of ventilation, peep of 8, 40 % FiO2, in O2 sats greater than 92% -chest x-ray reviewed -ABG reviewed -patient is currently sedated with fentanyl and Versed infusion as she is tachycardic and dyssynchronous with the ventilator (3) Acute pancreatitis: Code(s): K85.90 - Acute pancreatitis without necrosis or infection, unspecified Status: Acute Assessment and Plan: Acute pancreatitis on admission currently elevated lipase which is trending down -triglycerides 193 -patient also has an ileus, NG tube in place -NPO -hypocalcemia due to pancreatitis with aggressive calcium replacement -GI following the patient, general surgery consulted 10/01 CT scan of the chest, abdomen and pelvis Nondisplaced fractures of the anterior right fifth and sixth ribs. New bilateral dependent and lower lobe atelectasis/consolidation. New moderate bilateral pleural effusions. Increased pancreatic edema and peripancreatic inflammatory change. Possible upper abdominal mesenteric hematoma. Increased, now moderate abdominopelvic ascites. Hyperdensity in areas of abdominopelvic fluid may reflect proteinaceous or hemorrhagic content. Small infectious focus versus infarct in the right kidney midpole. (4) Acute kidney injury: Code(s): N17.9 - Acute kidney failure, unspecified Status: Acute Assessment and Plan: Acute kidney injury likely related to SIRs, acute pancreatitis, hypovolemia, rhabdomyolysis, third-spacing and possible abdominal compartment syndrome -decreased urine output, worsening renal function -continue albumin -no hydronephrosis on renal ultrasound -prerenal picture as per urine lytes -consult nephrology -hold IV fluids with bicarb until calcium is replaced and then restart -monitor CK level -continue to monitor renal function, electrolytes and urine (5) Alcohol abuse: Code(s): F10.10 - Alcohol abuse, uncomplicated Status: Acute Assessment and Plan: Patient was on Librium which is currently on hold, patient is sedated with fentanyl and Versed at this time -continue folic acid and thiamine (6) Adynamic ileus: Code(s): K56.0 - Paralytic ileus Status: Acute Assessment and Plan: Patient has an ileus, likely related to acute pancreatitis -NG tube to low intermittent suction -GI following the patient (7) Hypocalcemia: Code(s): E83.51 - Hypocalcemia Status: Acute Assessment and Plan: Hypocalcemia related to acute severe pancreatitis and IV fluids with bicarb -hold IV fluids with bicarb at this time until calcium is in place -2 g of calcium chloride is ordered. Recheck BMP post replacement -ionized calcium is a send out test at our hospital and is hence not very useful (8) Abdominal compartment syndrome: Code(s): T79.A3XA - Traumatic compartment syndrome of abdomen, initial encounter Status: Acute Assessment and Plan: On exam patient's abdomen is distended and firm. Abd
[2021-10-02 11:47] LABS: Glucose Point of Care 140 mg/dl (65-105)
--- NOTE | 2021-10-02 11:58 | PCFNICU ---
ICU Rounding Note: Pt current nutrition is NPO Last recorded weight is 73.4 kg. Bowel Motility:+Bm reported 10/02 Labs Reviewed:Lipase 1108, BUN 33, GFR 27, Na 128, HCt 28.5,Hgb 9.2, TG 193 Meds Noted:Folic Acid, Thiamine, Versed, Fentanyl, Lovenox, Protonix Skin: WNL Additional Notes: Patient current with mechanical vent. No plans for tube feedings today. RD will continue to monitor daily in ICU rounds.
--- NOTE | 2021-10-02 12:08 | P.CONNP_ITS ---
Assessment and Plan Assessment and plan (1) Acute kidney injury: Code(s): N17.9 - Acute kidney failure, unspecified Status: Acute Assessment and Plan: * multifactorial etiology: * SIRS * acute pancreatitis * hypovolemia * third-spacing * rhabdomyolysis * cardiac arrest * possible abdominal compartment syndrome * evaluation to date noted: * urine electrolytes prerenal * CPK mildly elevated * renal ultrasound w/o osbtruction * elevated bladder pressure noted (abdominal compartment syndrome?) * minimize IVFs * agree with efforts to decrease bladder pressures (paracentesis, abdominal drain, ?surgery) * remains at high risk for [employer]IST/dialysis * follow repeat labs annd UOP (2) Cardiac arrest: Code(s): I46.9 - Cardiac arrest, cause unspecified Status: Acute Assessment and Plan: * etiology? * SIRS and pancreatitis * drug reaction to precedex(?) * follow telemetry/EKG and troponins * follow hemodynamics (3) Acute respiratory failure: Code(s): J96.00 - Acute respiratory failure, unspecified whether with hypoxia or hypercapnia Status: Acute Assessment and Plan: * secondary to PEA arrest * continue ventilator support (4) Acute pancreatitis: Code(s): K85.90 - Acute pancreatitis without necrosis or infection, unspecified Status: Acute Assessment and Plan: * as evidence by imaging on admission as well as elevated lipase * likely cause of hypocalcemia -- continue aggressive repletion * continue supportive therapy (5) Adynamic ileus: Code(s): K56.0 - Paralytic ileus Status: Acute Assessment and Plan: * as noted by recent imaging * secondary to pancreatitis * NGT in place - low intermittent suction * Gastroenterology following (6) Hypocalcemia: Code(s): E83.51 - Hypocalcemia Status: Acute Assessment and Plan: * related to acute severe pancreatitis * replace as needed * follow ionized calcium levels Long and extensive discussion (> 20 minutes) with patient's mother at bedside; she is aware of her daughter's critical illness as well as the possibility that her renal function may continue to decline and she may require AUT[employer]IVE [employer]S [employer]IST/dialysis as well. Will continue to follow. History of Present Illness Reason for Consult Consult date: 10/02/21 Reason for consult: acute renal failure Chief Complaint Chief complaint: acute pancreatitis,hypokalemia History of Present Illness Narrative: All the information I have obtained is from review of the electronic medical record, discussion with Dr. Aditi caceres yesterday, and discussion with the patient's mother at bedside as the patient is unable to provide any history as she is currently intubated and sedated. The patient is a 36-year-old female with a past medical history as outlined below who presented to [facility] Emergency room several days ago with complaints of abdominal pain. The abdominal pain apparently started about 24 hours prior to admission, was localized to the epigastric area, rated 10/10 in severity, and apparently was of sudden onset and constant since it began. Subsequent evaluation emergency room demonstrated the [place] to [place] [address], elevated liver function tests and a mildly elevated total bilirubin, and a lipase of greater than 30,000 with an alcohol level of 178. Subsequent CT scan of the abdomen pelvis demonstrated acute pancreatitis with suggestions of an ad
--- NOTE | 2021-10-02 12:08 | PM.CNNEP ---
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 SIRS and pancreatitis drug reaction to precedex(?) follow telemetry/EKG and troponins follow hemodynamics (3) Acute respiratory failure: Code(s): J96.00 - Acute respiratory failure, unspecified whether with hypoxia or hypercapnia Status: Acute Assessment and Plan: secondary to PEA arrest continue ventilator support (4) Acute pancreatitis: Code(s): K85.90 - Acute pancreatitis without necrosis or infection, unspecified Status: Acute Assessment and Plan: as evidence by imaging on admission as well as elevated lipase likely cause of hypocalcemia -- continue aggressive repletion continue supportive therapy (5) Adynamic ileus: Code(s): K56.0 - Paralytic ileus Status: Acute Assessment and Plan: as noted by recent imaging secondary to pancreatitis NGT in place - low intermittent suction Gastroenterology following (6) Hypocalcemia: Code(s): E83.51 - Hypocalcemia Status: Acute Assessment and Plan: related to acute severe pancreatitis replace as needed follow ionized calcium levels Long and extensive discussion (> 20 minutes) with patient's mother at bedside; she is aware of her daughter's critical illness as well as the possibility that her renal function may continue to decline and she may require [employer] CLASS [employer] EDUCATION TEACHER/dialysis as well. Will continue to follow. History of Present Illness Reason for Consult Consult date: 10/02/21 Reason for consult: acute renal failure Chief Complaint Chief complaint: acute pancreatitis,hypokalemia History of Present Illness Narrative: All the information I have obtained is from review of the electronic medical record, discussion with Dr. Aditi caceres yesterday, and discussion with the patient's mother at bedside as the patient is unable to provide any history as she is currently intubated and sedated. The patient is a 36-year-old female with a past medical history as outlined below who presented to [facility] Emergency room several days ago with complaints of abdominal pain. The abdominal pain apparently started about 24 hours prior to admission, was localized to the epigastric area, rated 10/10 in severity, and apparently was of sudden onset and constant since it began. Subsequent evaluation emergency room demonstrated the [place] to [place] [address], elevated liver function tests and a mildly elevated total bilirubin, and a lipase of greater than 30,000 with an alcohol level of 178. Subsequent CT scan of the abdomen pelvis demonstrated acute pancreatitis with suggestions of an adynamic ileus and hepatics day a ptosis. Further history was noted that the patient has been drinking half a pt of vodka daily up until her presentation to the hospital. The patient was subsequently admitted to the hospital for acute pancreatitis. During her hospital stay, she apparently went in to alcohol withdrawal with symptoms of somnolence, tremors, and fluctuating mental status. She was noted to have issues and problems with significant hypocalcemia requiring aggr
[2021-10-02 12:53] LABS: Hematocrit 25.1 % (37.0-47.0); Hemoglobin 8.2 g/dL (12.0-15.0)
[2021-10-02 13:22] LABS: Anion Gap 11 mmol/L (8-16); Blood Urea Nitrogen 35 mg/dL (7-17); Calcium 3.7 mg/dL (8.4-10.2); Carbon Dioxide 17 mmol/L (22-30); Chloride 98 mmol/L (98-107); Estimated CRCL calculation 26 ml/min; Estimated Glomerular Filt Rate 22; Glucose 122 mg/dL (65-110); Magnesium 2.2 mg/dL (1.6-2.3); Potassium 3.1 mmol/L (3.4-5.0); Sodium 126 mmol/L (137-145)
--- NOTE | 2021-10-02 14:03 | P.PNIM_ITS ---
Progress Note: A&P Assessment and Plan (1) Cardiac arrest: Code(s): I46.9 - Cardiac arrest, cause unspecified Status: Acute Assessment and Plan: Patient went into PEA arrest after starting Precedex infusion, brief arrest with ROSC in 3 minutes -patient intubated and sedated -likely multifactorial, SIRS, electrolyte and metabolic abnormalities, acidosis secondary to acute pancreatitis which could have been exacerbated by Precedex infusion Mildly Elevated troponins Reviewed EKG Check echocardiogram if patient does not transfer -see below (2) Acute respiratory failure: Code(s): J96.00 - Acute respiratory failure, unspecified whether with hypoxia or hypercapnia Status: Acute Assessment and Plan: Acute respiratory failure likely related to PEA arrest -patient was intubated and placed on mechanical ventilation on 10/01/2021 -patient was cyanotic during code blue, bag-mask ventilation was commenced immediately at the time of the code -continue CMV mode of ventilation, peep of 8, 40 % FiO2, in O2 sats greater than 92% -chest x-ray reviewed -ABG reviewed -patient is currently sedated with fentanyl and Versed infusion as she is tachycardic and dyssynchronous with the ventilator (3) Acute pancreatitis: Code(s): K85.90 - Acute pancreatitis without necrosis or infection, unspecified Status: Acute Assessment and Plan: Acute pancreatitis on admission currently elevated lipase which is trending down -triglycerides 193 -patient also has an ileus, NG tube in place -NPO -hypocalcemia due to pancreatitis with aggressive calcium replacement -GI following the patient, general surgery consulted 10/01 CT scan of the chest, abdomen and pelvis Nondisplaced fractures of the anterior right fifth and sixth ribs. New bilateral dependent and lower lobe atelectasis/consolidation. New moderate bilateral pleural effusions. Increased pancreatic edema and peripancreatic inflammatory change. Possible upper abdominal mesenteric hematoma. Increased, now moderate abdominopelvic ascites. Hyperdensity in areas of abdominopelvic fluid may reflect proteinaceous or hemorrhagic content. Small infectious focus versus infarct in the right kidney midpole. (4) Acute kidney injury: Code(s): N17.9 - Acute kidney failure, unspecified Status: Acute Assessment and Plan: Acute kidney injury likely related to SIRs, acute pancreatitis, hypovolemia, rhabdomyolysis, third-spacing and possible abdominal compartment syndrome -decreased urine output, worsening renal function -continue albumin -no hydronephrosis on renal ultrasound -prerenal picture as per urine lytes -consult nephrology -hold IV fluids with bicarb until calcium is replaced and then restart -monitor CK level -continue to monitor renal function, electrolytes and urine (5) Alcohol abuse: Code(s): F10.10 - Alcohol abuse, uncomplicated Status: Acute Assessment and Plan: Patient was on Librium which is currently on hold, patient is sedated with fentanyl and Versed at this time -continue folic acid and thiamine (6) Adynamic ileus: Code(s): K56.0 - Paralytic ileus Status: Acute Assessment and Plan: Patient has an ileus, likely related to acute pancreatitis -NG tube to low intermittent suction -GI following the patient (7) Hypocalcemia: Code(s): E83.51 - Hypocalcemia Status: Acute Assessment and Plan: Hypocalcemia related to acute severe pancreatitis and IV fluids with bicarb -hold IV fluids with bicarb at this time until calcium is in place -2 g of calcium chloride is
[2021-10-02] MEDS: KCL 40 MEQ/WATER 100 ML 100 ML 25 ML IVPB (14:11)
[2021-10-02] MEDS: LACTATED RINGERS 1,000 ML 100 ML IV CONT (14:15)
--- NOTE | 2021-10-02 15:19 | PM.CNGS ---
Assessment and Plan Assessment and plan (1) Abdominal compartment syndrome, nontraumatic: Code(s): M79.A3 - Nontraumatic compartment syndrome of abdomen Status: Acute Assessment and Plan: This is the reason for our consultation. The patient has acute alcoholic pancreatitis. She has a firm, distended abdomen on exam. Her intra-abdominal pressure was measured today at 27 mmHg. With her IAP > 25 and new organ dysfunction (TERESA), this would qualify her for abdominal compartment syndrome. I have discussed the case with Dr. Gipson. We would recommend transfer to a tertiary care facility for further management and have discussed this with the Outbound Call Center Representative. While awaiting bed placement, we will proceed with a paracentesis at the bedside by the Radiologist for percutaneous abdominal decompression. We have discussed this with Dr. Zamorano, who will try to leave a drain in place if the ascitic fluid is thin enough to aspirate, which would allow for continued drainage. This is a temporizing measure while awaiting transfer. If the paracentesis is unsuccessful, then we may have to proceed with a laparotomy for surgical decompression. This would require temporary abdominal wall closure with a wound vac and she would have to return to the OR every few days until edema subsides to allow for primary closure. Will continue to monitor closely with serial abdominal exams and IAP monitoring while awaiting transfer. (2) Acute pancreatitis: Code(s): K85.90 - Acute pancreatitis without necrosis or infection, unspecified Status: Acute Assessment and Plan: Severe alcohol-induced pancreatitis. Lipase trending down. Repeat CT abdomen/pelvis yesterday showed worsening peripancreatic edema and inflammation. No pseudocyst or peripancreatic fluid collection, although a moderate amount of abdominopelvic fluid was noted with a possible upper abdominal mesenteric hematoma. She is noted to be anemic with hgb trending down. Lovenox on hold. (3) Acute respiratory failure: Code(s): J96.00 - Acute respiratory failure, unspecified whether with hypoxia or hypercapnia Status: Acute (4) Anemia: Code(s): D64.9 - Anemia, unspecified Status: Acute Assessment and Plan: Hgb dropped from 14.2 yesterday morning to now 8.2 around noon today. Now findings of possible abdominal mesenteric hematoma. Monitor Q6 H/H. Transfuse as needed. Lovenox on hold. (5) Cardiac arrest: Code(s): I46.9 - Cardiac arrest, cause unspecified Status: Acute Assessment and Plan: Patient brought to the ICU for Precedex. She became bradycardic, hypotensive, and went into PEA arrest. She was intubated and ROSC was achieved. Continue critical care management. (6) Acute kidney injury: Code(s): N17.9 - Acute kidney failure, unspecified Status: Acute Assessment and Plan: Initially felt to be related to SIRs, pancreatitis, hypovolemia, rhabdomyolysis. She continues to have worsening renal function with oliguria and now with high intra-abdominal pressure, concerning for abdominal compartment syndrome. Planning for paracentesis today for abdominal decompression, see plan above. Monitor labs. Renal US with no hydronephrosis. Nephrology consulted. (7) Alcohol abuse: Code(s): F10.10 - Alcohol abuse, uncomplicated Status: Acute (8) Adynamic ileus: Code(s): K56.0 - Paralytic ileus Status: Acute Assessment and Plan: Noted on initial CT abdomen/pelvis from 09/29/21. This likely was related to the pancreatitis and seems to be resolving. Repeat CT yesterday showed no small or large bowel dilatation and patient is having bowel movements. NG tube will remain in place while on the mechanical ventilator. Plan I have discussed the patient's case and plan of care with Dr. Gipson. Thank you for allowing us to see the patient in consultation and we will continue to follow along with you. History of Present Illness Consu
--- NOTE | 2021-10-02 16:00 | PM.PNGS ---
Progress Note: A&P Assessment and Plan (1) Acute pancreatitis: Code(s): K85.90 - Acute pancreatitis without necrosis or infection, unspecified Status: Acute Assessment and Plan: Acute alcoholic pancreatitis with severe systemic manifestations. I discussed the patient with homemaker companion, Dr. Ricketts. Efforts are being made to transfer the patient both for the severity of the pancreatitis as well as the increased intra-abdominal pressures and compartment syndrome. Currently acute kidney injury with oliguria is most obvious consequence of increased it intra-abdominal pressures. Lactic acid has improved to normal. Patient is not on vasopressor agents. (2) Acute respiratory failure: Code(s): J96.00 - Acute respiratory failure, unspecified whether with hypoxia or hypercapnia Status: Acute Assessment and Plan: Continues on mechanical ventilator (3) Cardiac arrest: Code(s): I46.9 - Cardiac arrest, cause unspecified Status: Acute Assessment and Plan: PE a arrest yesterday, intubated and critically ill since then. (4) Abdominal compartment syndrome, nontraumatic: Code(s): M79.A3 - Nontraumatic compartment syndrome of abdomen Status: Acute Assessment and Plan: Bladder pressure is significantly elevated at 24 and 27 today. Patient is scheduled to have paracentesis and I called and talked with the radiologist, , who will perform the paracentesis and also place a larger diameter pigtail catheter to hopefully continue to drain peritoneal fluid. While this may be effective, patient may also still need laparotomy and management of open abdomen. Patient also has been accepted to [facility] but we are waiting a bed. Thank you for asking us to see this patient in consultation. Will follow along with you. Subjective Subjective Date/Time Seen: 10/02/21 16:00 Patient reports: other (Pancreatitis and abdominal compartment syndrome) Interval history: Patient is a 36-year-old woman with history of heavy alcohol use who presented on 09/29 with acute pancreatitis and a lipase level in the 30,000 range. Although her lipase levels were improving, she developed more toxicity and yesterday was having respiratory difficulty and possibly some withdrawal syndrome. She was transferred to the ICU and Precedex was was started. She had a PE a arrest and was resuscitated but remained intubated in the ICU critically ill. Since her admission, she has had an I and O balance of +11 L. she is noted to have a very distended tense abdomen and her renal function has deteriorated. Serum lipase levels have continued to improve but toxicity a pancreatitis persists. Her lactate level was elevated but has come down to normal. She is no longer on any pressors for blood pressure support. We were asked to see the patient regarding abdominal compartment syndrome as previous measurements of her urinary bladder pressure were 24 earlier today and 27 later today. Please refer to the full consultation dictated by Fatuma WALTERS for additional history and findings. Review of Systems Review of Systems: ROS unobtainable: Yes unobtainable due to endotracheal tube Exam Const: Orientation/consciousness: patient obtunded (Sedated on mechanical ventilator) GI: Inspection: Abdominal wall edema and distended GI Palp: Yes Firmness to palpation present (GI) Percussion: Yes dullness to percussion Auscultation: absent bowel sounds Objective Data Vital Signs Vital Signs: Vital Signs - 24 hr 10/01/21 16:44 10/01/21 18:00 10/01/21 20:00 Temperature Pulse Rate 129 H 122 H 122 H Pulse Rate [Left Monitor] Respiratory Rate Blood Pressure Pulse Oximetry 97 Oxygen Delivery Mechanical Ventilation Fraction of Inspired Oxygen 80 10/01/21 20:00 10/01/21 20:00 10/01/21 20:00 Temperature 36.4 C Pulse Rate 122 H 122 H Pulse Rate [Left Monitor] 122 H Respiratory Rate 20 20 B
[2021-10-02 16:27] LABS: Glucose Point of Care 123 mg/dl (65-105)
[2021-10-02 19:02] LABS: Anion Gap 12 mmol/L (8-16); Blood Urea Nitrogen 31 mg/dL (7-17); Calcium 4.2 mg/dL (8.4-10.2); Carbon Dioxide 14 mmol/L (22-30); Chloride 101 mmol/L (98-107); Estimated CRCL calculation 31 ml/min; Estimated Glomerular Filt Rate 27; Glucose 100 mg/dL (65-110); Potassium 3.6 mmol/L (3.4-5.0); Sodium 127 mmol/L (137-145)
--- NOTE | 2021-10-02 20:03 | PC.NURSE ---
Mother took all of patient belongings home with her, that included her clothes and electronics.
[2021-10-04 10:29] LABS: Ionized Calcium 2.4 mg/dL (4.8-5.6)
[2021-10-07 18:00] LABS: Chloride Rand Ur <20 mmol/L (32-290); Creatinine Random Urine 144 mg/dL (20-275)
--- NOTE | 2021-10-08 11:37 | PM.TDS ---
Transfer Discharge Sum: Prov Provider Date of admission: 09/29/21 11:57 Primary care physician: Cat Bonilla, Admitting clinician: Alvaro Bassett MD Consults: 09/29/21 Consult to Physician Routine Comment: Consulting Provider: Andi Koo Reason for consultation: Acute pancreatitis Has provider been notified: Yes 10/01/21 14:55 Consult to Physician Routine Comment: spoke with office @[id number](ER,US) Consulting Provider: Ermias Gallo call person/MD group to consult: Nephrology Reason for consultation: TERESA, acute pancreatitis, cardiac arrest Has provider been notified: Yes 10/02/21 Consult to Physician Routine Comment: Consulting Provider: Tae Gipson call person/MD group to consult: Surgery Reason for consultation: Abdominal Compartment Syndrome Has provider been notified: Yes DS: Admitting Diagnosis Discharge Date 10/02/21 Admitting Diagnosis Abdominal pain DS: Discharge Diagnosis Discharge Diagnosis (1) Cardiac arrest: Code(s): I46.9 - Cardiac arrest, cause unspecified Status: Acute Assessment and Plan: Patient went into PEA arrest after starting Precedex infusion, brief arrest with ROSC in 3 minutes -patient intubated and sedated -likely multifactorial, SIRS, electrolyte and metabolic abnormalities, acidosis secondary to acute pancreatitis which could have been (2) Acute respiratory failure: Code(s): J96.00 - Acute respiratory failure, unspecified whether with hypoxia or hypercapnia Status: Acute Assessment and Plan: Acute respiratory failure likely related to PEA arrest -patient was intubated and placed on mechanical ventilation on 10/01/2021 -patient is currently sedated with fentanyl and Versed infusion as she is tachycardic and dyssynchronous with the ventilator (3) Acute pancreatitis: Code(s): K85.90 - Acute pancreatitis without necrosis or infection, unspecified Status: Acute Assessment and Plan: Acute pancreatitis on admission currently elevated lipase which is trending down -triglycerides 193 -patient also has an ileus, NG tube in place -NPO (4) Acute kidney injury: Code(s): N17.9 - Acute kidney failure, unspecified Status: Acute Assessment and Plan: Acute kidney injury likely related to SIRs, acute pancreatitis, hypovolemia, rhabdomyolysis, third-spacing and possible abdominal compartment syndrome -decreased urine output, worsening renal function (5) Alcohol abuse: Code(s): F10.10 - Alcohol abuse, uncomplicated Status: Acute Assessment and Plan: Patient currently sedated. (6) Adynamic ileus: Code(s): K56.0 - Paralytic ileus Status: Acute Assessment and Plan: Per surgery (7) Hypocalcemia: Code(s): E83.51 - Hypocalcemia Status: Acute Assessment and Plan: Monitor electrolytes (8) Abdominal compartment syndrome: Code(s): T79.A3XA - Traumatic compartment syndrome of abdomen, initial encounter Status: Acute Assessment and Plan: On exam patient's abdomen is distended and firm. Abdominal pressure was checked and was 27 which suggests abdominal compartment syndrome. Patient also has poor urine output and worsening renal function General surgery and he recommended patient to be transferred to tertiary facility. (9) Electrolyte abnormality: Code(s): E87.8 - Other disorders of electrolyte and fluid balance, not elsewhere classified Status: Acute Assessment and Plan: Monitor (10) Anemia: Code(s): D64.9 - Anemia, unspecified Status: Acute Assessment and Plan: Patient had a drop in hemoglobin could be partly dilutional but also patient has what appears to be mesenteric hematoma and hemorrhagic content in the ascites fluid. This could be secondary to pancreatitis. Hold hold Lovenox Ppi IV q.12 hours Monitor hemoglobin (11) Abdominal compartment syndrome, n
== END 2021-10-02 19:45 | disposition short-term general hospital (02) | DRG 282 ==
LOC: ANHED 12:01 → ANH2MED 13:56 → ANH3MED 14:23 → ANHIMU 10-01 01:03 → ANHICU 10-01 12:31
PROVIDERS: Emergency Medicine; Internal Medicine; Internal Medicine Gastroenterology; Nurse Practitioner; Nurse Practitioner Family; Physician Assistant; Student in an Organized Health Care Education/Training Program; Admitting Provider Internal Medicine; Emergency Provider Emergency Medicine; PCP Family Medicine; Visit Provider Chiropractor
DX: K85.20 Alcohol induced acute pancreatitis without necrosis or infection (principal); J96.00 Acute respiratory failure, unspecified whether with hypoxia or hypercapnia; N17.9 Acute kidney failure, unspecified; K56.0 Paralytic ileus; M79.A3 Nontraumatic compartment syndrome of abdomen; I46.9 Cardiac arrest, cause unspecified; D64.9 Anemia, unspecified; E87.1 Hypo-osmolality and hyponatremia; F10.10 Alcohol abuse, uncomplicated; R65.10 Systemic inflammatory response syndrome (SIRS) of non-infectious origin without acute organ dysfunction; Y90.6 Blood alcohol level of 120-199 mg/100 ml; E87.6 Hypokalemia; R74.01 Elevation of levels of liver transaminase levels; F17.290 Nicotine dependence, other tobacco product, uncomplicated; Z20.822 Contact with and (suspected) exposure to COVID-19; E83.42 Hypomagnesemia; E83.51 Hypocalcemia; K76.0 Fatty (change of) liver, not elsewhere classified; F32.A Depression, unspecified; F41.9 Anxiety disorder, unspecified; L70.0 Acne vulgaris; L30.9 Dermatitis, unspecified; Z90.49 Acquired absence of other specified parts of digestive tract
CPT/HCPCS: 31500; 36415; 36569; 36600; 70450; 71045; 71250; 74019; 74176; 74177; 75989; 76775; 80048; 80053; 80307; 81001; 81025; 82140; 82247; 82248; 82306; 82310; 82330; 82375; 82436; 82550; 82570; 82607; 82728; 82746; 82805; 82948; 83050; 83540; 83550; 83605; 83690; 83735; 83970; 84100; 84133; 84295; 84300; 84478; 84484; 85014; 85018; 85025; 85027; 85055; 85380; 85610; 85730; 85999; 86140; 87040; 87086; 92950; 93005; 94002; 94003; 96361; 96374; 96375; 96376; 99285; A9270; C1729; C1751; C9113; C9803; J0171; J0461; J0610; J0743; J1170; J1650; J2250; J2405; J3010; J3360; J3411; J3475; J3480; J7030; J7040; J7070; J7120; P9047; Q9967; U0003; U0005

== ENCOUNTER 2021-11-21 17:55 | Emergency (ER) | payer BC, SELFPAY ==
--- NOTE | ~2021-11-21 | XR_ITS ---
EXAMINATION: XR chest 2V DATE: 11/21/2021 19:14 INDICATION: Fever TECHNIQUE: frontal and lateral views of the chest were obtained. COMPARISON: Chest radiograph dated 10/02/2021 FINDINGS: Opacities at the left lung base with blunting at the posterior sulcus and costophrenic angle consiste nt with small left pleural effusion and associated atelectasis and/or pneumonia. More linear discoid atelectasis in the right lower lung zone. No pneumothorax or right-sided pleural effusion. Heart size is normal. IMPRESSION: 1. Small left pleural effusion with left basilar atelectasis and/or pneumonia. 2. Mild scattered discoid atelectasis in the right lower lung zone. Reviewed, dictated and finalized at location A.
--- NOTE | ~2021-11-21 | CT_ITS ---
EXAMINATION: CTA chest PE abdomen pel DATE: 11/21/2021 20:22 INDICATION: Fever. Pancreatitis. Abdominal pain and vomiting. Tachycardia and shortness of breath. TECHNIQUE: Computed tomography (CT) pulmonary angiogram of the chest was performed with 100 mL Omnipa que-350 intravenous contrast. Additional 3D reconstructions utilizing coronal maximum intensity proje ction (MIP) were performed. CT of the abdomen and pelvis was performed with intravenous contrast util izing the same contrast bolus following a short delay. Automated exposure control and iterative recon struction technique were employed. The dose-length product was 458.13 mGy-cm. COMPARISON: CT abdomen pelvis dated 10/01/2021 FINDINGS: Chest: Good contrast opacification of the pulmonary arteries. There is mild streak artifact from dense contr ast in the superior vena cava and right atrium. Mild respiratory motion at the lung bases mildly decr eases sensitivity in some of the smaller subsegmental pulmonary arteries. No pulmonary embolism. Smal l left pleural effusion. Consolidation in the basilar left lower lobe most likely atelectasis althoug h difficult to exclude superimposed pneumonia. More linear discoid atelectasis in the right middle an d lower lobes. Heart size is normal. No pericardial effusion. Thoracic aorta is normal in caliber wit h no dissection. No pathologically enlarged thoracic lymphadenopathy. Mild thoracic spondylosis. Abdomen/pelvis: Cholecystectomy clips the gallbladder fossa. Liver, spleen, bilateral adrenal glands and kidneys are normal. Peripheral enhancement of a loculated peripancreatic collection of mixed attenuation fluid, f at and gas which surrounds the body and tail of the pancreas and which tracks caudally both into the region of the and root of the mesentery as well as along the left pararenal space into the presacral space and sigmoid mesentery. Left lower quadrant percutaneous drainage catheter extends into the lele ection at the inferior left posterior pararenal space. There is an additional right lower quadrant pe rcutaneous drainage catheter located in the retroperitoneum along the right iliac crest with addition al small peripherally enhancing loculated pocket of subtly heterogeneous attenuation fluid and some g as. There is a minimal amount of free intraperitoneal ascites with no maria dolores peroneal gas. No bowel ob struction. Mild likely reactive retroperitoneal lymphadenopathy more notable for the number of lymph nodes rather than the size. No pathologically enlarged lymphadenopathy. Bones are unremarkable. Diffu se body wall edema. IMPRESSION: 1. No pulmonary embolism. 2. Small left pleural effusion with left basilar consolidation, most likely atelectasis although coul d not exclude superimposed pneumonia. 3. Interval progression of ongoing likely acute on chronic pancreatitis with large peripherally enhan cing retroperitoneal collection of heterogeneous fluid, gas and fat consistent with walled off necros is surrounding the body and tail the pancreas with extension to the mesentery, the left pararenal spa ce, sigmoid mesentery and presacral space with left lower quadrant percutaneous drainage catheter wit hin the collection at the left pararenal space. 4. Second right lower quadrant percutaneous drainage catheter within a separate similar-appearing com plex retroperitoneal gas and fluid collection extending caudally from the posterior right pararenal s pace. Reviewed, dictated and finalized at location A. IMPRESSION: 1. No pulmonary embolism. 2. Small left pleural effusion with left basilar consolidation, most likely ate lectasis although could not exclude superimposed pneumonia. 3. Interval progression of ongoing likely acute on chronic pancreatitis with la rge peripherally enhancing
[2021-11-21 18:07] VITALS: BP 117/53; PULSE 153; RESP 20; TEMP 37.3; O2SAT 97
--- NOTE | 2021-11-21 18:12 | ECG_ITS ---
Measurements Intervals [place] Rate: 152 P: 59 CA: 114 QRS: 17 QRSD: 93 T: 13 QT: 238 QTc: 379 Interpretive Statements SINUS TACHYCARDIA WITH SHORT CA INTERVAL BORDERLINE R WAVE PROGRESSION, ANTERIOR LEADS BASELINE WANDER- V1 ABNORMAL ECG COMPARED TO ECG 09/30/2021 23:37:02 HEART RATE HAS INCREASED Electronically Signed On 11-21-2021 20:11:42 CDT by Romulo Rivers D.O.
--- NOTE | 2021-11-21 18:22 | ED.FEVER ---
HPI - Fever General Chief Complaint: Fever <DAIN Barlow Last Filed: 11/22/21 01:48> Stated Complaint: HIGH FEVER, HX PANCREATITIS <DAIN Barlow Last Filed: 11/22/21 01:48> Time Seen by Provider: 11/21/21 18:21 <DAIN Barlow Last Filed: 11/22/21 01:48> History of Present Illness HPI Narrative: Patient is a 36-year-old female with history of alcoholic pancreatitis complicated by abdominal compartment syndrome, cardiac arrest, requiring transfer to tertiary facility, here for evaluation of fever, nausea, vomiting and generalized weakness over the past 2 days. Patient was initially admitted here on 09/29 but was transferred to [facility] on 10/02 after she had suspected abdominal compartment syndrome. She required surgical intervention and was also in the ICU on pressors for majority of her stay. Patient was discharged from [facility] 6 days ago after she clinically improved. She began to feel generally unwell about 3 days ago. She developed a fever of 104 today at home which prompted ED evaluation. No pretreatment. Had 1 episode of vomiting nonbloody/nonbilious emesis yesterday in addition to decreased appetite. Bowel movements have been normal. Denies any chest pain or syncope but does note she feels winded. <DAIN Barlow Last Filed: 11/22/21 01:48> Related Data Home Medications: Home Medications Medication Instructions Recorded Confirmed multivitamin 1 tablet PO DAILY 09/01/19 09/29/21 chlordiazepoxide 10 mg tablet 10 mg PO TID 09/29/21 09/29/21 <DAIN Barlow Last Filed: 11/22/21 01:48> Allergies/Adverse Reactions: Allergies Allergy/AdvReac Type Severity Reaction Status Date / Time dexmedetomidine Allergy Severe Cardiac Verified 10/01/21 13:37 [From Precedex] arrest <DAIN Barlow Last Filed: 11/22/21 01:48> Review of Systems Review of Systems: Gen: reports fevers and weakness Eyes: Denies eye pain or visual change ENT: Denies congestion Respiratory: Denies shortness of breath or cough CV: Denies chest pain or palpitations GI: Denies abdominal pain nausea, emesis or diarrhea : denies burning, urgency, frequency or hematuria Musculoskeletal: Denies back pain or muscle pain Neuro: Denies numbness, tingling, weakness or focal weakness Skin: Denies rash Except as documented, all other systems reviewed and negative <Chrissy Hanley PA-C - Last Filed: 11/22/21 01:48> [facility] Past Medical History Medical History: Medical History Alcohol abuse Anxiety Cystic acne Depression Eczema Hepatic steatosis <Chrissy Hanley PA-C - Last Filed: 11/22/21 01:48> Surgical History Surgical History: Surgical History History of laparoscopic cholecystectomy (08/2019) <Chrissy Hanley PA-C - Last Filed: 11/22/21 01:48> Family History Family History: Family History Mother Lupus Sibling Detached retina Grandparent Cancer <Chrissy Hanley PA-C - Last Filed: 11/22/21 01:48> Social History Social History: Social History Social History: Surrogate medical decision maker: Lalitha Piper, mother. Code status: Full code. Smoking packs per day: 0.5 Smoking cigarettes per day: 10.0 Years smoked: 10 Smoking pack-years: 5.00 Smoking status: Current every day smoker Tobacco type: e-cigarettes/vaping Additional smoking assessment comments: Quit using cigarettes in 2016, now vapes. Alcohol intake: current Drinks per week: 70 Alcohol use details: Previously drank a half of a 5th of vodka a day, now reportedly drinking less than a half pt. Substance use: unknown Additional living arrangements comments
[2021-11-21 18:48] LABS: Hematocrit 27.6 % (37.0-47.0); Hemoglobin 8.8 g/dL (12.0-15.0); Mean Corpuscular HGB Conc 31.9 g/dl (32-36); Mean Corpuscular Hemoglobin 30.2 pg (26-34); Mean Corpuscular Volume 94.8 fl (80-100); Mean Platelet Volume 8.9 fl (7.4-10.4); Platelet Count Result 394 k/mm3 (150-375); Red Blood Count 2.91 M/mm3 (4.2-5.4); Red Cell Distribution Width 14.5 % (11.5-14.5); White Blood Count 4.7 K/mm3 (4.5-10.0)
[2021-11-21 18:59] LABS: INR 1.6; Prothrombin Time 18.6 Seconds (11.1-14.7)
[2021-11-21 19:00] LABS: Partial Thromboplastin Time 47.1 SECONDS (22.3-36.8)
[2021-11-21 19:03] LABS: Total Cells Counted 100
[2021-11-21 19:04] LABS: Band Neutrophils Percent 17 % (0-6); Lymphocytes Absolute Manual 1.03 K/mm3 (1.1-4.5); Lymphocytes Percent Manual 22 % (18-44); Monocytes Absolute Manual 0.89 K/mm3 (0.1-0.90); Monocytes Percent Manual 19 % (3-9); Neutrophils Absolute Manual 2.77 K/mm3 (1.7-7.2); Neutrophils Percent Manual 42 % (46-73)
[2021-11-21 19:05] LABS: Lactic Acid Reflex 4.3 mmol/L (0.7-2.0)
[2021-11-21 19:06] LABS: Alanine Aminotransferase 17 U/L (6-35); Alkaline Phosphatase 64 U/L (38-126); Anion Gap 12 mmol/L (8-16); Aspartate Amino Transferase 23 U/L (14-36); Blood Urea Nitrogen 9 mg/dL (7-17); Calcium 9.7 mg/dL (8.4-10.2); Carbon Dioxide 22 mmol/L (22-30); Chloride 90 mmol/L (98-107); Estimated Glomerular Filt Rate > 60; Glucose 148 mg/dL (65-110); Platelet Estimate Increased (Adequate); Potassium 3.8 mmol/L (3.4-5.0); Schistocytes None Seen (NORMAL); Sodium 124 mmol/L (137-145)
[2021-11-21 19:09] LABS: Troponin I < 0.012 ng/mL (0.000-0.034)
[2021-11-21 19:22] LABS: Glucose Point of Care 157 mg/dl (65-105)
[2021-11-21 19:35] LABS: Lipase < 10 U/L (23-300)
[2021-11-21] MEDS: LACTATED RINGERS 1,000 ML 999 ML IV CONT ×2 (19:38→21:13)
[2021-11-21 19:42] VITALS: BP 115/58; PULSE 128; RESP 18; TEMP 37.8; O2SAT 95
[2021-11-21 19:44] LABS: Appearance Urine Clear (Clear); Bilirubin Urine Negative (Negative); Blood Urine 1+ (Negative); Color Urine Yellow (Yellow); Glucose Urine UA Negative (Negative); Ketones Urine Negative (Negative); Leukocyte Esterase Ur Negative LEU/UL (Negative); Nitrate Urine Negative (Negative); Protein Urine 1+ mg/dL (Negative); Specific Grav Ur 1.025 (1.001-1.035); Urobilinogen Urine 0.2 mg/dL (<2.0); pH Urine 5.5 (5.0-9.0)
[2021-11-21 19:47] LABS: CRP 36.3 mg/dL (<1.0)
[2021-11-21 19:50] LABS: RBC Urine 0-2 /hpf (0-2); WBC Urine 0-3 /hpf
[2021-11-21 19:51] LABS: Add Urine Microscopic? YES
[2021-11-21 20:31] LABS: SARS-CoV-2 RNA PCR Negative
[2021-11-21 21:46] LABS: Reflex Lactic Acid Yes or No Add Lactic
[2021-11-21 22:18] VITALS: BP 110/70; PULSE 114; RESP 17
[2021-11-21 22:50] LABS: Lactic Acid 2.6 mmol/L (0.7-2.0)
[2021-11-21] MEDS: MORPHINE SULFATE (*CRX) 4 MG/ML INJ IV PUSH (23:43)
[2021-11-22 00:21] VITALS: TEMP 36.6
--- NOTE | 2021-11-22 00:24 | PC.NURSE ---
spoke with josiane from [facility] and patient is accepted. triage information given. approx 1 day waiting period per Josiane. provider aware
[2021-11-22] MEDS: LACTATED RINGERS 1,000 ML 150 ML IV CONT (00:39)
[2021-11-22 01:00] VITALS: BP 121/71; PULSE 113; RESP 18; O2SAT 98
[2021-11-22 01:47] VITALS: BP 112/74; PULSE 113; RESP 20; O2SAT 98
--- NOTE | 2021-11-23 04:11 | PC.NURSE ---
Positive preliminary blood culture reported to Court at [facility] at 0410.
== END 2021-11-22 02:37 | disposition short-term general hospital (02) ==
PROVIDERS: Emergency Medicine; Physician Assistant; Emergency Provider General Practice; PCP Family Medicine
DX: E87.2 Acidosis (principal); R10.9 Unspecified abdominal pain; Z20.822 Contact with and (suspected) exposure to COVID-19; F17.290 Nicotine dependence, other tobacco product, uncomplicated
CPT/HCPCS: 36415; 71046; 71275; 74177; 80053; 81001; 81025; 82948; 83605; 83690; 84484; 85025; 85610; 85730; 86140; 87040; 87077; 87186; 93005; 96361; 96365; 96366; 96367; 96375; 99285; C9803; J0131; J2270; J2543; J7120; Q9967; U0003; U0005

== ENCOUNTER 2021-12-02 20:17 | Emergency (ER) | payer BC, SELFPAY ==
[2021-12-02 20:43] VITALS: BP 122/96; PULSE 116; RESP 16; TEMP 37.2; O2SAT 100
--- NOTE | 2021-12-02 21:22 | ED.GENADULT ---
HPI - General Adult General Chief complaint: Unspecified <DAIN Barlow Last Filed: 12/02/21 23:06> Stated complaint: needed medications following surgery <DAIN Barlow Last Filed: 12/02/21 23:06> Time Seen by Provider: 12/02/21 21:10 <DAIN Barlow Last Filed: 12/02/21 23:06> History of Present Illness HPI narrative: Patient is a 6-year-old female with a history of pancreatitis, recently hospitalized at [facility], with drains in place, discharged today from that facility here with concerns over her care facility she was discharged to. Patient states that she was discharged from the hospital, went to [facility], but the room was not set up, it was dirty , and he did not have the IV poles for patient Clement that she is scheduled to get every 6 hours. Patient left AMA due to these concerns and came straight to our facility. Attempted to contact social work job titles at [facility] and he did not answer. Patient states that she does not wish to be discharged to a care facility at this time and would like to go home. They did receive the materials needed at [facility] to start home health, but they do not have an order for antibiotics just yet. Patient feels well, denies fevers, chills, abdominal pain, nausea or vomiting. She had labs done this morning that I reviewed and are reassuring. <DAIN Barlow Last Filed: 12/02/21 23:06> Related Data Home medications: Home Medications Medication Instructions Recorded Confirmed multivitamin 1 tablet PO DAILY 09/01/19 09/29/21 chlordiazepoxide 10 mg tablet 10 mg PO TID 09/29/21 09/29/21 <DAIN Barlow Last Filed: 12/02/21 23:06> Allergies/adverse reactions: Allergies Allergy/AdvReac Type Severity Reaction Status Date / Time dexmedetomidine Allergy Severe Cardiac Verified 12/02/21 20:21 [From Precedex] arrest <DAIN Barlow Last Filed: 12/02/21 23:06> Review of Systems Review of Systems: Gen: Denies fevers or chills Eyes: Denies eye pain or visual change ENT: Denies congestion Respiratory: Denies shortness of breath or cough CV: Denies chest pain or palpitations GI: Denies abdominal pain nausea, emesis or diarrhea : denies burning, urgency, frequency or hematuria Musculoskeletal: Denies back pain or muscle pain Neuro: Denies numbness, tingling, weakness or focal weakness Skin: Denies rash Except as documented, all other systems reviewed and negative <Chrissy Hanley PA-C - Last Filed: 12/02/21 23:06> [facility] Past Medical History Medical History: Medical History Alcohol abuse Anxiety Cystic acne Depression Eczema Hepatic steatosis <Chrissy Hanley PA-C - Last Filed: 12/02/21 23:06> Surgical History Surgical History: Surgical History History of laparoscopic cholecystectomy (08/2019) <Chrissy Hanley PA-C - Last Filed: 12/02/21 23:06> Family History Family History: Family History Mother Lupus Sibling Detached retina Grandparent Cancer <Chrissy Hanley PA-C - Last Filed: 12/02/21 23:06> Social History Social History: Social History Social History: Surrogate medical decision maker: Lalitha Piper, mother. Code status: Full code. Smoking packs per day: 0.5 Smoking cigarettes per day: 10.0 Years smoked: 10 Smoking pack-years: 5.00 Smoking status: Current every day smoker Tobacco type: e-cigarettes/vaping Additional smoking assessment comments: Quit using cigarettes in 2016, now vapes. Alcohol intake: current Drinks per week: 70 Alcohol use details: Previously drank a half of a 5th of vodka a day, now reportedly drinking less than a rousseau
--- NOTE | 2021-12-02 22:33 | PC.NURSE ---
verbal order for KAMRON Tejeda you are able to access PICC Line.
[2021-12-02] MEDS: oxyCODONE HCL (*CRX) 5 MG TAB IR PO (22:45)
[2021-12-03 00:03] VITALS: BP 134/88; PULSE 90; RESP 18; O2SAT 98
== END 2021-12-03 00:07 | disposition home or self-care (01) ==
PROVIDERS: Emergency Provider Preventive Medicine Aerospace Medicine; PCP Family Medicine
DX: K85.90 Acute pancreatitis without necrosis or infection, unspecified (principal); F17.290 Nicotine dependence, other tobacco product, uncomplicated; Z98.890 Other specified postprocedural states
CPT/HCPCS: 96365; 99284; A9270; J2543

== ENCOUNTER 2023-07-12 17:35 | Emergency (ER) | payer BC, SELFPAY ==
--- NOTE | ~2023-07-12 | CT_ITS ---
EXAMINATION: CT abdomen pelvis w con DATE: 07/12/2023 19:15 INDICATION: left upper abdomen TECHNIQUE: Computed tomography (CT) of the abdomen and pelvis was performed with 100 mL Omnipaque-350 intravenous contrast. Automated exposure control and iterative reconstruction technique were employe d. The dose-length product was 323.06 mGy-cm. COMPARISON: CTPA chest with abdomen and pelvis 11/21/2021. FINDINGS: Lower thorax: Unremarkable Liver: Normal. Biliary/Gallbladder: Gallbladder is absent. Mild extrahepatic duct dilation likely secondary to ansley cystectomy. Pancreas: Mild atrophy. Loss of the normal lobulated pancreatic contour. Mild peripancreatic strandin g. 11 mm low-density lesion at the tail the pancreas. Spleen: Normal. Adrenals:No mass. Kidneys: No suspicious mass, obstructing stone, or hydronephrosis. GI tract: Moderate distal esophageal and gastric wall edema. No small or large bowel dilation. Normal appendix. Mesentery/Peritoneum: No ascites, mass, or free air. Thickening of the soft tissue planes along the l eft paracolic gutter and lateral conal fascia, extending along the left pelvic sidewall, with radiati ng strands extending to the loops of disorganized appearing sigmoid. Retroperitoneum: No mass. Pelvis: Pelvic organs are within normal limits. Soft Tissues: Soft tissues and body wall unremarkable. Bones: No acute osseous finding. IMPRESSION: Moderate esophagitis/gastritis. Suggestion of mild pancreatic edema and inflammatory change, may be reactive or related to acute panc reatitis. Correlate with pancreatic labs. 11 mm cystic lesion at the tail of pancreas, may represent a residual or recurrent peripancreatic flu id collection. Thickening of the peritoneal reflections in the left abdomen, pelvis, and sigmoid mesentery, likely r esidual scarring from prior pancreatitis and extensive, now largely resolved retroperitoneal necrotic collection. Reviewed, dictated and finalized at location K. IMPRESSION: Moderate esophagitis/gastritis. Suggestion of mild pancreatic edema and inflammatory change, may be reactive or related to acute pancreatitis. Correlate with pancreatic labs. 11 mm cystic lesion at the tail of pancreas, may represent a residual or recurr ent peripancreatic fluid collection. Thickening of the peritoneal reflections in the left abdomen, pelvis, and sigmo id mesentery, likely residual scarring from prior pancreatitis and extensive, n ow largely resolved retroperitoneal necrotic collection.
[2023-07-12 17:38] VITALS: BP 150/91; PULSE 97; RESP 18; TEMP 37.1; O2SAT 99
[2023-07-12 17:51] LABS: Basophils Absolute Auto 0.1 K/mm3 (0.0-0.1); Basophils Percent Auto 1.2 % (0.2-1.2); Eosinophils Absolute Auto 0.2 K/mm3 (0-0.3); Hematocrit 39.7 % (37.0-47.0); Hemoglobin 13.3 g/dL (12.0-15.0); Immature Granulocyte Absolute 0.01 K/mm3 (0.00-0.031); Immature Granulocyte Percent A 0.1 % (0-0.5); Lymphocytes Absolute Auto 4.94 K/mm3 (0.9-3.2); Lymphocytes Percent Auto 48.9 % (18.3-44.2); Mean Corpuscular HGB Conc 33.5 g/dl (32-36); Mean Corpuscular Hemoglobin 32.8 pg (26-34); Mean Platelet Volume 8.6 fl (7.4-10.4); Monocytes Absolute Auto 0.7 K/mm3 (0.1-0.6); Monocytes Percent Auto 6.6 % (2.6-8.5); Neutrophils Absolute Auto 4.2 K/mm3 (1.3-6.7); Neutrophils Percent Auto 41.2 % (45.5-73.1); Platelet Count Result 260 k/mm3 (150-375); Red Blood Count 4.05 M/mm3 (4.2-5.4); White Blood Count 10.1 K/mm3 (4.5-10.0)
[2023-07-12 18:01] VITALS: BP 125/93; PULSE 100; RESP 20; O2SAT 100
[2023-07-12 18:13] LABS: Appearance Urine Cloudy (Clear); Bacteria Urine 1+ /hpf; Bilirubin Urine Negative (Negative); Blood Urine Negative (Negative); Color Urine Yellow (Yellow); Glucose Urine UA Negative (Negative); Ketones Urine Negative (Negative); Leukocyte Esterase Ur Trace LEU/UL (Negative); Nitrate Urine Negative (Negative); Non Pathogenic Casts 0-2; Protein Urine Negative (Negative); RBC Urine 0-2 /hpf (0-2); Specific Grav Ur 1.012 (1.001-1.035); Squamous Epithelial Cell Urine Moderate /hpf (Few)
[2023-07-12 18:26] LABS: Add Urine Microscopic? YES
[2023-07-12 19:07] LABS: Estimated CRCL calculation 96 ml/min; Estimated Glomerular Filt Rate > 60
--- NOTE | 2023-07-12 19:18 | PC.NURSE ---
this rn assumed care of patient. this rn took patient report from Khalif Dunbar.
--- NOTE | 2023-07-12 19:20 | PC.NURSE ---
this rn assumed care of patient. this rn took patient report from hKalif Dunbar.
[2023-07-12] MEDS: ONDANSETRON INJ 4 MG/2 ML VIAL IV PUSH (19:24)
[2023-07-12] MEDS: FAMOTIDINE 20 MG/2 ML VIAL IV PUSH (19:24)
[2023-07-12] MEDS: SODIUM CHLORIDE 0.9% IV 1,000 ML 999 ML IV CONT ×2 (19:24→20:51)
[2023-07-12] MEDS: MORPHINE SULFATE (*CRX) 4 MG/ML INJ IV PUSH (19:24)
[2023-07-12 19:30] VITALS: BP 143/92; PULSE 89; RESP 22; O2SAT 100
--- NOTE | 2023-07-12 19:36 | ED.GENADULT ---
HPI - General Adult General Chief complaint: Abdominal Pain Stated complaint: ?pancreatitis Time Seen by Provider: 07/12/23 17:43 History of Present Illness HPI narrative: Lalitha Piper is a 38 y/o female who presents with complaints of having left upper abdominal pain that started today. She states that it usually happens when she drinks too much ETOH and she has had pancreatitis before. She states she had about a pint and a half and she drinks off and on and has struggled with alcoholism for about 8 months. + nausea/ vomiting Related Data Home Medications Medication Instructions Recorded Confirmed multivitamin 1 tablet PO DAILY 09/01/19 09/29/21 chlordiazepoxide 10 mg tablet 10 mg PO TID 09/29/21 09/29/21 Allergies Allergy/AdvReac Type Severity Reaction Status Date / Time dexmedetomidine Allergy Severe Cardiac Verified 07/12/23 17:42 [From Precedex] arrest Review of Systems Review of Systems: CONSTITUTIONAL: Denies fever, chills, or sweats. EYES: Denies visual changes, redness, or discharge. ENT: Denies rhinorrhea, congestion, sore throat, or otalgia. CARDIOVASCULAR: Denies chest pain, palpitations, or edema. RESPIRATORY: Denies cough or dyspnea. GASTROINTESTINAL: + abdominal pain + N/V GENITOURINARY: Denies dysuria or hematuria. SKIN: Denies rash or itching. MUSCULOSKELETAL: Denies back pain, joint pain, or myalgia. NEUROLOGIC: Denies headache, numbness, dizziness, or weakness. PSYCHIATRIC: Denies anxiety or depression. [facility] Past Medical History Medical History Alcohol abuse Anxiety Cystic acne Depression Eczema Hepatic steatosis Surgical History Surgical History History of laparoscopic cholecystectomy (08/2019) Family History Family History Mother Lupus Sibling Detached retina Grandparent Cancer Social History Social History Social History: Surrogate medical decision maker: Lalitha Piper, mother. Code status: Full code. Smoking packs per day: 0.5 Smoking cigarettes per day: 10.0 Years smoked: 10 Smoking pack-years: 5.00 Smoking status: Current every day smoker Tobacco type: e-cigarettes/vaping Additional smoking assessment comments: Quit using cigarettes in 2016, now vapes. Alcohol intake: current Drinks per week: 70 Alcohol use details: Previously drank a half of a 5th of vodka a day, now reportedly drinking less than a half pt. Substance use: unknown Living arrangements: alone Additional living arrangements comments: The patient lives with her fiance in [place]. Occupation/Education: occupation Additional occupation/education comments: Artist, works from home. Spiritual care concerns: No Exam Narrative: GENERAL: Well-appearing, well-nourished, and in no acute distress. HEAD: Normocephalic, atraumatic. EYES: PERRLA and EOMI. ENT: Nares clear, no rhinorrhea or epistaxis. Mucous membranes moist. Oropharynx without tonsillar hypertrophy exudate or other lesions. NECK: Supple. No adenopathy or masses. No carotid bruits or JVD CHEST: Clear to auscultation. No respiratory distress. No wheezes rales or rhonchi HEART: Regular rate and rhythm. No murmur heard. Normal peripheral pulses. ABDOMEN: EXTREMITIES: Normal range of motion. No edema. SKIN: Warm, dry, no rash. NEURO: No focal deficits. Alert and oriented x3. PSYCH: Normal mood and affect. Course Vital Signs Vital signs: Vital Signs Temperature 37.1 C 07/12/23 17:38 Pulse Rate 97 07/12/23 17:38 Respiratory Rate 18 07/12/23 17:38 Blood Pressure 150/91 H 07/12/23 17:38 Pulse Oximetry 99 07/12/23 17:38 Oxygen Delivery Room Air 07/12/23 17:38 Temperature 37.1 C 07/12/23 17:38 Pulse Rate 100 07/12/23 18:01 Respiratory Rate 20
[2023-07-12 19:46] VITALS: BP 138/79; PULSE 94; RESP 18; O2SAT 100
[2023-07-12 20:08] LABS: Alanine Aminotransferase 71 U/L (6-35); Albumin Level 4.9 g/dL (3.5-5.1); Alkaline Phosphatase 110 U/L (38-126); Anion Gap 16 mmol/L (4-12); Aspartate Amino Transferase 76 U/L (14-36); Bilirubin,Total 0.9 mg/dL (0.2-1.3); Blood Urea Nitrogen 12 mg/dL (7-17); Calcium 8.6 mg/dL (8.4-10.2); Carbon Dioxide 13 mmol/L (22-30); Chloride 110 mmol/L (98-107); Estimated CRCL calculation 158 ml/min; Estimated Glomerular Filt Rate > 60; Glucose 72 mg/dL (65-110); Lipase 106 U/L (23-300); Potassium 4.1 mmol/L (3.4-5.0); Sodium 139 mmol/L (137-145)
[2023-07-12 21:17] VITALS: BP 134/74; PULSE 64; RESP 18; O2SAT 99
== END 2023-07-12 21:41 | disposition home or self-care (01) ==
PROVIDERS: Emergency Provider Nurse Practitioner Family
DX: K29.20 Alcoholic gastritis without bleeding (principal); F17.210 Nicotine dependence, cigarettes, uncomplicated; F41.9 Anxiety disorder, unspecified; F32.A Depression, unspecified; K76.0 Fatty (change of) liver, not elsewhere classified
CPT/HCPCS: 36415; 74177; 80053; 81001; 81025; 83690; 85025; 87086; 87088; 96361; 96374; 96375; 99284; J2270; J2405; J7030; Q9967

== ENCOUNTER 2023-10-08 19:20 | Emergency (ER) | payer OTHER, MEDICAID, SELFPAY ==
--- NOTE | ~2023-10-08 | CT_ITS ---
EXAMINATION: CT cervical spine wo con DATE: 10/08/2023 20:46 INDICATION: Fall with head injury TECHNIQUE: Computed tomography (CT) of the cervical spine was performed without intravenous contrast. Automated exposure control and iterative reconstruction technique were employed. The dose-length pro duct was 605.33 mGy-cm. COMPARISON: None FINDINGS: Alignment is normal. Vertebral body and disc multilevel minimal to mild cervical facet and uncoverteb ral osteoarthritis. No central canal or neural foraminal stenosis. Cervical soft tissues are unremark able. Visualized upper lungs are clear. Heights are normal. No fracture. IMPRESSION: 1. Minimal to mild cervical facet and uncovertebral osteoarthritis. No acute osseous abnormality. Reviewed, dictated and finalized at location A. IMPRESSION: 1. Minimal to mild cervical facet and uncovertebral osteoarthritis. No acute os seous abnormality.
--- NOTE | ~2023-10-08 | CT_ITS ---
EXAMINATION: CT brain wo con DATE: 10/08/2023 20:45 INDICATION: Fall with head injury TECHNIQUE: Computed tomography (CT) of the head was performed without intravenous contrast. Sagittal and coronal reconstructions were performed. The mA was adjusted according to patient size. Iterative reconstruction technique was employed. The dose-length product was 605.33 mGy-cm. COMPARISON: head CT dated 10/01/2021 FINDINGS: Small left parietal scalp hematoma. No fracture. No acute intracranial hemorrhage, acute infarction o r abnormal extra axial fluid collection. Ventricles are normal and symmetric. No mass/mass effect. Th e orbits, paranasal sinuses and mastoid air cells are normal. IMPRESSION: 1. No fracture or acute intracranial process. Reviewed, dictated and finalized at location A.
[2023-10-08 19:35] VITALS: BP 127/75; PULSE 88; RESP 19; TEMP 36.8; O2SAT 99
--- NOTE | 2023-10-08 20:12 | ED.FALL ---
HPI - Fall General Chief Complaint: Fall Stated Complaint: fall/lac Time Seen by Provider: 10/08/23 19:32 Source: patient Mode of arrival: ambulatory Limitations: no limitations History of Present Illness HPI Narrative: patient is a 38-year-old female, with past medical history of bipolar disorder and alcohol abuse, who presents the ED with report of a head injury. Patient reports she slipped and fell getting out of shower tonight and hit her head against her radiator. She sustained a laceration to her left scalp. Denied LOC. Denies dizziness, lightheadedness, vision changes, nausea, vomiting, neck or back pain. Tetanus up-to-date. Related Data Home Medications Medication Instructions Recorded Confirmed multivitamin 1 tablet PO DAILY 09/01/19 09/29/21 chlordiazepoxide 10 mg tablet 10 mg PO TID 09/29/21 09/29/21 Allergies Allergy/AdvReac Type Severity Reaction Status Date / Time dexmedetomidine Allergy Severe Cardiac Verified 07/12/23 17:42 [From Precedex] arrest Review of Systems Review of Systems: CONSTITUTIONAL: Denies fever, chills, or sweats. GASTROINTESTINAL: Denies nausea, vomiting MUSCULOSKELETAL: Denies back pain, neck pain. NEUROLOGIC: see HPI. All systems reviewed & are unremarkable except as noted in HPI and below PMFSH Past Medical History Medical History Alcohol abuse Anxiety Cystic acne Depression Eczema Hepatic steatosis Surgical History Surgical History History of laparoscopic cholecystectomy (08/2019) Family History Family History Mother Lupus Sibling Detached retina Grandparent Cancer Social History Social History Social History: Surrogate medical decision maker: Lalitha Veronique, mother. Code status: Full code. Smoking packs per day: 0.5 Smoking cigarettes per day: 10.0 Years smoked: 10 Smoking pack-years: 5.00 Smoking status: Current every day smoker Tobacco type: e-cigarettes/vaping Additional smoking assessment comments: Quit using cigarettes in 2016, now vapes. Alcohol intake: current Drinks per week: 70 Alcohol use details: Previously drank a half of a 5th of vodka a day, now reportedly drinking less than a half pt. Substance use: unknown Living arrangements: alone Additional living arrangements comments: The patient lives with her fiance in [place]. 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 HEAD: Normocephalic. 3 cm Y-shaped laceration to left parietal scalp. Minimal active bleeding. NECK: supple, normal ROM, no tenderness throughout spine. RESPIRATORY: Airway patent, respirations nonlabored. CARDIOVASCULAR: Regular rate and rhythm MUSCULOSKELETAL: Moves all extremities. No gross deformities. SKIN: Warm, dry, normal color. Cystic acne changes to face. NEURO: A&O X3. Speech clear. PSYCHIATRIC: Appropriate mood and affect. Normal interaction. Course Vital Signs Vital signs: Vital Signs Temperature 98.2 F 10/08/23 19:35 Pulse Rate 88 10/08/23 19:35 Respiratory Rate 10/08/23 19:35 Blood Pressure 127/75 10/08/23 19:35 Pulse Oximetry 99 10/08/23 19:35 Temperature 98.2 F 10/08/23 19:35 Pulse Rate 88 10/08/23 19:35 Respiratory Rate 19 10/08/23 19:35 Blood Pressure 127/75 10/08/23 19:35 Pulse Oximetry 99 10/08/23 19:35 Procedures Laceration Laceration 1: Date: 10/08/23 Time: 20:56 Site: scalp Side (If applicable): left Size (cm): 3 Description: linear and irregular Depth: simple, single layer
== END 2023-10-08 21:20 | disposition home or self-care (01) ==
PROVIDERS: Emergency Provider Physician Assistant
DX: S01.01XA Laceration without foreign body of scalp, initial encounter (principal); F41.9 Anxiety disorder, unspecified; F32.A Depression, unspecified; W01.0XXA Fall on same level from slipping, tripping and stumbling without subsequent striking against object, initial encounter
CPT/HCPCS: 12002; 70450; 72125; 99284

== ENCOUNTER 2023-10-16 16:47 | Emergency (ER) | payer OTHER, MEDICAID, SELFPAY ==
[2023-10-16 16:56] VITALS: BP 121/72; PULSE 105; RESP 16; TEMP 36.4; O2SAT 100
--- NOTE | 2023-10-16 17:18 | ED.SKABFB ---
HPI - Skin/Abscess/Foreign Bdy General Chief complaint: Skin/Abscess/Foreign Body Stated complaint: need fadi removed Time Seen by Provider: 10/16/23 17:16 Source: patient Mode of arrival: ambulatory Limitations: no limitations History of Present Illness HPI narrative: Patient is a 38-year-old female who presents the ED needing scalp fadi removed. Patient was seen in the ED here on 10/07 for a head injury in which she slipped and fell, sustained a scalp laceration. Received 6 fadi. She has been doing well since the fall. No further injury. Denies any dizziness, lightheadedness, nausea, vision changes. Related Data Home Medications Medication Instructions Recorded Confirmed multivitamin 1 tablet PO DAILY 09/01/19 09/29/21 chlordiazepoxide 10 mg tablet 10 mg PO TID 09/29/21 09/29/21 Allergies Allergy/AdvReac Type Severity Reaction Status Date / Time dexmedetomidine Allergy Severe Cardiac Verified 07/12/23 17:42 [From Precedex] arrest Review of Systems Review of Systems: All systems reviewed & are unremarkable except as noted in HPI. All systems reviewed & are unremarkable except as noted in HPI and below PMFSH Past Medical History Medical History Alcohol abuse Anxiety Cystic acne Depression Eczema Hepatic steatosis Surgical History Surgical History History of laparoscopic cholecystectomy (08/2019) Family History Family History Mother Lupus Sibling Detached retina Grandparent Cancer Social History Social History Social History: Surrogate medical decision maker: Lalitha Piper, mother. Code status: Full code. Smoking packs per day: 0.5 Smoking cigarettes per day: 10.0 Years smoked: 10 Smoking pack-years: 5.00 Smoking status: Current every day smoker Tobacco type: e-cigarettes/vaping Additional smoking assessment comments: Quit using cigarettes in 2016, now vapes. Alcohol intake: current Drinks per week: 70 Alcohol use details: Previously drank a half of a 5th of vodka a day, now reportedly drinking less than a half pt. Substance use: unknown Living arrangements: alone Additional living arrangements comments: The patient lives with her fiance in [place]. 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 HEAD: Normocephalic, atraumatic. Healed laceration to L parietal scalp, fadi in place. Crusted dried blood surrounding fadi. No active bleeding. No significant contusion/tenderness. RESPIRATORY: Airway patent, respirations nonlabored. CARDIOVASCULAR: Regular rate and rhythm MUSCULOSKELETAL: Moves all extremities. No gross deformities. SKIN: Warm, dry, normal color. NEURO: A&O X3. Speech clear. PSYCHIATRIC: Appropriate mood and affect. Normal interaction. Course Vital Signs Vital signs: Vital Signs Temperature 97.5 F L 10/16/23 16:56 Pulse Rate 105 H 10/16/23 16:56 Respiratory Rate 16 10/16/23 16:56 Blood Pressure 121/72 10/16/23 16:56 Pulse Oximetry 100 10/16/23 16:56 Oxygen Delivery Room Air 10/16/23 16:56 Temperature 97.5 F L 10/16/23 16:56 Pulse Rate 105 H 10/16/23 16:56 Respiratory Rate 16 10/16/23 16:56 Blood Pressure 121/72 10/16/23 16:56 Pulse Oximetry 100 10/16/23 16:56 Oxygen Delivery Room Air 10/16/23 16:56 MDM - Skin/Abscess/Foreign Bdy MDM Narrative Medical decision making narrative: Fadi removed. Wound healing nicely, no evidence of dehiscence. No signs of infection. Patient will be discharged. Medical Records Attestation: I reviewed th
== END 2023-10-16 17:31 | disposition home or self-care (01) ==
PROVIDERS: Emergency Provider Physician Assistant
DX: Z48.02 Encounter for removal of sutures (principal); F17.210 Nicotine dependence, cigarettes, uncomplicated
CPT/HCPCS: 15853; 99281

== ENCOUNTER 2024-06-16 11:25 | Emergency (ER) | payer SELFPAY ==
--- NOTE | ~2024-06-16 | CT_ITS ---
CT abdomen pelvis w con Ordering provider: Kirsten Fisher MD History: 39 years Female with . ABDOMINAL PAIN . Comparison: 07/12/2023 Technique: CT abdomen and pelvis with IV and without oral contrast. Automated exposure control and it erative reconstruction technique were employed. The dose-length product was 347.64 mGy-cm. 100 mL Omn ipaque 350 was given IV. Findings: VISUALIZED LOWER CHEST: Normal. UPPER ABDOMINAL ORGANS: Liver: Fat infiltration. Gallbladder: Status post cholecystectomy. Prominent CBD measuring 1.9 cm. Spleen: Normal. Stomach/duodenum: Normal. Pancreas: Normal. Adrenals: Normal. Kidneys: Small cyst in the left kidney upper pole. PELVIC ORGANS: The bladder is underfilled with thickened wall. Evaluation for cystitis advised. Left ovarian cyst measuring 3.5 cm. BOWEL AND MESENTERY: Colon: No evidence of diverticulitis. Fecal material is loaded in the colon suggestive of constipatio n. Normal appendix. Small Bowel: Normal. No obstruction. Peritoneum/mesentery: No free air or free fluid. No mesenteric lymphadenopathy. RETROPERITONEUM: Normal aorta. No retroperitoneal lymphadenopathy. Slight thickening of the great toe In the left. Degenerative and in the pelvis is seen which may indicate previous inflammatory changes. MUSCULOSKELETAL: Superficial soft tissues: The superficial soft tissues are normal. Bones: Normal spine. IMPRESSION: 1. No evidence of appendicitis, diverticulitis or intestinal obstruction. 2. Fat infiltration of the liver. Slightly prominent CBD. 3. Thickened wall of the urinary bladder. Evaluation for cystitis advised. 4. Left ovarian cyst. 5. Constipation. Pain Reviewed, dictated and finalized at location A.
[2024-06-16 11:35] VITALS: BP 168/98; PULSE 74; RESP 18; TEMP 37.2; O2SAT 100
[2024-06-16 11:43] LABS: BEDSIDEPREGUCG Negative (Negative)
--- NOTE | 2024-06-16 11:54 | ED.ABDPAIN ---
HPI - Abdominal Pain General Chief Complaint: Abdominal Pain Stated Complaint: RUQ pain-hx Pancreatitis Time Seen by Provider: 06/16/24 11:53 Source: patient History of Present Illness HPI narrative: 39 YEARS OLD WHITE FEMALE CAME TO THE ED WITH LEFT UPPER QUADRANT PAIN STARTED LAST NIGHT. PATIENT IS ALCOHOLIC FOR THE LAST 8 YEARS, LAST ALCOHOL INTAKE WAS MIDNIGHT, PATIENT NORMALLY STARTS DRINKING WHEN SHE WORKUP IN THE MORNING AT 10:00 A.M.. CURRENT TIME IS 12:30 P.M.. HISTORY OF ALCOHOLISM, DEPRESSION, ANXIETY AND NECROTIZING PANCREATITIS. PATIENT VAPES, DENIED DRUG USE. Related Data Home Medications ?Medication ?Instructions ?Recorded ?Confirmed ?Last Taken ?Type multivitamin 1 tablet PO DAILY 09/01/19 09/29/21 3 Days Ago History ~09/10/19 chlordiazepoxide 10 mg tablet 10 mg PO TID 09/29/21 09/29/21 Unknown History Allergies Allergy/AdvReac Type Severity Reaction Status Date / Time dexmedetomidine (From Allergy Severe Cardiac Verified 07/12/23 17:42 Precedex) arrest Review of Systems Review of Systems: All systems reviewed & are unremarkable except as noted in HPI and below PMFSH Past Medical History Medical History Hepatic steatosis Depression Alcohol abuse Cystic acne Eczema Anxiety Surgical History Surgical History History of laparoscopic cholecystectomy (08/2019) Family History Family History Mother Lupus Sibling Detached retina Grandparent Cancer Social History Social History Social History: Surrogate medical decision maker: Lalitha Piper, mother. Code status: Full code. Smoking packs per day: 0.5 Smoking cigarettes per day: 10.0 Years smoked: 10 Smoking pack-years: 5.00 Smoking status: Current every day smoker Tobacco type: e-cigarettes/vaping Additional smoking assessment comments: Quit using cigarettes in 2016, now vapes. Alcohol intake: current Drinks per week: 70 Alcohol use details: Previously drank a half of a 5th of vodka a day, now reportedly drinking less than a half pt. Substance use: unknown Living arrangements: alone Additional living arrangements comments: The patient lives with her fiance in [place]. 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 MUSCULOSKELETAL: NORMAL RANGE OF MOTION, NONTENDER BACK NEUROLOGIC: ALERT AND ORIENTED ?3, DIRECTOR PATIENT FINANCIAL SERVICES IS NORMAL TESTED, NO GROSS MOTOR DEFICIT, SLIGHTLY SHAKING Course Vital Signs Vital signs: Vital Signs Temperature 37.2 C 06/16/24 11:35 Pulse Rate 74 06/16/24 11:35 Respiratory Rate 18 06/16/24 11:35 Blood Pressure 168/98 H 06/16/24 11:35 Pulse Oximetry 100 06/16/24 11:35 Oxygen Delivery Room Air 06/16/24 11:35 Temperature 37.2 C 06/16/24 11:35 Pulse Rate 84 06/16/24 13:46 Respiratory Rate 20 06/16/24 13:46 Blood Pressure 137/97 H 06/16/24 13:46 Pulse Oximetry 98 06/16/24 13:46 Oxygen Delivery Room Air 06/16/24 11:35 MDM - Abdominal Pain MDM Narrative Medical decision making narrative: PATIENT PRESENTS WITH ABDOMINAL PAIN SINCE LAST NIGHT, VITAL SIGNS SHOWING BLOOD PRESSURE 168/98 OTHERWISE INSIGNIFICANT PHYSICAL EXAMINATION SHOWING EPIGASTRIC AND LEFT UPPER QUADRANT TENDERNESS DIFFERENTIAL DIAGNOSIS INCLUDE PANCREATITIS, GASTRITIS, ESOPHAGITIS, ALCOHOLIC HEPATITIS, URINARY TRACT INFECTION, CONSTIPATION BLOOD WORKUP TODAY INCLUDES CBC, CMP, PT, LIPASE, ALCOHOL LEVEL SHOWED AST 57, ALT 51 ALKALINE PHOSPHATASE 128, ALCOHOL LEVEL 37, LIPASE 29 URINALYSIS SHOWED EVIDENCE OF URINARY TRACT INFECTION CT ABDOMEN AND PELVIS WITH IV CONTRAST SHOWED CONSTIPATION, SIGN OF CYSTITIS DIAGNOSIS ALCOHOLISM, URINARY TRACT INFECTION, CONSTIPATION DISCHARGED ON MACROBID. THE PT WAS DISCHARGED TO HOME.THE PT,S CONDITION UPON DISCHARGE WAS FAIR,EDUCATION WAS PROVIDED TO THE PT IN REFERENCE TO THE FINAL IMPRESSION,DISCHARGE STUDY RESULTS,TREATMENT,PROGNOSIS AND NEED FOR FOLLOW UP . Differential Diagnosis Differential diagnosis: Likely other ( ABOVE) Medical Records Attestation: I reviewed the patient's medical records. Lab Data Attestation: I reviewed the patient's lab results. 06/16/24 13:10 06/16/24 13:10 Labs: Lab Results 06/16/24 06/16/24 06/16/24 Range/Units 11:41 12:21 13:10 WBC 5.9 (4.5-10.0) K/mm3 RBC 4.06 L (4.2-5.4) M/mm3 Hgb 12.8 (12.0-15.0) g/dL Hct 39.1 (37.0-47.0) % MCV 96.3 (80-100) fl MCH 31.5 (26-34) pg MCHC 32.7 (32-36) g/dl RDW 12.6 (11.5-14.5) % Plt Count 184 (150-375) k/mm3 MPV 9.1 (7.4-10.4) fl Immature Gran % (Auto) 0.3 (0-0.5) % Neut % (Auto) 58.6 (45.5-73.1) % Lymph % (Auto) 28.5 (18.3-44.2) % [place] % (Auto) 10.8 H (2.6-8.5) % Eos % (Auto) 1.0 (0-4.4) % Baso % (Auto) 0.8 (0.2-1.2) % Lymph # (Auto) 1.69 (0.9-3.2) K/mm3 [place] # (Auto) 0.6 (0.1-0.6) K/mm3 Eos # (Auto) 0.1 (0-0.3) K/mm3 Baso # (Auto) 0.1 (0.0-0.1) K/mm3 Abs Immat Gran (auto) 0.02 (0.00-0.031) K/mm3 Absolute Neuts (auto) 3.5 (1.3-6.7) K/mm3 Absolute Nucleated RBC 0.000 (0.0-0.012) K/mm3 Nucleated RBC % 0.0 (0.0-0.2) % PT 14.0 (11.1-14.7) Seconds INR 1.0 Sodium 138 (137-145) mmol/L Potassium 4.4 (3.4-5.0) mmol/L Chloride 103 (98-107) mmol/L Carbon Dioxide 23 (22-30) mmol/L Anion Gap 12 (4-12) mmol/L BUN 5 L D (7-17) mg/dL Creatinine 0.47 L (0.7-1.0) mg/dL Estim Creat Clear Calc 136 ml/min Estimated GFR > 60 (59 - ) Glucose 90 (65-110) mg/dL Calcium 8.7 (8.4-10.2) mg/dL Total Bilirubin 1.2 (0.2-1.3) mg/dL AST 57 H (14-36) U/L ALT 51 H (6-35) U/L Alkaline Phosphatase 128 H (38-126) U/L Total Protein 7.0 (6.3-8.2) g/dL Albumin 4.4 (3.5-5.1) g/dL Lipase 29 (23-300) U/L Urine Color Yellow (Yellow) Urine Appearance Turbid H (Clear) Urine pH >=9.0 H (5.0-9.0) Ur Specific [place] 1.022 (1.001-1.035) Urine Protein 1+ H (Negative) mg/dL Urine Glucose (UA) Negative (Negative) mg/dL Urine Ketones Negative (Negative) mg/dL Ur Blood (Man) Negative (Negative) Urine Nitrate Negative (Negative) Urine Bilirubin Negative (Negative) Urine Urobilinogen 2.0 H (<2.0) mg/dL Leukocyte Esterase Rfl 1+ H (Negative) DANIEL/UL Urine RBC 3-5 H (0-2) /hpf Urine WBC 21-50 H (0-3) /hpf Ur Squamous Epith Cells Moderate (Few) /hpf Urine Bacteria 4+ H /hpf Urine Casts 0-2 POC Urine HCG, Qual Negative (Negative) Ethyl Alcohol 37 (<10) mg/dL Imaging Data Radiologist's impression: ITS Impressions Abdomen/Pelvis CT 06/16/24 14:07 IMPRESSION: 1. No evidence of appendicitis, diverticulitis or intestinal obstruction. 2. Fat infiltration of the liver. Slightly prominent CBD. 3. Thickened wall of the urinary bladder. Evaluation for cystitis advised. 4. Left ovarian cyst. 5. Constipation. Pain Critical Care Time Critical Care Time Critical Care Time: No Discharge Plan Discharge Clinical Impression: Alcoholic, Urinary tract infection, Constipation Patient Disposition: Home Condition: Stable Instructions: Antibiotic Form, Constipation (ED), Urinary Tract Infection in Women (ED) Patient Language: Surinamese Prescriptions: New nitrofurantoin monohyd/m-cryst [Macrobid] 100 mg capsule 100 mg PO Q12H 10 Days Qty: 20 0RF Rx Instructions: must administer with a meal/food No Action multivitamin Tablet 1 tablet PO DAILY chlordiazepoxide 10 mg Tablet 10 mg PO TID famotidine 20 mg tablet 20 mg PO DAILY Qty: 30 0RF ondansetron 4 mg tablet,disintegrating 4 mg PO Q8H PRN (Reason: nausea and vomiting) Qty: 14 0RF Follow-up/Referrals: PHYSICIAN,JANITORIAL ACCOUNT MANAGER [Non-Staff] -
[2024-06-16] MEDS: SODIUM CHLORIDE 0.9% IV 1,000 ML 999 ML IV CONT (12:15)
[2024-06-16 12:31] LABS: Add Urine Microscopic? YES; Appearance Urine Turbid (Clear); Bacteria Urine 4+ /hpf; Bilirubin Urine Negative (Negative); Blood Urine Negative (Negative); Color Urine Yellow (Yellow); Glucose Urine UA Negative (Negative); Ketones Urine Negative (Negative); Leukocyte Esterase Ur 1+ LEU/UL (Negative); Nitrate Urine Negative (Negative); Non Pathogenic Casts 0-2; Protein Urine 1+ mg/dL (Negative); Specific Grav Ur 1.022 (1.001-1.035); Squamous Epithelial Cell Urine Moderate /hpf (Few); WBC Urine 21-50 /hpf (0-3); pH Urine >=9.0 (5.0-9.0)
[2024-06-16] MEDS: HYDROmorphone HCL INJ (*CRX) 2 MG/ML VIAL 0.5 MG IV PUSH (12:35)
[2024-06-16] MEDS: ONDANSETRON INJ 4 MG/2 ML VIAL IV PUSH (12:35)
--- OUTSIDE RECORDS SUMMARY | 2024-06-16 12:58 | XMS_ITS | Referral Summary ---
Author Organization [facility] Address [address] [place] [address] Care Team Providers Care Drill Rig Operator Name Role Phone Unknown, Notinfile Primary Care Provider Unavail able Suly Cui Unavailable + Miscellaneous, Not In File Unavailable Unava ilable Masha Dunbar DO Unavailable [phone] Erick Moise MD Unavailable [phone] Allergies No known active allergies Medications multivit zwrnwmzj-nova-[id number] A-calcium (THERA-M) 9 mg iron-400 mcg tablet Take 1 tablet by mouth daily Active famotidine (PEPCID) 20 mg tablet Take 1 tablet (20 mg total) by mouth 2 (two) times a day 60 tablet 11 2 Active acetaminophen (TYLENOL) 325 mg tabletIndicatio ns:Fever,Pain Take 2 tablets (650 mg total) by mouth every 4 (four) hours as needed for pain, headaches or fever 30 tablet 2 Active busPIRone (BUSPAR) 10 mg tabletIndicatio ns:Generalized Anxiety Disorder Take 1 tablet (10 mg total) by mouth 2 (two) times a day 60 tablet 11 2 Active QUEtiapine (SEROquel) 50 mg tablet Take 1 tablet (50 mg total) by mouth nightly 30 tablet 2 Active metoprolol tartrate (LOPRESSOR) 25 mg immediate release tablet Take 1 tablet (25 mg total) by mouth 2 (two) times a day 60 tablet 11 2 Active folic acid (FOLVITE) 1 mg tablet Take 1 tablet (1 mg total) by mouth daily 30 tablet 11 2 Active polyethylene glycol (MIRALAX) 17 gram packetIndicatio ns:constipation Take 1 packet (17 g total) by mouth daily as needed for constipation 2 Active oxyCODONE (ROXICODONE) 5 mg immediate release tabletIndicatio ns:Pain Take 1 tablet (5 mg total) by mouth every 4 (four) hours as needed for pain for up to 7 doses 7 tablet 2 Active piperacillin-ta zobactam (ZOSYN) 4.5 gram/100 mL IVBPIndications :Abdominal/Pelv ic Infection Infuse 100 mL (4.5 g total) into a venous catheter every 6 (six) hours Duration per Infectious diseases 2 Active thiamine (VITAMIN B1) 100 mg tablet Take 1 tablet (100 mg total) by mouth daily 30 tablet 11 2 Active Active Problems Problem Noted Date Diagnosed Date Pancreatitis, necrotizing 12/26/2021 Depression 12/26/2021 Lower extremity edema 12/01/2021 Moderate malnutrition 11/29/2021 Tachycardia 11/28/2021 Generalized anxiety disorder 11/26/2021 Assessment & Plan (11/26/2021 3:46 PM CDT): Chronic, persistent symptoms. I do not recommend use of benzodiazepines in the case of this patient in particular due to substance use issues (alcohol). Continue buspirone 10 mg twice daily. Pulmonary edema 11/26/2021 Alcohol dependence in early full remission 11/26 Assessment & Plan (11/26/2021 3:47 PM CDT): Chronic condition, needs to linkage to outpatient substance use treatment. Continued cessation highly advised. Sepsis 11/25/2021 Hypokalemia 11/25/2021 Hypomagnesemia 11/25/2021 Delirium 11/24/2021 Assessment & Plan (11/26/2021 3:48 PM CDT): Subacute, persistent, improving. Cognition remains sluggish with difficulty. Sensorium and currently intact. No change meds at time. Continue Seroquel 50 mg HS. Continue to monitor. Acute pancreatitis with infected necrosis 2021 Mild malnutrition 10/05/2021 Cardiac arrest 10/02/2021 Pancreatic duct leak 10/02/2021 Overview (10/25/2021): Added automatically from request for surgery [id number] Alcohol-induced acute pancreatitis with infected necrosis 10/02/2021 Overview (10/25/2021): Added automatically from request for surgery [id number] TERESA (acute kidney injury) Acute respiratory failure with hypoxia Social History Tobacco Use Types Packs/Day Years Used Date Smoking Tobacco: Smoker, Current Status Unknown Social Connection and Isolat ion Panel [NHANES] Answer Date Recorded In a typical week, how many times do you talk on the phone with family, friends, or neighbors? More than three times a week 11/22/2021 How often do you get togethe r with friends or relatives? More than three times a week 11/22/2021 How often do you attend chur ch or restorationism services? Never 11/22/2021 Do you belong to any clubs o r organizations such as taoism groups, unions, fraternal or athletic groups, or school groups? Yes 11/22/2021 How often do you attend meet ings of the clubs or organizations you belong to? More than 4 times per year 11/22/2021 Are you , , di vorced, , never , or living with a partner? Never 11/22/2021 Overall Financial Resource Strain (CARDIA) Answe r Date Recorded How hard is it for you to pa y for the very basics like food, housing, medical care, and heating? Somewhat hard 11/22/2021 Hunger Vital Sign Answer Date Recorded Within the past 12 months, y ou worried that your food would run out before you got the money to buy more. Never true 11/23/19 22 Within the past 12 months, t he food you bought just didn't last and you didn't have money to get more. Never true 11/22/2021 PRAPARE - Transportation Answer Date Re corded In the past 12 months, has l ack of transportation kept you from medical appointments or from getting medications? No 10/26 In the past 12 months, has l ack of transportation kept you from meetings, work, or from getting things needed for daily living? No 11/22/2021 Comments No Sex and Gender Information Value Date Recorded Sex Assigned at Not on file Legal Sex Female 5:37 PM [facility] Gender Identity Not on file Sexual Orientation Not on file Last Filed Vital Signs Vital Sign Reading Time Taken Comments Blood Pressure 111/84 03/28/2022 12:15 PM [facility] Pulse 69 03/28/2022 12:15 PM [facility] Temperature 37.1 C (98.7 F) 03/28/2022 12:09 PM [facility] Respiratory Rate 16 03/28/2022 12:09 PM [facility] Oxygen Saturation 96% 03/28/2022 12:15 PM [facility] Inhaled Oxygen Concentration - - Weight 55.8 kg (123 lb) 03/28/2022 11:50 AM [facility] Height 165.1 cm (5' 5 ) 03/28/2022 11:50 AM [facility] Body Mass Index 20.47 03/28/2022 11:50 AM [facility] Plan of Treatment Not on file Medical Devices Explanted Type Area Utilities And Maintenance Supervisor Device Identifier Shelf Expiration Date Model / Serial / Lot [employer] Garcia Flexi-Stent 7fr 7cm Small Pigtail Flexible .035in Stent [id number] - [id number] Explanted:Qty: 1 on 10/25/2021 by Erick Moise MD at [facility] Stent N/A: Bile Duct [employer] 07/23/2026 [id number] / / [id number] Insurance [facility] Advance Directives For more information, please contact: [phone] * Full Code (Latest Code Status on File) Date Activated Date Inactivated Comments 01/08/2022 11:17 AM 01/09/2022 5:21 AM * Full Code Date Activated Date Inactivated Comments 12/26/2021 5:20 PM 12/27/2021 5:19 PM * Full Code Date Activated Date Inactivated Comments 11/22/2021 3:37 AM 12/02/2021 9:53 PM * Full Code Date Activated Date Inactivated Comments 10/17/2021 4:18 PM 11/15/2021 5:46 PM * LIMITED - No CPR Date Activated Date Inactivated Comments 10/07/2021 2:42 PM 10/17/2021 4:18 PM Care Teams Drill Rig Operator Relationship Specialty Start Date End Date Unknown, Notinfile PCP - General 10/02/21 Suly Cui PA [address] [facility] [address] [place] [address] Physician Turn Laster Physician Turn Laster 11/15/21 Miscellaneous, Not In File 12/02/21 [place] [address] [place] [address] Consulting Physician Infectious Diseases 12/02/21 Erick Moise MD [address] [place] [address] Consulting Physician Gastroenterology 12/02/21
--- OUTSIDE RECORDS SUMMARY | 2024-06-16 12:58 | XMS_ITS | Clinical Summary ---
Author Organization [facility] [place] Address [address] [place] [address] Care Team Providers Care Parks Recreation Director Name Role Phone Herminia Treviño MD Primary Care Provider [phone] Allergies No known active allergies Medications busPIRone (BUSPAR) 15 mg Tablet Take 1 Tablet by mouth 2 times daily. Active cyanocobalamin (VITAMIN B-12) 1,000 mcg Tablet, Sublingual Place 1,000 mcg under tongue daily. 03/29/2023 Active DULoxetine (CYMBALTA) 60 mg Capsule, Delayed Release(E.C.) Take 1 Capsule by mouth daily. Active lurasidone (LATUDA) 40 mg Tablet tablet Take 40 mg by mouth daily with supper. 07/01/2023 Active multivitamin,ca lcium,minerals, iron,folic acid (THERA-M,THERA- M PLUS) 9 mg iron-400 mcg Tablet Take 1 Tablet by mouth daily. Active triamcinolone acetonide (KENALOG) 0.1 % Cream Apply to affected area 1 time daily as needed (Rash). Active Active Problems Problem Noted Date Diagnosed Date Current every day nicotine vaping 07/02/2023 Bipolar disorder, in partial remission, most recent episode mixed 07/02/2023 Abnormal LFTs (liver function tests) 07/02/2023 Macrocytosis 07/02/2023 Reactive depression (situational) 09/24/2017 Resolved Problems Problem Noted Date Diagnosed Date Resolved Date Mild alcohol abuse in sustai marli remission - August 2020 07/02/2023 08/31/2023 Alcohol dependence in early full remission 11/26/2021 07/02/2023 Overview (07/02/2023): Last Assessment & Plan: Chronic condition, needs to linkage to outpatient substance use treatment. Continued cessation highly advised. Alcohol-induced acute pancreatitis 10/02/2021 07/02/2023 Overview (07/02/2023): Added automatically from request for surgery [id number] Anxiety state 09/24/2017 07/02/2023 Encounters Date Type Department Care Team Description 06/07/2024 External Device Data ST[facility] ABSTRACTION Provider, Abstract 05/24/2024 External Device Data ST[facility] ABSTRACTION Provider, Abstract 05/11/2024 External Device Data [facility] ABSTRACTION Provider, Abstract 05/11/2024 External Device Data [facility] ABSTRACTION Provider, Abstract 04/30/2024 External Device Data ST[facility] ABSTRACTION Provider, Abstract 04/29/2024 External Device Data ST[facility] ABSTRACTION Provider, Abstract 04/26/2024 External Device Data ST[facility] ABSTRACTION Provider, Abstract 04/12/2024 External Device Data ST[facility] ABSTRACTION Provider, Abstract from Last 3 Months Immunizations Immunization Administration Dates Next Due (ADACEL/BOOSTRIX)(10 YR UP) TDAP VACCINE, 0.5ML, IM 08/31/2023,11/20/2017 Family History Medical History Relation Name Comments Alcohol abuse Brother Sudden Father MVA Brain Cancer Maternal Grandfather Emphysema Maternal Grandmother Hypertension Mother Other Mother Corneal Transpl ant Unknown Paternal Grandfather Relation Name Status Comments Brother Alive Father Maternal Grandfather Maternal Grandmother Mother Alive Paternal Grandfather Paternal Grandmother Social History Tobacco Use Types Packs/Day Years Used Date Smoking Tobacco: Former E-Cigarette/Mist Inhalation Device Smokeless Tobacco: Never Alcohol Use Standard Drinks/Week Comments Not Currently 0 (1 standard drink = 0.6 oz pure alcohol) rehab admissions 2020 and 2023 for vodka Comments No Sex and Gender Information Value Date Recorded Sex Assigned at Not on file Legal Sex Female 7:54 AM CDT Gender Identity Not on file Sexual Orientation Not on file Last Filed Vital Signs Vital Sign Reading Time Taken Comments Blood Pressure 118/82 10/16/2023 1:55 PM CDT Pulse 86 10/16/2023 1:55 PM CDT Temperature 37.3 C (99.1 F) 10/16/2023 1:55 PM CDT Respiratory Rate 18 10/16/2023 1:55 PM CDT Oxygen Saturation 97% 10/16/2023 1:55 PM CDT Inhaled Oxygen Concentration - - Weight 74.8 kg (165 lb) 10/16/2023 1:55 PM CDT Height 165.1 cm (5' 5 ) 10/16/2023 1:55 PM CDT Body Mass Index 27.46 10/16/2023 1:55 PM CDT Plan of Treatment Health Maintenance Due Date Last Done Comments DIABETES ANNUAL FOOT EXAM 2004 DIABETES ANNUAL RETINAL EXAM 2004 DIABETES HBA1C Q 6 MONTHS 2004 DIABETES MICROALBUMIN ANNUAL SCREEN 2004 HEPATITIS B VACCINES (1 of 3 - 19+ 3-dose series) 2005 HPV/Cotest (21-29) 2007 HPV/Cotest (30-65) 2016 CERVICAL CANCER SCREENING 05/24/2020 PAP SMEAR 05/24/2020 05/24/2017 (Previously completed) INFLUENZA VACCINE (#1) 2023 LDL CHOLESTEROL ANNUAL 06/18/2024 , 07/03/2017 DTAP/TDAP/TD VACCINES (3 - T d or Tdap) 08/30/2033 08/31/2023, 11/20/2017 HPV VACCINES Aged Out No longer eligi ble based on patient's age to complete this topic Procedures Procedure Name Priority Date/Time Associated Diagnosis Comments LIPID PANEL Routine 06/19/2023 1:41 PM CDT Screening for condition from Last 3 Months or Most Recently Relevant to Health Maintenance Results * (ABNORMAL) LIPID PANEL (06/19/2023 1:41 PM CDT) CHOLESTEROL 241(H) <200 mg/dL [facility] HDL 88 > OR = 50 mg/dL [facility] TRIGLYCERIDE 100 <150 mg/dL [facility] LDL CALCULATED 132(H) mg/dL (calc) [facility] Comment: Reference range: <100 Desirable range <100 mg/dL for primary prevention; <70 mg/dL for patients with CHD or diabetic patients with > or = 2 CHD risk factors. LDL-C is now calculated using the Kartik calculation, which is a validated novel method providing better accuracy than the Friedewald equation in the estimation of LDL-C. Petar WALTON et al. JOSH. 2013;310(19): 3345-7777 (http://education.BoostUp/faq/NGB492) CHOL/HDL RATIO 2.7 <5.0 (calc) [facility] TOTAL NON-HDL CHOL(LDL+VLDL) 153(H) <130 mg/dL (calc) [facility] Comment: For patients with diabetes plus 1 major ASCVD risk factor, treating to a non-HDL-C goal of <100 mg/dL (LDL-C of <70 mg/dL) is considered a therapeutic option. Test Performed at: [facility] [address] [place] [address] Maria Fernanda Denny Blood 06/19/2023 1:41 PM CDT 06/20/2023 1:32 AM CDT Sophie Lopez [facility] CHEMISTRY ORDERABLES Final Result [facility] [phone] [place] [address] [place] [address] from Last 3 Months or Most Recently Relevant to Health Maintenance Insurance * Guarantor: [employer] Account Type Relation to Patient Date of Phone Billing Address Corporate Employer ATTN: MORTEZA MARIE [address] [address] ALLEGIANCE OPEN ACCESS * Guarantor: [employer] Account Type Relation to Patient Date of Phone Billing Address Corporate Employer ATTN: M[employer]IE [address] [address] Care Teams Parks Recreation Director Relationship Specialty Start Date End Date Herminia Treviño MD [address] [place] [address] PCP - General Internal Medicine 08/31/23
--- OUTSIDE RECORDS SUMMARY | 2024-06-16 12:58 | XMS_ITS | Encounter Summary ---
Author Organization [facility] Healthcare Address [address] [place] [address] Care Team Providers Care Diversional Therapist'S Assistant Name Role Phone Unknown, Notinfile Primary Care Provider Unavail able Suly Cui Unavailable + Miscellaneous, Not In File Unavailable Unava ilable Masha Dunbar DO Unavailable [phone]- [phone] Erick Moise MD Unavailable [phone] Encounter Details Date Type Department Care Team (Late st Contact Info) Description 02/06/2022 Telephone [facility] - Interventional Radiology [address] [place] [address] Zelda Santos, MARIAH Social History Tobacco Use Types Packs/Day Years [...] often do you attend chur ch or church services? 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 Gender Identity Not on file Sexual Orientation Not on file documented as of this encounter Plan of Treatment Not on file documented as of this encounter Visit Diagnoses Not on filedocumented in this encounter Care Teams Diversional Therapist'S Assistant Relationship Specialty Start Date End Date Unknown, Notinfile PCP - General 10/02/21 Suly Cui PA [address] [facility] [address] [place] [address] Physician Credit Historian Physician Credit Historian 11/15/21 Miscellaneous, Not In File 12/02/21 [place] [address] [place] [address] Consulting Physician Infectious Diseases 12/02/21 Erick Moise MD [address] [place] [address] Consulting Physician Gastroenterology 12/02/21 documented as of this encounter
--- OUTSIDE RECORDS SUMMARY | 2024-06-16 12:58 | XMS_ITS | Encounter Summary ---
Author Organization [facility] Healthcare Address [address] [place] [address] Care Team Providers Care Kennel Operator Name Role Phone Unknown, Notinfile Primary Care Provider Unavail able Suly Cui Unavailable + Miscellaneous, Not In File Unavailable Unava ilable Masha Dunbar DO Unavailable [phone]- [phone] Erick Moise MD Unavailable [phone] Encounter Details Date Type Department Care Team (Late st Contact Info) Description 02/21/2022 Telephone [facility] - Interventional Radiology [address] [place] [address] Zelda Santos, MARIAH Social History [...] often do you attend chur ch or spiritism services? 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 Gender Identity Not on file Sexual Orientation Not on file documented as of this encounter Plan of Treatment Not on file documented as of this encounter Visit Diagnoses Not on filedocumented in this encounter Care Teams Kennel Operator Relationship Specialty Start Date End Date Unknown, Notinfile PCP - General 10/02/21 Suly Cui PA [address] [facility] [address] [place] [address] Physician Field Recorder Physician Field Recorder 11/15/21 Miscellaneous, Not In File 12/02/21 [place] [address] [place] [address] Consulting Physician Infectious Diseases 12/02/21 Erick Moise MD [address] [place] [address] Consulting Physician Gastroenterology 12/02/21 documented as of this encounter
--- OUTSIDE RECORDS SUMMARY | 2024-06-16 12:58 | XMS_ITS | Clinical Summary ---
Author Organization [facility] Address [address] [place] [address] Care Team Providers Care Latex Foam Worker Name Role Phone Unknown, Notinfile Primary Care Provider Unavail able Suly Cui Unavailable + Miscellaneous, Not In File Unavailable Unava ilable Masha Dunbar DO Unavailable [phone] Erick Moise MD Unavailable [phone] Allergies No known active allergies Medications multivit avsjhcuo-tbic-E A-calcium (THERA-M) 9 mg iron-400 mcg tablet [...] (10/25/2021): Added automatically from request for surgery [id number] Alcohol-induced acute pancreatitis with infected necrosis 10/02/2021 Overview (10/25/2021): Added automatically from request for surgery [id number] TERESA (acute kidney injury) Acute respiratory failure with hypoxia Surgical History Surgery Date Site/Laterality Comments CHOLECYSTECTOMY PARACENTESIS with abdominal drain placement ENDOTRACHEAL INTUBATION EMERGENT IMAGE GUIDED PARACENTESIS ABDOMEN 10/24/2021 N/A IMAGE GUIDED DRAINAGE PERITO HAMZAH OR RETROPERITONEAL FLUID COLLECTION 11/05/2021 N/A ABSCESS CATHETER INJECTION 12/11/2021 N/A ABSCESS CATHETER INJECTION 12/26/2021 N/A ABSCESS TUBE EXCHANGE 01/08/2022 N/A ABSCESS CATHETER INJECTION 01/23/2022 N/A ABSCESS TUBE EXCHANGE 02/07/2022 N/A ABSCESS TUBE EXCHANGE 02/21/2022 N/A ABSCESS TUBE EXCHANGE 03/06/2022 N/A ABSCESS CATHETER INJECTION 03/28/2022 N/A Medical History Medical History Date Comments Substance abuse (HCC) Alcohol-induced acute pancre atitis with uninfected necrosis Cardiac arrest (HCC) 10/01/2021 requires in tubation Family History Medical History Relation Name Comments Drug abuse Brother Saleem Drug abuse Father Depression Mother Anastasiya Hypertension Mother Anastasiya Relation Name Status Comments Brother Saleem Alive Father Mother Anastasiya Alive Social History Tobacco Use Types Packs/Day Years [...] often do you attend chur ch or catholic services? Never 11/22/2021 Do you belong to any clubs o r organizations such as adventist groups, unions, fraternal or athletic groups, or [...] on file Legal Sex Female 5:37 PM QA SPECIALIST Gender Identity Not on file Sexual Orientation Not on file Obstetrics History Last Filed Vital Signs Vital Sign Reading Time Taken Comments Blood Pressure 111/84 03/28/2022 12:15 PM QA SPECIALIST Pulse 69 03/28/2022 12:15 PM QA SPECIALIST Temperature 37.1 C (98.7 F) 03/28/2022 12:09 PM QA SPECIALIST Respiratory Rate 16 03/28/2022 12:09 PM QA SPECIALIST Oxygen Saturation 96% 03/28/2022 12:15 PM QA SPECIALIST Inhaled Oxygen Concentration - - Weight 55.8 kg (123 lb) 03/28/2022 11:50 AM QA SPECIALIST Height 165.1 cm (5' 5 ) 03/28/2022 11:50 AM QA SPECIALIST Body Mass Index 20.47 03/28/2022 11:50 AM QA SPECIALIST Plan of Treatment Health Maintenance Due Date Last Done Comments Cervical Cancer Screening 1986 Depression Screening 1986 Hepatitis C Screening 1986 Varicella Vaccines (1 of 2 - 13+ 2-dose series) 1999 Regular Well Visit/Exam 18-64 2004 Pneumococcal vaccine <65 (1 of 2 - PCV) 2005 Covid-19 Vaccine ( season) 2023 2022, 02/18/2021, 05/03/2020 Influenza Vaccine (#1) 2023 DTaP/Tdap/Td Vaccine (6 - Td or Tdap) 11/21/2027 11/20/2017, 03/29/1997, 11/23/1991, Additional history exists Hepatitis B Screening Completed 03/29/1997 , 10/26/1996, 09/24/1996 HPV Vaccines Aged Out No longer eligi ble based on patient's age to complete this topic Medical Devices Explanted Type Area Earth Moving Machine Operator Device Identifier Shelf Expiration Date Model / Serial / Lot [employer] Garcia Flexi-Stent 7fr 7cm Small Pigtail Flexible .035in Stent [id number] - [id number] Explanted:Qty: 1 on 10/25/2021 by Erick Moise MD at [facility] Stent N/A: Bile Duct [employer] 07/23/2026 [id number] / / [id number] Insurance [facility] PL[facility] KAMRON [place] [facility] Advance Directives For more information, please contact: [phone] * Full Code (Latest Code Status on [...] 2:42 PM 10/17/2021 4:18 PM Care Teams Latex Foam Worker Relationship Specialty Start Date End Date Unknown, Notinfile PCP - General 10/02/21 Suly Cui PA [address] [facility] [address] [place] [address] Physician Germination Worker Physician Germination Worker 11/15/21 Miscellaneous, Not In File 12/02/21 [place] [address] [place] [address] Consulting Physician Infectious Diseases 12/02/21 Erick Moise MD [address] [place] [address] Consulting Physician Gastroenterology 12/02/21
--- OUTSIDE RECORDS SUMMARY | 2024-06-16 12:58 | XMS_ITS | Clinical Summary ---
Author Organization [facility] Address [address] [place] [address] Care Team Providers Care Water Ski Assembler Name Role Phone Cat Bonilla MD Primary Care Provider [phone] Source Comments [facility],non-owned Affiliates and Associated Physician Practices is amultiple site organization consisting of ambulatory clinics and hospital sitesin [place], [place], [place] and [place]. This disclosure is being madepursuant to the Care Everywhere program and may not contain all information available regarding this patient. Last updated 17.[employer] [facility] Allergies No known active allergies Medications * Be aware that medications may not be up to date on this document. Alwaysverify current medications with the patient. gabapentin (Neurontin) 600 MG tablet Take 1 (one) tablet by mouth 3 times daily 3 Active carBAMazepine XR 12hr (TEGretol XR) 100 MG tablet Take 1 (one) tablet by mouth 3 times daily 3 Active busPIRone (Buspar) 10 MG tablet Take 1 (one) tablet by mouth 2 times daily 2 Active DULoxetine (Cymbalta) 30 MG capsule Take 1 (one) capsule by mouth 2 times daily 3 Active pregabalin (Lyrica) 100 MG capsule 1 qhs for 5 days, then 1 bid for 5 days, then 1 tid 270 capsule 3 Active Additional Information Patient not taking.Reported on 04/17/2023 QUEtiapine (SEROquel) 50 MG tablet Take 1 (one) tablet by mouth at bedtime 3 Active Active Problems Problem Noted Date Diagnosed Date Alcohol-induced acute pancre atitis, unspecified complication status 10/02/2021 Family History Medical History Relation Name Comments Lupus Mother Relation Name Status Comments Mother Social History Tobacco Use Types Packs/Day Years Used Date Smoking Tobacco: Former Cigarettes Q uit: 2013 Smokeless Tobacco: Never Tobacco Cessation:Counseling Given: Not Answered Alcohol Use Standard Drinks/Week Comments Not Currently 0 (1 standard drink = 0.6 oz pur e alcohol) Comments No Sex and Gender Information Value Date Recorded Sex Assigned at Not on file Legal Sex Female 7:31 AM CDT Gender Identity Not on file Sexual Orientation Not on file Last Filed Vital Signs Vital Sign Reading Time Taken Comments Blood Pressure 130/80 05/15/2023 3:04 PM CDT Pulse 105 05/15/2023 3:04 PM CDT Temperature 37.1 C (98.8 F) 04/17/2023 1:09 PM AUDIO VISUAL DESIGN ENGINEER Respiratory Rate 16 05/15/2023 3:04 PM CDT Oxygen Saturation 97% 05/15/2023 3:04 PM CDT Inhaled Oxygen Concentration - - Weight 73.5 kg (162 lb) 05/15/2023 3:04 PM CDT Height 165.1 cm (5' 5 ) 05/15/2023 3:04 PM CDT Body Mass Index 26.96 05/15/2023 3:04 PM CDT Plan of Treatment Health Maintenance Due Date Last Done Comments PAP SMEAR 1986 HIV SCREENING 2001 DTAP/TDAP/TD VACCINES (1 - Tdap) 2005 HEPATITIS B VACCINE (1 of 3 - 19+ 3-dose series) 2005 COVID-19 VACCINE ( - 2023-2 5 season) 2023 DEPRESSION SCREENING 02/24/2024 INFLUENZA VACCINE (Season Ended) 2024 ZOSTER VACCINE (1 of 2) 2036 HEPATITIS C SCREENING Completed 04/27/2023 HIB VACCINE Aged Out No longer eligi ble based on patient's age to complete this topic HPV VACCINE Aged Out No longer eligi ble based on patient's age to complete this topic MENINGOCOCCAL (Group B) VACC INE SHARED DECISION-MAKING Aged Out No longer eligibl e based on patient's age to complete this topic MENINGOCOCCAL GROUPS A/C/Y/W VACCINE Aged Out No longer eligible b ased on patient's age to complete this topic PNEUMOCOCCAL VACCINE Aged Out No long er eligible based on patient's age to complete this topic Procedures Procedure Name Priority Date/Time Associated Diagnosis Comments HEPATITIS C AB W/RFLX TO HCV RNA QN PCR Routine 04/27/2023 3:10 PM AUDIO VISUAL DESIGN ENGINEER Positive TALI (antinuclear antibody) CRP elevated Rash Polyarthralgia Dry mouth Numbness Sedimentation rate elevation from Last 3 Months or Most Recently Relevant to Health Maintenance Results * HEPATITIS C AB W/RFLX TO HCV RNA QN PCR (04/27/2023 3:10 PM AUDIO VISUAL DESIGN ENGINEER) Hepatitis C Antibody NON-REACTI VE NON-REACT NURY [facility] Comment: HCV antibody was non-reactive. There is no laboratory evidence of HCV infection. In most cases, no further action is required. However, if recent HCV exposure is suspected, a test for HCV RNA (test code 15666) is suggested. For additional information please refer to http://education.Peg Bandwidth/faq/EED13e3 (This link is being provided for informational/ educational purposes only.) Test Performed at: [facility] [address] [place] [address] SUMMER DE JESUS MD Blood BLOOD SPECIMEN / Unknown 04/27/2023 3:10 PM AUDIO VISUAL DESIGN ENGINEER 04/27/2023 3:12 PM AUDIO VISUAL DESIGN ENGINEER Agus Miramontes MD LAB - CHEMISTRY ORDERABLES Final Result [facility] [id number] [place] [address] from Last 3 Months or Most Recently Relevant to Health Maintenance [facility] Care Teams Water Ski Assembler Relationship Specialty Start Date End Date Cat Bonlila MD [facility] [place] [address] PCP - General Family Medicine 09/18/22
[2024-06-16 13:18] LABS: Basophils Absolute Auto 0.1 K/mm3 (0.0-0.1); Basophils Percent Auto 0.8 % (0.2-1.2); Eosinophils Absolute Auto 0.1 K/mm3 (0-0.3); Hematocrit 39.1 % (37.0-47.0); Hemoglobin 12.8 g/dL (12.0-15.0); Immature Granulocyte Absolute 0.02 K/mm3 (0.00-0.031); Immature Granulocyte Percent A 0.3 % (0-0.5); Lymphocytes Absolute Auto 1.69 K/mm3 (0.9-3.2); Lymphocytes Percent Auto 28.5 % (18.3-44.2); Mean Corpuscular HGB Conc 32.7 g/dl (32-36); Mean Corpuscular Hemoglobin 31.5 pg (26-34); Mean Corpuscular Volume 96.3 fl (80-100); Mean Platelet Volume 9.1 fl (7.4-10.4); Monocytes Absolute Auto 0.6 K/mm3 (0.1-0.6); Monocytes Percent Auto 10.8 % (2.6-8.5); Neutrophils Absolute Auto 3.5 K/mm3 (1.3-6.7); Neutrophils Percent Auto 58.6 % (45.5-73.1); Platelet Count Result 184 k/mm3 (150-375); Red Blood Count 4.06 M/mm3 (4.2-5.4); Red Cell Distribution Width 12.6 % (11.5-14.5); White Blood Count 5.9 K/mm3 (4.5-10.0)
[2024-06-16] MEDS: THIAMINE HCL INJ 100 MG, FOLIC ACID INJ 1 MG, MAGNESIUM SULFATE INJ 1 GM, MULTIVITAMINS... 250 MG IV CONT (13:18)
--- OUTSIDE RECORDS SUMMARY | 2024-06-16 13:19 | XMS_ITS | Encounter Summary ---
Author Organization [facility] Healthcare Address [address] [place] [address] Care Team Providers Care Order Schedule Clerk Name Role Phone Unknown, Notinfile Primary Care Provider Unavail able Suly Cui Unavailable + Miscellaneous, Not In File Unavailable Unava ilable Masha Dunbar DO Unavailable [phone]- [phone] Erick Moise MD Unavailable [phone] Encounter Details Date Type Department Care Team (Late st Contact Info) Description 02/06/2022 Telephone [facility] - Interventional Radiology [address] [place] [address] Zelda Santos, MARIAH Social History [...] often do you attend chur ch or congregation services? 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 Gender Identity Not on file Sexual Orientation Not on file documented as of this encounter Plan of Treatment Not on file documented as of this encounter Visit Diagnoses Not on filedocumented in this encounter Care Teams Order Schedule Clerk Relationship Specialty Start Date End Date Unknown, Notinfile PCP - General 10/02/21 Suly Cui PA [address] [facility] [address] [place] [address] Physician Trimmer Tailer Physician Trimmer Tailer 11/15/21 Miscellaneous, Not In File 12/02/21 [place] [address] [place] [address] Consulting Physician Infectious Diseases 12/02/21 Erick Moise MD [address] [place] [address] Consulting Physician Gastroenterology 12/02/21 documented as of this encounter
--- OUTSIDE RECORDS SUMMARY | 2024-06-16 13:19 | XMS_ITS | Clinical Summary ---
Author Organization [facility] Address [address] [facility] [address] Care Team Providers Care Application Support Name Role Phone Cat Bonilla MD Primary Care Provider [phone] Source Comments [facility],non-owned Affiliates and Associated Physician Practices is amultiple site organization consisting of ambulatory clinics and hospital sitesin [place], [place], [place] and [place]. This disclosure is being madepursuant to the Care Everywhere program and may not contain all information available regarding this patient. Last updated 17.[facility] Allergies No known active allergies Medications * [...] 37.1 C (98.8 F) 04/17/2023 1:09 PM UNDERWEAR TRIMMER Respiratory Rate 16 05/15/2023 3:04 PM CDT [...] RNA QN PCR Routine 04/27/2023 3:10 PM UNDERWEAR TRIMMER Positive TALI (antinuclear antibody) CRP elevated Rash Polyarthralgia Dry mouth Numbness Sedimentation rate elevation from Last 3 Months or Most Recently Relevant to Health Maintenance Results * HEPATITIS C AB W/RFLX TO HCV RNA QN PCR (04/27/2023 3:10 PM UNDERWEAR TRIMMER) Hepatitis C Antibody NON-REACTI VE NON-REACT NURY [facility] Comment: HCV antibody was non-reactive. There is no laboratory evidence of HCV infection. In most cases, no further action is required. However, if recent HCV exposure is suspected, a test for HCV RNA (test code 29191) is suggested. For additional information please refer to http://education.Mojeek/faq/FGJ93q8 (This link is being provided for informational/ educational purposes only.) Test Performed at: [facility] [address] [place] [address] SUMMER DE JESUS MD Blood BLOOD SPECIMEN / Unknown 04/27/2023 3:10 PM UNDERWEAR TRIMMER 04/27/2023 3:12 PM UNDERWEAR TRIMMER Agus Miramontes MD LAB - CHEMISTRY ORDERABLES Final Result [facility] [id number] [place] [address] from Last 3 Months or Most Recently Relevant to Health Maintenance [facility] Care Teams Application Support Relationship Specialty Start Date End Date Cat Bonilla MD [facility] [place] [address] PCP - General Family Medicine 09/18/22
--- OUTSIDE RECORDS SUMMARY | 2024-06-16 13:19 | XMS_ITS | Clinical Summary ---
Author Organization [facility] Address [address] [place] [address] Care Team Providers Care Diesel Tractor Operator Name Role Phone Unknown, Notinfile Primary Care Provider Unavail able Suly Cui Unavailable + Miscellaneous, Not In File Unavailable Unava ilable Masha Dunbar DO Unavailable [phone] Erick Moise MD Unavailable [phone] Allergies No known active allergies Medications multivit avlbzxgp-szxq-C A-calcium (THERA-M) 9 mg iron-400 mcg tablet [...] (10/25/2021): Added automatically from request for surgery [id number] Alcohol-induced acute pancreatitis with infected necrosis 10/02/2021 Overview (10/25/2021): Added automatically from request for surgery [id number] TERESA (acute kidney injury) Acute respiratory failure [...] often do you attend chur ch or orthodox services? 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 Gender Identity Not on file Sexual Orientation Not on file Obstetrics History Last Filed Vital Signs Vital Sign Reading Time Taken Comments Blood Pressure 111/84 03/28/2022 12:15 PM PRESCHOOL SUBSTITUTE TEACHER Pulse 69 03/28/2022 12:15 PM PRESCHOOL SUBSTITUTE TEACHER Temperature 37.1 C (98.7 F) 03/28/2022 12:09 PM PRESCHOOL SUBSTITUTE TEACHER Respiratory Rate 16 03/28/2022 12:09 PM PRESCHOOL SUBSTITUTE TEACHER Oxygen Saturation 96% 03/28/2022 12:15 PM PRESCHOOL SUBSTITUTE TEACHER Inhaled Oxygen Concentration - - Weight 55.8 kg (123 lb) 03/28/2022 11:50 AM PRESCHOOL SUBSTITUTE TEACHER Height 165.1 cm (5' 5 ) 03/28/2022 11:50 AM PRESCHOOL SUBSTITUTE TEACHER Body Mass Index 20.47 03/28/2022 11:50 AM PRESCHOOL SUBSTITUTE TEACHER Plan of Treatment Health Maintenance Due Date [...] this topic Medical Devices Explanted Type Area Accelerator Systems Director Device Identifier Shelf Expiration Date Model / Serial / Lot [email or web address] Garcia Flexi-Stent 7fr 7cm Small Pigtail Flexible .035in Stent [id number] - [id number] Explanted:Qty: 1 on 10/25/2021 by Erick Moise MD at [facility] Stent N/A: Bile Duct [email or web address] 07/23/2026 [id number] / / [id number] Insurance [facility] PL[facility] [employer]RON CORD[employer] [facility] Advance Directives For more information, please contact: [phone] * Full Code (Latest Code Status on [...] 2:42 PM 10/17/2021 4:18 PM Care Teams Diesel Tractor Operator Relationship Specialty Start Date End Date Unknown, Notinfile PCP - General 10/02/21 Suly Cui PA [address] [facility] [address] [place] [address] Physician Ore Smelter Physician Ore Smelter 11/15/21 Miscellaneous, Not In File 12/02/21 [place] [address] [place] [address] Consulting Physician Infectious Diseases 12/02/21 Erick Moise MD [address] [place] [address] Consulting Physician Gastroenterology 12/02/21
--- OUTSIDE RECORDS SUMMARY | 2024-06-16 13:19 | XMS_ITS | Clinical Summary ---
[facility] [place] Address [address] [place] [address] Care Team Providers Care C.O.D. Biller Name Role Phone Herminia Treviño MD Primary Care Provider [phone] Allergies No known active allergies Medications busPIRone [...] (07/02/2023): Added automatically from request for surgery [id number] Anxiety state 09/24/2017 07/02/2023 Encounters Date Type [...] LDL-C. Petar WALTON et al. JOSH. 2013;310(19): 2390-7306 ([email or web address]) CHOL/HDL RATIO 2.7 <5.0 (calc) PhantomTatiana Dickinson TOTAL NON-HDL CHOL(LDL+VLDL) 153(H) <130 mg/dL (calc) PhantomTatiana Dickinson Comment: For patients with diabetes plus 1 major ASCVD risk factor, treating to a non-HDL-C goal of <100 mg/dL (LDL-C of <70 mg/dL) is considered a therapeutic option. Test Performed at: [place] [address] [place] [address] Maria Fernanda Denny Blood 06/19/2023 1:41 PM CDT 06/20/2023 1:32 AM CDT Sophie Lopez [facility] CHEMISTRY ORDERABLES Final Result [facility] [phone] [place] [address] [place] [address] from Last 3 Months or Most Recently Relevant to Health Maintenance Insurance * Guarantor: [employer] D (C) Account Type Relation to Patient Date of Phone Billing Address Corporate Employer ATTN: MORTEZA MARIE [address] [address] ALLEGIANCE OPEN ACCESS * Guarantor: [employer] Account Type Relation to Patient Date of Phone Billing Address Corporate Employer ATTN: M[employer]TE[employer]IE [address] [address] Care Teams C.O.D. Biller Relationship Specialty Start Date End Date Herminia Treviño MD [address] [place] [id number] PCP - General Internal Medicine 08/31/23
--- OUTSIDE RECORDS SUMMARY | 2024-06-16 13:19 | XMS_ITS | Encounter Summary ---
Author Organization [facility] Address [address] [place] [address] Care Team Providers Care Sweet Pickled Fruit Maker Name Role Phone Unknown, Notinfile Primary Care Provider Unavail able Suly Cui Unavailable + Miscellaneous, Not In File Unavailable Unava ilable Masha Dunbar DO Unavailable [phone] Erick Moise MD Unavailable [phone] Encounter Details Date Type Department Care Team (Late st Contact Info) Description 02/21/2022 Telephone [facility] - Interventional Radiology [address] [place] [address] Zelda Santos, MARIAH Social History [...] often do you attend chur ch or muslim services? 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 Gender Identity Not on file Sexual Orientation Not on file documented as of this encounter Plan of Treatment Not on file documented as of this encounter Visit Diagnoses Not on filedocumented in this encounter Care Teams Sweet Pickled Fruit Maker Relationship Specialty Start Date End Date Unknown, Notinfile PCP - General 10/02/21 Suly Cui PA [address] [facility] [address] [place] [address] Physician Talent Assistant Physician Talent Assistant 11/15/21 Miscellaneous, Not In File 12/02/21 [place] [address] [place] [address] Consulting Physician Infectious Diseases 12/02/21 Erick Moise MD [address] [place] [address] Consulting Physician Gastroenterology 12/02/21 documented as of this encounter
--- OUTSIDE RECORDS SUMMARY | 2024-06-16 13:19 | XMS_ITS | Referral Summary ---
Author Organization [facility] Address [address] [place] [address] Care Team Providers Care Salesperson Furs Name Role Phone Unknown, Notinfile Primary Care Provider Unavail able Suly Cui Unavailable + Miscellaneous, Not In File Unavailable Unava ilable Masha Dunbar DO Unavailable [phone] Erick Moise MD Unavailable [phone] Allergies No known active allergies Medications multivit kpwlxopf-palx-Y A-calcium (THERA-M) 9 mg iron-400 mcg tablet [...] (10/25/2021): Added automatically from request for surgery [id number] Alcohol-induced acute pancreatitis with infected necrosis 10/02/2021 Overview (10/25/2021): Added automatically from request for surgery [id number] TERESA (acute kidney injury) Acute respiratory failure [...] often do you attend chur ch or adventism services? 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 Gender Identity Not on file Sexual Orientation Not on file Last Filed Vital Signs Vital Sign Reading Time Taken Comments Blood Pressure 111/84 03/28/2022 12:15 PM COUNTY AUDITOR Pulse 69 03/28/2022 12:15 PM COUNTY AUDITOR Temperature 37.1 C (98.7 F) 03/28/2022 12:09 PM COUNTY AUDITOR Respiratory Rate 16 03/28/2022 12:09 PM COUNTY AUDITOR Oxygen Saturation 96% 03/28/2022 12:15 PM COUNTY AUDITOR Inhaled Oxygen Concentration - - Weight 55.8 kg (123 lb) 03/28/2022 11:50 AM COUNTY AUDITOR Height 165.1 cm (5' 5 ) 03/28/2022 11:50 AM COUNTY AUDITOR Body Mass Index 20.47 03/28/2022 11:50 AM COUNTY AUDITOR Plan of Treatment Not on file Medical Devices Explanted Type Area Lead Designer Device Identifier Shelf Expiration Date Model / Serial / Lot [employer] Garcia Flexi-Stent 7fr 7cm Small Pigtail Flexible .035in Stent [id number] - [id number] Explanted:Qty: 1 on 10/25/2021 by Erick Moise MD at [facility] Stent N/A: Bile Duct [employer] 07/23/2026 [id number] / / [id number] Insurance [facility] PLAN Advance Directives For more information, please contact: [phone] * Full Code (Latest Code Status on [...] 2:42 PM 10/17/2021 4:18 PM Care Teams Salesperson Furs Relationship Specialty Start Date End Date Unknown, Notinfile PCP - General 10/02/21 Suly Cui PA [address] [facility] [address] [place] [address] Physician Combatant Swimmer Physician Combatant Swimmer 11/15/21 Miscellaneous, Not In File 12/02/21 [place] [address] [place] [address] Consulting Physician Infectious Diseases 12/02/21 Erick Moise MD [address] [place] [address] Consulting Physician Gastroenterology 12/02/21
[2024-06-16] MEDS: LORazepam INJ (*CRX) 2 MG/ML VIAL IV PUSH (13:24)
[2024-06-16 13:36] LABS: Ethanol 37 mg/dL (<10)
[2024-06-16 13:45] LABS: Alanine Aminotransferase 51 U/L (6-35); Albumin Level 4.4 g/dL (3.5-5.1); Alkaline Phosphatase 128 U/L (38-126); Anion Gap 12 mmol/L (4-12); Aspartate Amino Transferase 57 U/L (14-36); Bilirubin,Total 1.2 mg/dL (0.2-1.3); Blood Urea Nitrogen 5 mg/dL (7-17); Calcium 8.7 mg/dL (8.4-10.2); Carbon Dioxide 23 mmol/L (22-30); Chloride 103 mmol/L (98-107); Estimated CRCL calculation 136 ml/min; Estimated Glomerular Filt Rate > 60; Glucose 90 mg/dL (65-110); Lipase 29 U/L (23-300); Potassium 4.4 mmol/L (3.4-5.0); Sodium 138 mmol/L (137-145)
[2024-06-16 13:46] VITALS: BP 137/97; PULSE 84; RESP 20; O2SAT 98
[2024-06-16 14:57] VITALS: BP 133/89; PULSE 95; RESP 16; O2SAT 98
== END 2024-06-16 14:58 | disposition home or self-care (01) ==
PROVIDERS: Emergency Provider Emergency Medicine
DX: F10.10 Alcohol abuse, uncomplicated (principal); Y90.1 Blood alcohol level of 20-39 mg/100 ml; N39.0 Urinary tract infection, site not specified; K59.00 Constipation, unspecified; F17.290 Nicotine dependence, other tobacco product, uncomplicated; F41.8 Other specified anxiety disorders
CPT/HCPCS: 36415; 74177; 80053; 81001; 81025; 82077; 83690; 85025; 85610; 96361; 96374; 96375; 99284; J1171; J2060; J2405; J3411; J3475; J7030; Q9967

== ENCOUNTER 2024-11-11 14:17 | Emergency (ER) | payer OTHER, MEDICAID, SELFPAY ==
[2024-11-11 14:25] VITALS: BP 119/79; PULSE 75; RESP 20; TEMP 36.8; O2SAT 99
[2024-11-11 14:53] LABS: EDUAAPPEAR Cloudy; EDUABILI Negative (Negative); EDUABLOOD Negative (Negative); EDUACOLOR1 Yellow; EDUAGLUCOSE Negative (Negative); EDUAKETONE Negative (Negative); EDUALEUKO 1+ (Negative); EDUANITRATE Positive (Negative); EDUAPH 6.0; EDUAPROTEIN Negative (Negative); EDUASPGRAVITY 1.020; EDUAUROBILI 0.2
--- NOTE | 2024-11-11 15:10 | ED.FEMALEGU ---
HPI - Female Genitourinary General Chief complaint: Urogenital-Female Stated complaint: UTI Time Seen by Provider: 11/11/24 15:00 Source: patient and RN notes reviewed Mode of arrival: ambulatory Limitations: no limitations History of Present Illness HPI Narrative: 39-year-old female presents Express Care complaining of urinary symptoms for 3 weeks. Patient reports having cloudy and foul-smelling urine.. Patient denies any fevers, dysuria, abdominal pain, body aches, chills, nausea, vomiting, diarrhea, hematuria, vaginal discharge, vaginal bleeding. Patient denies any concerns for STDs. Patient has not taken anything [id number] for symptoms. 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 Related Data Home Medications ?Medication ?Instructions ?Recorded ?Confirmed ?Last Taken ?Type multivitamin 1 tablet PO DAILY 09/01/19 11/11/24 3 Days Ago History ~09/10/19 chlordiazepoxide 10 mg tablet 10 mg PO TID 09/29/21 11/11/24 Unknown History duloxetine 60 mg capsule,delayed mg PO 11/11/24 Unknown History release gabapentin 300 mg capsule mg 11/11/24 Unknown History Allergies Allergy/AdvReac Type Severity Reaction Status Date / Time dexmedetomidine (From Allergy Severe Cardiac Verified 11/11/24 14:37 Precedex) arrest Review of Systems Review of Systems: CONSTITUTIONAL: Denies fever, chills, body aches, or sweats. EYES: Denies visual changes, redness, or discharge. ENT: Denies rhinorrhea, congestion, sore throat, or otalgia. CARDIOVASCULAR: Denies chest pain, palpitations, or edema. RESPIRATORY: Denies cough or dyspnea. GASTROINTESTINAL: Denies abdominal pain, nausea, vomiting, or diarrhea. GENITOURINARY: Positive cloudy and foul-smelling urine. Negative for for dysuria, increased frequency, hematuria, vaginal bleeding, vaginal discharge. SKIN: Denies rash or itching. MUSCULOSKELETAL: Denies back pain, joint pain, or myalgia. NEUROLOGIC: Denies headache, numbness, or weakness. PSYCHIATRIC: Denies anxiety or depression. All other systems reviewed are negative, except as documented in HPI. [facility] Past Medical History Medical History Hepatic steatosis Depression Alcohol abuse Cystic acne Eczema Anxiety Surgical History Surgical History History of laparoscopic cholecystectomy (08/2019) Family History Family History Mother Lupus Sibling Detached retina Grandparent Cancer Social History Social History Social History: Surrogate medical decision maker: Lalitha Piper, mother. Code status: Full code. Smoking packs per day: 0.5 Smoking cigarettes per day: 10.0 Years smoked: 10 Smoking pack-years: 5.00 Smoking status: Current every day smoker Tobacco type: e-cigarettes/vaping Additional smoking assessment comments: Quit using cigarettes in 2016, now vapes. Alcohol intake: current Drinks per week: 70 Alcohol use details: Previously drank a half of a 5th of vodka a day, now reportedly drinking less than a half pt. Substance use: unknown Living arrangements: alone Additional living arrangements comments: The patient lives with her fiance in [place]. Occupation/Education: occupation Additional occupation/education comments: Artist, works from home. Spiritual care concerns: No Comments At the time of my signature, I reviewed and agree with the nursing past medical, surgical, social, and family history. There is no relevant family history pertinent to the patient complaint. Exam Narrative: GENERAL: This is a well-nourished, well-developed adult, in no apparent distress. They are non ill-appearing, nontoxic appearing. HEAD: normocephalic, atraumatic. EYES: Sclera clear/white. Vision is grossly intact. Conjunctiva normal bilaterally. Extraocular movements intact. EARS: External ears normal,Hearing grossly intact. NOSE: External nose normal THROAT: Mucous membranes moist NECK: Normal range of motion CARDIOVASCULAR: Regular rate and rhythm. Normal S1-S2. No clicks, gallops, rubs, murmurs. RESPIRATORY: Respiratory rate normal, respiratory effort nonlabored, no respiratory distress. Lung sounds clear to auscultation throughout. Lung sounds equal bilaterally. No adventitious lung sounds. GASTROINTESTINAL: Abdomen soft, flat, non-tender, nondistended. Bowel sounds are active. No hepato-splenomegaly, or palpable masses. No guarding or rigidity. No rebound tenderness. SKIN: warm, Dry, intact with no suspicious lesions or rash, good texture and turgor. NEURO: awake, alert, and oriented to person, place and time. There were no obvious focal neurologic abnormalities. EXTREMITIES: No joint tenderness, effusion, or edema noted. BACK: Nontender without deformity. No CVA tenderness. Course Course Emergency Course: Portions of this record may have been created with voice recognition software Level of Care: Express Care Visit Vital Signs Vital signs: Vital Signs Temperature 98.2 F 11/11/24 14:25 Pulse Rate 75 11/11/24 14:25 Respiratory Rate 20 11/11/24 14:25 Blood Pressure 119/79 11/11/24 14:25 Pulse Oximetry 99 11/11/24 14:25 Oxygen Delivery Room Air 11/11/24 14:25 Temperature 98.2 F 11/11/24 14:25 Pulse Rate 75 11/11/24 14:25 Respiratory Rate 20 11/11/24 14:25 Blood Pressure 119/79 11/11/24 14:25 Pulse Oximetry 99 11/11/24 14:25 Oxygen Delivery Room Air 11/11/24 14:25 MDM - Female Genitourinary MDM Narrative Medical decision making narrative: Urine dipstick positive for leukocytes and nitrates. Urine culture pending. No CVA tenderness, no systemic symptoms, low suspicion for pyelonephritis. Patient appears to have a urinary tract infection. Go ahead and treat with Bactrim. Discussed physical exam findings. Advised supportive measures and signs/symptoms to go to the ER. Pt is appropriate for outpt treatment and f/u. Differential Diagnosis Differential diagnosis: Likely urinary tract infection, cystitis and other (Pyelonephritis) Lab Data Attestation: I reviewed the patient's lab results. Labs: Lab Results 11/11/24 Range/Units 14:29 POC Urine Color Yellow POC Urine Clarity Cloudy POC Urine pH 6.0 POC Ur Specif [place] 1.020 POC Urine Protein Negative (Negative) POC Ur Glucose (UA) Negative (Negative) POC Urine Ketones Negative (Negative) POC Urine Blood Negative (Negative) POC Urine Nitrite Positive (Negative) POC Urine Bilirubin Negative (Negative) POC Urine Urobilinogen 0.2 POC U Leukocyte Esteras 1+ (Negative) Discharge Plan Discharge Clinical Impression: Urinary tract infection Qualifiers: Urinary tract infection type: site unspecified Hematuria presence: without hematuria Qualified Code(s): N39.0 - Urinary tract infection, site not specified Patient Disposition: Home Condition: Stable Instructions: Antibiotic Form, Urinary Tract Infection in Women (ED) Additional Instructions: Take the antibiotic as prescribed The urine will be sent of for a culture to identify what type of bacteria is causing your infection. If the culture shows that the antibiotic will not get rid of your infection, you will be notified and a new antibiotic will be called in for you. Increase water intake you will need to follow up with your PCP 3-5 days. Go to the ER for any worsening symptoms, abdominal pain, flank pain, fevers, nausea, vomiting, or any other concerns Patient Language: Armenian Prescriptions: New sulfamethoxazole-trimethoprim [Bactrim DS] 800-160 mg tablet 1 tablet PO Q12H 5 Days Qty: 10 0RF No Action gabapentin 300 mg capsule duloxetine 60 mg capsule,delayed release(DR/EC) PO multivitamin Tablet 1 tablet PO DAILY chlordiazepoxide 10 mg Tablet 10 mg PO TID famotidine 20 mg tablet 20 mg PO DAILY Qty: 30 0RF Follow-up/Referrals: PHYSICIAN,PUBLIC AID ELIGIBILITY ASSISTANT [Primary Care Provider, Internal Medicine] Time of Disposition: 15:05
== END 2024-11-11 15:10 | disposition home or self-care (01) ==
DX: N39.0 Urinary tract infection, site not specified (principal); F17.290 Nicotine dependence, other tobacco product, uncomplicated; K76.0 Fatty (change of) liver, not elsewhere classified
CPT/HCPCS: 81003; 87077; 87086; 87186; 99213; G0463